=== PATIENT | female | born 1995 | race Caucasian/White ===

== ENCOUNTER → 2016-10-09 | Outpatient (CLI) | payer MEDICAID ==
[~2016-10-09] MED LIST: ACHD5005 PO; IBP600T1 PO; LVT.05T PO; PREN1TAB19 PO
--- NOTE | 2016-10-09 19:42 | Diagnostic Imaging Report ---
OB ultrasound. INDICATION: survey. FINDINGS: There is a single intrauterine . heart rate is 165 beats per minutes. The placenta is anterior. There is no placenta previa. The cervix is 4.4 cm in length and is closed. The posterior fossa, the lateral ventricles, the urinary bladder, the stomach, the mid and lower spine appear unremarkable. The cord insertion, the three-vessel view, the four-chamber view, and the upper spine are not well seen. The kidneys demonstrate no hydronephrosis or cystic mass. The growth parameters are BPD at 22 weeks and 4 days, head circumference at 22 weeks and 1 day, abdominal circumference at 21 weeks and 0 days, and femur length at 22 weeks and 4 days. These are all averaged at 22 weeks and 1 day which is concordant with provided WANDA established at an outside facility of 02/14/2017 with current gestational age of 21 weeks and 5 days. IMPRESSION: Follow-up study to reevaluate the upper spine, four-chamber view, the cord insertion, and three-vessel cord is recommended. Dictated by: Dictated on workstation # [id number]
== END ==
LOC: RAD 15:28
PROVIDERS: ATTEND Family Medicine
DX: O09.212 Supervision of pregnancy with history of pre-term labor, second trimester (principal); Z3A.22 22 weeks gestation of pregnancy
CPT/HCPCS: 76805

== ENCOUNTER 2016-11-13 18:42 | Outpatient (CLI) | payer MEDICAID ==
[~2016-11-13] VITALS: Ht 160 cm; Wt 55.3 kg
[2016-11-13 19:07] VITALS: BP 113/70
== END 2016-11-13 19:50 | disposition home or self-care (01) ==
LOC: WSo 18:42
PROVIDERS: ATTEND Family Medicine
DX: O99.52 Diseases of the respiratory system complicating childbirth (principal); R07.89 Other chest pain; Z3A.23 23 weeks gestation of pregnancy
CPT/HCPCS: 99212

== ENCOUNTER 2016-11-13 19:54 | Emergency (ER) | payer MEDICAID ==
[~2016-11-13] VITALS: Ht 160 cm; Wt 55.3 kg
[2016-11-13] MEDS ORDERED: NS IV 1000 ML 1,000 ML IV ONE (20:36)
[2016-11-13 20:44] LABS: BASOPHILS % (AUTO) 0 % (0-10); EOSINOPHILS # (AUTO) 0.1 10^3/uL (0.0-0.3); EOSINOPHILS % (AUTO) 1 % (0-10); LYMPHOCYTES # (AUTO) 3.4 X 10^3 (1.0-4.0); LYMPHOCYTES % (AUTO) 31 % (12-44); MEAN CORPUSCULAR HEMOGLOBIN 31 PG (25-34); MEAN CORPUSCULAR HGB CONC 34 G/DL (32-36); MEAN CORPUSCULAR VOLUME 90 FL (80-99); MEAN PLATELET VOLUME 10.1 FL (7.4-10.4); MONOCYTES # (AUTO) 0.9 X 10^3 (0.0-1.0); MONOCYTES % (AUTO) 8 % (0-12); NEUTROPHILS # (AUTO) 6.5 X 10^3 (1.8-7.8); NEUTROPHILS % (AUTO) 59 % (42-75); PLATELET COUNT 312 10^3/uL (130-400); RED BLOOD COUNT 3.98 10^6/uL (4.35-5.85)
[2016-11-13] MEDS ORDERED: ANTACID SUSP 30 ML UDC (MYLANTA) PO ONE (20:45)
[2016-11-13] MEDS ORDERED: FAMOTIDINE 20MG/2ML IV (PEPCID) IVP ONE (20:45)
[2016-11-13] MEDS ORDERED: LIDOCAINE 2% VISCOUS 15 ML UDC PO ONE (20:45)
[2016-11-13 20:54] LABS: BILIRUBIN,URINE NEGATIVE (NEGATIVE); KETONES,URINE NEGATIVE (NEGATIVE); LEUKOCYTE ESTERASE ,URINE 1+ (NEGATIVE); NITRITE,URINE NEGATIVE (NEGATIVE); PH,URINE 8 (5-9); PROTEIN,URINE NEGATIVE (NEGATIVE); UROBILINOGEN,URINE NORMAL (NORMAL)
[2016-11-13 20:55] LABS: WBC,URINE 0-2 /HPF
[2016-11-13 20:58] LABS: ALANINE AMINOTRANSFERASE 24 U/L (0-55); ALBUMIN 3.7 G/DL (3.2-4.5); ANION GAP 9 MMOL/L (5-14); ASPARTATE AMINO TRANSFERASE 22 U/L (5-34); BILIRUBIN,TOTAL 0.4 MG/DL (0.1-1.0); BLOOD UREA NITROGEN 10 MG/DL (7-18); BUN/CREATININE RATIO 13; CALCIUM 9.2 MG/DL (8.5-10.1); CARBON DIOXIDE 21 MMOL/L (21-32); CHLORIDE 106 MMOL/L (98-107); CREATININE SERUM 0.79 MG/DL (0.60-1.30); GFR ESTIMATED > 60; GLUCOSE 88 MG/DL (70-105); MAGNESIUM 2.1 MG/DL (1.8-2.4); POTASSIUM 3.4 MMOL/L (3.6-5.0); SODIUM 136 MMOL/L (135-145); TOTAL PROTEIN 7.2 G/DL (6.4-8.2)
--- NOTE | 2016-11-13 21:07 | Diagnostic Imaging Report ---
EXAMINATION: CHEST (PA AND LATERAL) CLINICAL INDICATION: 20-year-old female, chest pain. COMPARISON: None. FINDINGS: Heart size and mediastinal contours are unremarkable. There is no identified pneumothorax. There is no pleural effusion. There is no identified focal airspace consolidation. IMPRESSION: No identified acute cardiopulmonary abnormality. Dictated by: Dictated on workstation # [id number]
[2016-11-13] MEDS ORDERED: ONDANSETRON 4 MG/2 ML (SDV) Z0FRAN IVP ONE (21:15)
--- NOTE | 2016-11-13 21:15 | ED Chest Pain ---
General Chief Complaint: Chest Pain Stated Complaint: CHEST PAIN Nursing Triage Note: PT STATES SHE CAME HOME AROUND 1700 TODAY AND STARTED FEELING HEAVINESS IN HER CHEST. SHE REPORTS DIZZINESS AND SOA. HOUSE WAS FUMIGATED EARLIER TODAY. Nursing Sepsis Screen: No Definite Risk Source: patient Exam Limitations: no limitations History of Present Illness Time seen by provider: 20:05 Initial Comments This 20-year-old 5 para one at about 25 weeks gestational age presents to the emergency room with complaints of chest pressure and tightness with associated headache upon lying down and lightheadedness upon standing. Pain is worse with inspiration. She reports some lower extremity discomfort after walking. Symptoms started around 17:00 and have somewhat worsened since then. She denies any significant cough, fever, nausea, vomiting, diarrhea, or abdominal pain. She first presented to labor and delivery where she was placed on the monitor. No significant abnormalities were observed and her obstetrical provider, Dr. Albarado, requested she be evaluated in the emergency room. Patient denies any recent smoking history. She quit smoking in May. She is a resident of [facility] presently. She denies any drug or alcohol use. She does have a history of anxiety but discontinued her anxiety medications due to . She is mildly tachycardic on initial presentation. Allergies and Home Medications Allergies Coded Allergies: Penicillins (Verified Allergy, Intermediate, HIVES, 01/15/15) Home Medications Hydrocodone Bit/Acetaminophen 1 Tab Tab, 1 TAB PO Q4H PRN for PAIN, #30 Ref 0 Prescribed by: YEMI YOUNG on 02/16/15 0832 Ibuprofen 600 Mg Tab, 600 MG PO Q6H PRN for Pain, #60 Ref 0 Prescribed by: YEMI YOUNG on 02/16/15 0832 Levothyroxine Sodium 50 Mcg Tablet, 50 MCG PO DAILY, (Reported) Vit/Fe Fumarate/Fa 1 Each Tablet, 1 TAB PO DAILY, (Reported) Review of Systems Constitutional: no symptoms reported EENTM: No Symptoms Reported Respiratory: See HPI Cardiovascular: See HPI Gastrointestinal: No Symptoms Reported Genitourinary: No Symptoms Reported Musculoskeletal: no symptoms reported Skin: no symptoms reported Psychiatric/Neurological: See HPI Endocrine: No Symptoms Reported Hematologic/Lymphatic: No Symptoms Reported Past Lgomagj-Dqsmgc-Ldnwhu Hx Patient Social History Alcohol Use: Denies Use Recreational Drug Use: No Smoking Status: Former Smoker Type Used: Cigarettes Former Smoker/When Quit: Jun 19, 2014 Recent Foreign Travel: No Contact w/Someone Who Travel: No Recent Infectious Disease Expo: No Recent Hopitalizations: No Immunizations Up To Date Tetanus Booster (TDap): Unknown PED Vaccines UTD: Yes Date of Influenza Vaccine: Jun 20, 2014 Seasonal Allergies Seasonal Allergies: Yes Surgeries HX Surgeries: No Respiratory Hx Respiratory Disorders: Yes (childhood asthma) Cardiovascular Hx Cardiac Disorders: Yes Cardiac Disorders: Hypotension Neurological Hx Neurological Disorders: No Reproductive System : Yes Hx : 5 Hx Para: 1 Hx Total # of Abortions (Spona: 3 Hx Reproductive Disorders: No Sexually Transmitted Disease: No HIV/AIDS: No Female Reproductive Disorders: Denies Genitourinary Hx Genitourinary Disorders: No Gastrointestinal Hx Gastrointestinal Disorders: No Musculoskeletal Hx Musculoskeletal Disorders: No Endocrine Hx Endocrine Disorders: Yes Endocrine Disorders: Hypothyroidsim HEENT HX ENT Disorders: No Cancer Hx Cancer: No Psychosocial Hx Psychiatric Problems: Yes Behavioral Health Disorders: Anxiety Integumentary HX Skin/Integumentary Disorder: No Family Medical History Significant Family History: Heart Disease Family Medial History: Hypertension 19 FATHER Physical Exam Vital Signs Vital Sign - Last 12Hours 11/13/16 20:07 Temp 99.2 Pulse 81 Resp 16 B/P (MAP) 108/56 Pulse Ox 100 O2 Delivery Room Air Capillary Refill : Less Than 3 Seconds General Appearance: No Apparent Distress, WD/WN HEENT: PERRL/EOMI, Normal ENT Inspection, Pharynx Normal, Other (cerumen obscuring TM evaluation) Neck: Normal Inspection Respiratory: Chest Non Tender, Lungs Clear, Normal Breath Sounds, No Accessory Muscle Use, No Respiratory Distress Cardiovascular: Regular Rate, Rhythm, No Edema, No Murmur Gastrointestinal: Normal Bowel Sounds, Non Tender, Soft Extremity: Normal Inspection, Other (minimal tenderness in the right calf. 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 II-XII Norm as Tested Skin: Normal Color, Warm/Dry Progress/Results/Core Measures Results/Orders Lab Results Laboratory Tests Test 11/13/16 20:31 11/13/16 20:35 Range/Units White Blood Count 11.0 4.3-11.0 10^3/uL Red Blood Count 3.98 L 4.35-5.85 10^6/uL Hemoglobin 12.2 11.5-16.0 G/DL Hematocrit 36 35-52 % Mean Corpuscular Volume 90 80-99 FL Mean Corpuscular Hemoglobin 31 25-34 PG Mean Corpuscular Hemoglobin Concent 34 32-36 G/DL Red Cell Distribution Width 13.0 10.0-14.5 % Platelet Count 312 130-400 10^3/uL Mean Platelet Volume 10.1 7.4-10.4 FL Neutrophils (%) (Auto) 59 42-75 % Lymphocytes (%) (Auto) 31 12-44 % Monocytes (%) (Auto) 8 0-12 % Eosinophils (%) (Auto) 1 0-10 % Basophils (%) (Auto) 0 0-10 % Neutrophils # (Auto) 6.5 1.8-7.8 X 10^3 Lymphocytes # (Auto) 3.4 1.0-4.0 X 10^3 Monocytes # (Auto) 0.9 0.0-1.0 X 10^3 Eosinophils # (Auto) 0.1 0.0-0.3 10^3/uL Basophils # (Auto) 0.0 0.0-0.1 10^3/uL D-Dimer 0.46 0.00-0.49 UG/ML Sodium Level 136 135-145 MMOL/L Potassium Level 3.4 L 3.6-5.0 MMOL/L Chloride Level 106 98-107 MMOL/L Carbon Dioxide Level 21 21-32 MMOL/L Anion Gap 9 5-14 MMOL/L Blood Urea Nitrogen 10 7-18 MG/DL Creatinine 0.79 0.60-1.30 MG/DL Estimat Glomerular Filtration Rate > 60 BUN/Creatinine Ratio 13 Glucose Level 88 70-105 MG/DL Calcium Level 9.2 8.5-10.1 MG/DL Magnesium Level 2.1 1.8-2.4 MG/DL Total Bilirubin 0.4 0.1-1.0 MG/DL Aspartate Amino Transf (AST/SGOT) 22 5-34 U/L Alanine Aminotransferase (ALT/SGPT) 24 0-55 U/L Alkaline Phosphatase 74 40-136 U/L Troponin I < 0.30 <0.30 NG/ML Total Protein 7.2 6.4-8.2 G/DL Albumin 3.7 3.2-4.5 G/DL Thyroid Stimulating Hormone (TSH) 6.22 H 0.35-4.94 UIU/ML Free Thyroxine 0.99 0.70-1.48 NG/DL Urine Color YELLOW Urine Clarity CLEAR Urine pH 8 5-9 Urine Specific [place] 1.015 L 1.016-1.022 Urine Protein NEGATIVE NEGATIVE Urine Glucose (UA) NEGATIVE NEGATIVE Urine Ketones NEGATIVE NEGATIVE Urine Nitrite NEGATIVE NEGATIVE Urine Bilirubin NEGATIVE NEGATIVE Urine Urobilinogen NORMAL NORMAL MG/DL Urine Leukocyte Esterase 1+ H NEGATIVE Urine RBC (Auto) NEGATIVE NEGATIVE Urine RBC NONE /HPF Urine WBC 0-2 /HPF Urine Squamous Epithelial Cells 2-5 /HPF Urine Crystals PRESENT H /LPF Urine Amorphous Sediment MOD DAVID PHOSPHATE H /LPF Urine Bacteria NONE /HPF Urine Casts NONE /LPF Urine Mucus NEGATIVE /LPF Urine Culture Indicated NO Urine Opiates Screen NEGATIVE NEGATIVE Urine Oxycodone Screen NEGATIVE NEGATIVE Urine Methadone Screen NEGATIVE NEGATIVE Urine Propoxyphene Screen NEGATIVE NEGATIVE Urine Barbiturates Screen NEGATIVE NEGATIVE Ur Tricyclic Antidepressants Screen NEGATIVE NEGATIVE Urine Phencyclidine Screen NEGATIVE NEGATIVE Urine Amphetamines Screen NEGATIVE NEGATIVE Urine Methamphetamines Screen NEGATIVE NEGATIVE Urine Benzodiazepines Screen NEGATIVE NEGATIVE Urine Cocaine Screen NEGATIVE NEGATIVE Urine Cannabinoids Screen NEGATIVE NEGATIVE My Orders Orders - MATT BOLANOS MD Cbc With Automated Diff (11/13/16 20:04) Comprehensive Metabolic Panel (11/13/16 20:04) Ua Culture If Indicated (11/13/16 20:04) Saline Lock/Iv-Start (11/13/16 20:04) Chest Pa/Lat (2 View) (11/13/16 20:04) Drug Screen Stat (Urine) (11/13/16 20:36) Ns Iv 1000 Ml (Sodium Chloride 0.9%) (11/13/16 20:36) Magnesium (11/13/16 20:36) Famotidine Injection (Pepcid Injection) (11/13/16 20:45) Lidocaine 2% Viscous 15 Ml (Xylocaine Vi (11/13/16 20:45) Antacid Suspension (Mylanta Suspension (11/13/16 20:45) Ondansetron Injection (Zofran Injectio (11/13/16 21:15) Thyroid Stimulating Hormone (11/13/16 21:15) Free T4 (Free Thyroxine) (11/13/16 21:15) Fibrin Degradation Products (11/13/16 21:24) Troponin I (11/13/16 21:25) Albuterol Pre-Mix Nebs (Rt) (Proventil P (11/13/16 21:53) Svn Sm Volume Nebulizer Rt-Rfs (11/13/16 21:53) Rx-Albuterol Inhaler (Rx-Ventolin Hfa) (11/13/16 22:07) Medications Given in ED Current Medications Medications Dose Ordered Sig/John Route Start Time Stop Time Status Last Admin Dose Admin Al Hydrox/Mg Hydrox/Simethicone 30 ml ONCE ONCE PO 11/13/16 20:45 11/13/16 20:46 DC 11/13/16 20:52 30 ML Famotidine 20 mg ONCE ONCE IVP 11/13/16 20:45 11/13/16 20:46 DC 11/13/16 20:52 20 MG Lidocaine HCl 15 ml ONCE ONCE PO 11/13/16 20:45 11/13/16 20:46 DC 11/13/16 20:52 15 ML Ondansetron HCl 4 mg ONCE ONCE IVP 11/13/16 21:15 11/13/16 21:16 DC 11/13/16 21:17 4 MG Sodium Chloride 1,000 ml @ 0 mls/hr Q0M ONCE IV 11/13/16 20:36 11/13/16 20:37 DC 11/13/16 20:52 0 MLS/HR Vital Signs/I&O Vital Sign - Last 12Hours 11/13/16 11/13/16 20:07 20:07 Temp 99.2 Pulse 81 Resp 16 B/P (MAP) 108/56 Pulse Ox 100 O2 Delivery Room Air Room Air Blood Pressure Mean: 73 Progress Note #1: Time: 21:25 Progress Note Initial workup was relatively unremarkable. Labs still pending include thyroid studies and troponin. Patient was given a GI cocktail and Pepcid which did not improve her pain. GI cocktail caused nausea and vomiting. This was treated with Zofran. Patient is receiving a liter of IV fluids. I discussed risks and benefits of further evaluation for possible pulmonary embolism. We discussed various modalities for evaluation including d-dimer, CT angiogram, and ultrasounds of the lower extremities. Patient is very concerned that she has significant pathology in the chest. After discussion of risks and benefits including radiation exposure to her child, she requests further evaluation with a d-dimer and possibly CT angiogram if d-dimer is positive. Progress Note #2: Time: 22:08 Progress Note The remainder of the workup including d-dimer was unremarkable. Although patient had no wheezing or delayed expiratory phase on exam, and albuterol treatment was provided. Patient had immediate relief of chest discomfort with albuterol. A take-home inhaler was dispensed an education provided by respiratory therapy. ECG Initial ECG Impression Date: Nov 13, 2016 Initial ECG Impression Time: 20:13 Initial ECG Rate: 89 Initial ECG Rhythm: Normal Sinus Initial ECG Intervals: Normal Initial ECG Impression: Normal Comment Normal sinus rhythm with no ST elevation or depression. No abnormal intervals or axis deviation. Diagnostic Imaging Diagonstic Imaging: Xray Plain Films/CT/US/NM/MRI: chest Comments Chest x-ray viewed by me and report reviewed. See report below: NAME: BAUTISTA WOLF MED REC#: [id number] PT STATUS: REG ER : 1995 PHYSICIAN: MATT BOLANOS MD ADMIT DATE: 11/13/16/ER Draft Date of Exam:11/13/16 CHEST PA/LAT (2 VIEW) EXAMINATION: CHEST (PA AND LATERAL) CLINICAL INDICATION: 20-year-old female, chest pain. COMPARISON: None. FINDINGS: Heart size and mediastinal contours are unremarkable. There is no identified pneumothorax. There is no pleural effusion. There is no identified focal airspace consolidation. IMPRESSION: No identified acute cardiopulmonary abnormality. Dictated on workstation # [id number] Dict: 11/13/163 Trans: 11/13/162105 NAVID [id number] Interpreted by: DAVONTE GARZON MD Departure Impression Impression: Primary Impression: Atypical chest pain Additional Impression: Bronchospasm Disposition: 01 HOME, SELF-CARE Condition: Improved Departure-Patient Inst. Decision time for Depature: 22:10 Referrals: JARRELL PEOPLES DO (PCP/Family) Primary Care Physician Patient Instructions: BRONCHOSPASM-ADULT, Chest Pain That Is Not Caused by the Heart (DC) Add. Discharge Instructions: Follow-up with your doctor as soon as possible. Return to emergency room if symptoms worsen. You may use your inhaler up to 4 puffs in a 4 hour period of time for shortness of breath or chest discomfort. All discharge instructions reviewed with patient and/or family. Voiced understanding. Copy Copies To 1: ROMERO ALBARADO MD, JOSHUA T MD Nov 13, 2016 21:15
[2016-11-13 21:48] LABS: THYROID STIMULATING HORMONE 6.22 UIU/ML (0.35-4.94)
[2016-11-13] MEDS ORDERED: RT-ALBUTEROL SULF 2.5 MG/3 ML PRE-MIX VIAL INH STA (21:53)
[2016-11-13] MEDS ORDERED: RX-ALBUTEROL INHALER (VENTOLIN HFA) 18 GM IH STA (22:07)
[2016-11-13] MEDS ORDERED: RX-ALBUTEROL INHALER (PROAIR) 8 GM IH ONE (22:07)
[2016-11-13 22:28] VITALS: BP 110/68
== END 2016-11-13 22:28 | disposition home or self-care (01) ==
LOC: EDUNIT# 19:54 → ER 19:58
DX: R07.89 Other chest pain (principal); O99.52 Diseases of the respiratory system complicating childbirth; J98.01 Acute bronchospasm; Z3A.23 23 weeks gestation of pregnancy
CPT/HCPCS: 36415; 71020; 80053; 80306; 81000; 83735; 84439; 84443; 84484; 85025; 85379; 94640; 96361; 96374

== ENCOUNTER 2016-11-20 20:07 | Outpatient (CLI) | payer MEDICAID ==
[~2016-11-20] VITALS: Ht 160 cm; Wt 55.3 kg
[2016-11-20 20:40] VITALS: BP 105/59
[2016-11-20 21:08] LABS: BILIRUBIN,URINE NEGATIVE (NEGATIVE); KETONES,URINE 1+ (NEGATIVE); LEUKOCYTE ESTERASE ,URINE 1+ (NEGATIVE); NITRITE,URINE NEGATIVE (NEGATIVE); PH,URINE 6 (5-9); PROTEIN,URINE NEGATIVE (NEGATIVE); UROBILINOGEN,URINE 1 MG/DL (NORMAL)
--- NOTE | 2016-11-21 10:46 | Physician Query-Final Dx ---
DEANA TIJERINA 11/21/16 1046: Clinic Account Progress/Dx Physician Query: Please give diagnosis Date of Service November 20, 2016 at 20:07 YEMI YOUNG MD 11/21/16 2147: Clinic Account Progress/Dx DIAGNOSIS: Diagnosis Fall 27 weeks gestation Normal heart rate and no uterine contractions in 4 hours of monitoring DEANA TIJERINA November 21, 2016 10:46 YEMI YOUNG MD November 21, 2016 21:47
== END 2016-11-21 00:42 | disposition home or self-care (01) ==
LOC: WSo 20:07 → LDRP 20:18 → WSo 11-21 00:42
PROVIDERS: ATTEND Family Medicine
DX: Z04.3 Encounter for examination and observation following other accident (principal); Z3A.27 27 weeks gestation of pregnancy
CPT/HCPCS: 81000; 99213

== ENCOUNTER 2016-12-06 09:01 | Outpatient (CLI) | payer MEDICAID ==
[~2016-12-06] VITALS: Ht 160 cm; Wt 56.3 kg
[2016-12-06 09:20] VITALS: BP 112/65
[2016-12-06] MEDS ORDERED: ALBU0.63 IH ×2 (09:39)
[2016-12-06 09:50] VITALS: BP 109/55
[2016-12-06 09:56] LABS: BILIRUBIN,URINE NEGATIVE (NEGATIVE); KETONES,URINE NEGATIVE (NEGATIVE); LEUKOCYTE ESTERASE ,URINE 2+ (NEGATIVE); NITRITE,URINE NEGATIVE (NEGATIVE); PH,URINE 7 (5-9); PROTEIN,URINE NEGATIVE (NEGATIVE); UROBILINOGEN,URINE NORMAL (NORMAL)
[2016-12-06 10:20] VITALS: BP 101/54
[2016-12-06 10:50] VITALS: BP 97/53
[2016-12-06 11:20] VITALS: BP 101/58
--- NOTE | 2016-12-09 11:35 | Physician Query-Final Dx ---
HENOK MEMBRENO 12/09/16 1135: Clinic Account Progress/Dx Physician Query: Please give diagnosis Date of Service December 06, 2016 at 09:01 YEMI YOUNG MD 12/12/16 1143: Clinic Account Progress/Dx DIAGNOSIS: Diagnosis 29 week gestation Contractions, no labor HENOK MEMBRENO December 09, 2016 11:35 YEMI YOUNG MD December 12, 2016 11:43
== END 2016-12-06 12:10 | disposition home or self-care (01) ==
LOC: WSo 09:01 → LDRP 09:04 → WSo 12:10
PROVIDERS: ATTEND Family Medicine
DX: O47.03 False labor before 37 completed weeks of gestation, third trimester (principal); Z3A.29 29 weeks gestation of pregnancy
CPT/HCPCS: 81000; 87088; 99213

== ENCOUNTER → 2016-12-11 | Outpatient (CLI) | payer MEDICAID ==
[~2016-12-11] MED LIST changes: +ALBU0.63 IH
--- NOTE | 2016-12-11 11:59 | Diagnostic Imaging Report ---
INDICATION: Incomplete survey, evaluate cervical length. TECHNIQUE: Multiple real-time grayscale images were obtained over the gravid uterus. COMPARISON: 10/09/2016. FINDINGS: The heart rate is 132 BPM. The placenta is anterior with no placenta previa. The amniotic fluid index is 10.6 cm. On the previous study, the upper spine, four-chamber view, cord insertion, and three-vessel cord were not well seen. On the current study, the upper spine, three-vessel cord, and four-chamber view are seen with no abnormality. The cord insertion is not well seen. The fetus is in cephalic position. This partially obscures the cervix which appears grossly normal. It is roughly 3.1 cm in length and appears to be closed. IMPRESSION: The three-vessel cord, spine, and four-chamber view appear unremarkable. The cord insertion is still not well seen. Consider re-evaluation. Dictated by: Dictated on workstation # [id number]
== END ==
LOC: RAD 10:05
PROVIDERS: ATTEND Family Medicine
DX: Z36 Encounter for antenatal screening of mother (principal); Z3A.00 Weeks of gestation of pregnancy not specified
CPT/HCPCS: 76816

== ENCOUNTER 2016-12-20 13:47 | Outpatient (CLI) | payer MEDICAID ==
[~2016-12-20] VITALS: Ht 162.6 cm; Wt 56.9 kg
[2016-12-20 14:02] VITALS: BP 110/75
[2016-12-20 14:24] LABS: BILIRUBIN,URINE NEGATIVE (NEGATIVE); KETONES,URINE NEGATIVE (NEGATIVE); LEUKOCYTE ESTERASE ,URINE 1+ (NEGATIVE); NITRITE,URINE NEGATIVE (NEGATIVE); PH,URINE 8 (5-9); PROTEIN,URINE NEGATIVE (NEGATIVE); UROBILINOGEN,URINE NORMAL (NORMAL)
[2016-12-20 14:37] LABS: WBC,URINE 0-2 /HPF
== END 2016-12-20 16:40 | disposition home or self-care (01) ==
LOC: WSo 13:47 → LDRP 13:50 → WSo 16:40
PROVIDERS: ATTEND Family Medicine
DX: O47.03 False labor before 37 completed weeks of gestation, third trimester (principal); Z3A.32 32 weeks gestation of pregnancy
CPT/HCPCS: 81000; 99213

== ENCOUNTER 2016-12-22 04:32 | Inpatient (IN) | payer MEDICAID ==
[~2016-12-22] VITALS: Ht 162.6 cm; Wt 57.4 kg
[2016-12-22 04:50] VITALS: BP 119/61
[2016-12-22 05:00] LABS: BILIRUBIN,URINE NEGATIVE (NEGATIVE); KETONES,URINE NEGATIVE (NEGATIVE); LEUKOCYTE ESTERASE ,URINE NEGATIVE (NEGATIVE); NITRITE,URINE NEGATIVE (NEGATIVE); PH,URINE 7 (5-9); PROTEIN,URINE NEGATIVE (NEGATIVE); UROBILINOGEN,URINE NORMAL (NORMAL)
[2016-12-22] MEDS ORDERED: D5 LR IV SOLUTION 1,000 ML IV ONE (05:11)
[2016-12-22] MEDS ORDERED: BETAMETHASONE ACE/NA PHOS 6 MG/ML (CELESTONE SOLUSPAN) IM ONE (05:30)
[2016-12-22] MEDS ORDERED: TERBUTALINE INJ 1 MG/ML (BRETHINE) AMP ONE (05:34)
[2016-12-22] MEDS: D5 LR IV SOLUTION 1,000 ML IV SCH ×2 (05:45→06:30)
[2016-12-22] MEDS ORDERED: TERBUTALINE INJ 1 MG/ML (BRETHINE) AMP SC PRN (05:45)
[2016-12-22 05:46] LABS: BASOPHILS % (AUTO) 0 % (0-10); EOSINOPHILS # (AUTO) 0.2 10^3/uL (0.0-0.3); EOSINOPHILS % (AUTO) 2 % (0-10); LYMPHOCYTES # (AUTO) 2.7 X 10^3 (1.0-4.0); LYMPHOCYTES % (AUTO) 30 % (12-44); MEAN CORPUSCULAR HEMOGLOBIN 30 PG (25-34); MEAN CORPUSCULAR HGB CONC 33 G/DL (32-36); MEAN CORPUSCULAR VOLUME 90 FL (80-99); MEAN PLATELET VOLUME 10.9 FL (7.4-10.4); MONOCYTES # (AUTO) 0.6 X 10^3 (0.0-1.0); MONOCYTES % (AUTO) 7 % (0-12); NEUTROPHILS # (AUTO) 5.4 X 10^3 (1.8-7.8); NEUTROPHILS % (AUTO) 60 % (42-75); PLATELET COUNT 265 10^3/uL (130-400); RED BLOOD COUNT 3.66 10^6/uL (4.35-5.85); RED CELL DISTRIBUTION WIDTH 12.2 % (10.0-14.5); WHITE BLOOD COUNT 8.9 10^3/uL (4.3-11.0)
--- NOTE | 2016-12-22 05:56 | Short Stay Summary ---
HPI History of Present Illness: 21 yo at 31+6 presented to L&D with complaint of contractions and leaking fluid. She was seen a few days ago with contractions but no cervical change at that time. On this visit, nursing exam revealed cervix dilated to 2.5 cm (change from 1 cm on previous visit) and positive nitrazine testing with contractions on the monitor every 2-6 minutes. Date seen by provider: Dec 22, 2016 Time seen by provider: 05:50 Attending Physician Yemi Hahn MD PCP Yemi Hahn MD Consult Date of Admission Dec 22, 2016 at 5:12 am Home Medications Home Medications Reviewed patient Home Medication Reconciliation Form Allergies Coded Allergies: Penicillins (Verified Allergy, Intermediate, HIVES, 01/15/15) EFV-Vrdkvh-Onlgnk Hx Patient Social History Alcohol Use: Denies Use Recreational Drug Use: No Smoking Status: Former Smoker Former smoker/When Quit: Jun 19, 2014 Type Used: Cigarettes Recent Foreign Travel: No Contact w/other who traveled: No Recent Hopitalizations: No Recent Infectious Disease Expo: No Physical Abuse Screen: No Sexual Abuse: No Immunizations Up To Date Tetanus Booster (TDap): Unknown Date of Influenza Vaccine: Jun 20, 2014 Past Medical History PMH: Subclinical hypothyroidism PSH: none Family Medical History Significant Family History: Heart Disease, Hypertension Review of Systems ([facility]) Constitutional: No fever EENTM: no symptoms reported Respiratory: no symptoms reported Cardiovascular: no symptoms reported Gastrointestinal: no symptoms reported Genitourinary: see HPI : Yes Expected Date of Delivery: Feb 17, 2017 Musculoskeletal: no symptoms reported Skin: no symptoms reported Psychiatric/Neurological: Anxiety Physical Exam-([facility]) Physical Exam Vital Signs General Appearance: WD/WN Respiratory: no respiratory distress Gastrointestinal: other (gravid) Extremities: no pedal edema Neurologic/Psychiatric: alert, normal mood/affect, oriented x 3 Skin: normal color, warm/dry Short Stay Diagnosis Discharge Diagnosis-Short Stay Admission Diagnosis 31 week gestation Possible premature rupture of membranes Possible labor Final Discharge Diagnosis 31 week gestation Possible premature rupture of membranes Possible labor Conclusion Plan 31 week gestation- complicated by h/o delivery at 36 weeks, on progesterone injections weekly this and subclinical hypothyroidism on levothyroxine Possible premature rupture of membranes and labor- discussed with Dr. Whitmore at [facility] in [place] who accepts for transfer. Given 12 mg IM betamethasone and 0.25 mg terbutaline before transfer Clinical Quality Measures DVT/VTE Risk/Contraindication: Risk Factor Score Per Nursin RFS Level Per Nursing on Admit: 1=Low/No VTE PPX Copy Copies To 1: YEMI HAHN MD, BETHANY N MD Dec 22, 2016 5:56 am
== END 2016-12-22 06:50 | disposition short-term general hospital (02) | DRG 781 ==
LOC: WSo 04:32 → LDRP 04:32 → WSo 05:12
PROVIDERS: ADMIT Family Medicine; ATTEND Family Medicine
DX: O42.92 Full-term premature rupture of membranes, unspecified as to length of time between rupture and onset of labor (principal); O60.03 Preterm labor without delivery, third trimester; O99.283 Endocrine, nutritional and metabolic diseases complicating pregnancy, third trimester; E02 Subclinical iodine-deficiency hypothyroidism; Z3A.31 31 weeks gestation of pregnancy
CPT/HCPCS: 36415; 81000; 85025

== ENCOUNTER → 2016-12-26 | Outpatient (CLI) | payer MEDICAID ==
--- NOTE | 2016-12-26 17:09 | Diagnostic Imaging Report ---
INDICATION: Followup cord insertion and growth. TECHNIQUE: Multiple real-time grayscale images were obtained over the gravid uterus. COMPARISON: None FINDINGS: heart rate is 139 beats per minute. Amniotic fluid index is 10.7 cm. The placenta is anterior. No placenta previa. position is cephalic. The cord insertion is still not seen. Biometrical measurements are as follows: Biparietal 6.48 cm, age 34 weeks 2 days, at 80 percentile. Head circumference 29.88 cm, age 33 weeks 1 days, at 20 percentile. Abdominal circumference 26.94 cm, age 31 weeks 1 days, at 8 percentile. Femur length 6.5 cm, age 33 weeks 4 days, at 57 percentile. Sonographic estimate age: 33 weeks 1 days. This compares to 52 weeks and 6 days of gestation based on WANDA of 02/14/2017. Sonographic estimated date of delivery: 02/12/2017. Estimated Weight: 1939 gm (+/- 283 gm). LMP percentile: 24%. heart rate: 139 beats per minute. number: 1 of 1. IMPRESSION: The abdominal circumference is at the 8th percentile. The cord insertion is the still not well seen. Dictated by: Dictated on workstation # [id number]
== END ==
LOC: RAD 10:22
PROVIDERS: ATTEND Family Medicine
DX: Z36 Encounter for antenatal screening of mother (principal); Z3A.33 33 weeks gestation of pregnancy
CPT/HCPCS: 76816

== ENCOUNTER → 2017-01-09 | Outpatient (CLI) | payer MEDICAID | DX: Z36 Encounter for antenatal screening of mother (principal); Z3A.33 33 weeks gestation of pregnancy; R74.8 Abnormal levels of other serum enzymes; K83.1 Obstruction of bile duct ==

== ENCOUNTER 2017-01-10 15:22 | Observation (INO) | payer MEDICAID ==
[~2017-01-10] VITALS: Ht 162.6 cm; Wt 57.2 kg
[2017-01-10] VITALS (7 sets, daily range): BP systolic 119–136; BP diastolic 67–90
[2017-01-10] MEDS ORDERED: ACETAMINOPHEN 500 MG TAB (TYLENOL) PO NR (16:00)
[2017-01-10] MEDS ORDERED: ONDANSETRON 4 MG (ZOFRAN) ORAL DISSOLVE TAB PO PRN (16:00)
[2017-01-10 16:02] LABS: KETONES,URINE 1+ (NEGATIVE); LEUKOCYTE ESTERASE ,URINE 3+ (NEGATIVE); NITRITE,URINE NEGATIVE (NEGATIVE); PH,URINE 6 (5-9); PROTEIN,URINE 2+ (NEGATIVE); UROBILINOGEN,URINE 4 MG/DL (NORMAL)
[2017-01-10 16:15] LABS: BILIRUBIN,URINE 1+ (NEGATIVE); WBC,URINE 25-50 /HPF
[2017-01-10 16:29] LABS: BASOPHILS % (AUTO) 0 % (0-10); EOSINOPHILS # (AUTO) 0.1 10^3/uL (0.0-0.3); EOSINOPHILS % (AUTO) 1 % (0-10); LYMPHOCYTES # (AUTO) 1.8 X 10^3 (1.0-4.0); LYMPHOCYTES % (AUTO) 20 % (12-44); MEAN CORPUSCULAR HEMOGLOBIN 29 PG (25-34); MEAN CORPUSCULAR HGB CONC 33 G/DL (32-36); MEAN CORPUSCULAR VOLUME 89 FL (80-99); MEAN PLATELET VOLUME 11.6 FL (7.4-10.4); MONOCYTES # (AUTO) 0.5 X 10^3 (0.0-1.0); MONOCYTES % (AUTO) 5 % (0-12); NEUTROPHILS # (AUTO) 6.9 X 10^3 (1.8-7.8); NEUTROPHILS % (AUTO) 75 % (42-75); PLATELET COUNT 279 10^3/uL (130-400); RED CELL DISTRIBUTION WIDTH 12.7 % (10.0-14.5); WHITE BLOOD COUNT 9.3 10^3/uL (4.3-11.0)
[2017-01-10 16:40] LABS: INR 0.9 (0.8-1.4); PROTHROMBIN TIME PATIENT 11.4 SEC (12.2-14.7)
[2017-01-10 16:48] LABS: ALANINE AMINOTRANSFERASE 724 U/L (0-55); ALBUMIN 3.5 GM/DL (3.2-4.5); ANION GAP 10 MMOL/L (5-14); ASPARTATE AMINO TRANSFERASE 510 U/L (5-34); BLOOD UREA NITROGEN 15 MG/DL (7-18); BUN/CREATININE RATIO 20 (0-20); CALCIUM 9.2 MG/DL (8.5-10.1); CARBON DIOXIDE 19 MMOL/L (21-32); CHLORIDE 107 MMOL/L (98-107); CREATININE SERUM 0.75 MG/DL (0.60-1.30); GFR ESTIMATED > 60; GLUCOSE 98 MG/DL (70-105); HEMOLYSIS -1 (-100-29); ICTERUS 1.4 (-100-1.9); LACTATE DEHYDROGENASE 413 U/L (125-220); LIPEMIA 14 (-100-49); POTASSIUM 3.8 MMOL/L (3.6-5.0); SODIUM 136 MMOL/L (135-145); TOTAL PROTEIN 7.6 GM/DL (6.4-8.2); URIC ACID 5.9 MG/DL (2.6-7.2)
[2017-01-10] MEDS ORDERED: BETAMETHASONE ACE/NA PHOS 6 MG/ML (CELESTONE SOLUSPAN) ONE (17:37)
--- NOTE | 2017-01-10 17:59 | Short Stay Summary ---
HPI History of Present Illness: 21-year-old 4 term 1 L1 female currently at 34 weeks gestation who presents to via [facility] women's services with cholestasis. She has had laboratory performed which reveals her AST of 510, ALT of 724 and an LDH of 413. She does also admit to tenderness in the right upper quadrant of her abdomen. She has received betamethasone IM last week and has received one today as well. Her previous was full term and was without complications of cholestasis. Source: patient Exam Limitations: no limitations Date seen by provider: Jan 10, 2017 Time Seen by Provider: 17:40 Attending Physician Gogo Hahn MD PCP Gogo Hahn MD Consult Date of Admission Jan 10, 2017 at 15:22 Home Medications Home Medications Reviewed patient Home Medication Reconciliation Form Allergies Coded Allergies: Penicillins (Verified Allergy, Intermediate, HIVES, 01/15/15) [id number] Hx Patient Social History Number of Children: 1 Former smoker/When Quit: Jun 19, 2014 Type Used: Cigarettes Recent Foreign Travel: No Contact w/other who traveled: No Recent Hopitalizations: No Recent Infectious Disease Expo: No Physical Abuse Screen: No Sexual Abuse: No Immunizations Up To Date Tetanus Booster (TDap): Unknown Date of Influenza Vaccine: Jun 20, 2014 Past Medical History PMH: Subclinical hypothyroidism PSH: none Family Medical History Significant Family History: Heart Disease, Hypertension Family History: Hypertension 19 FATHER Review of Systems ([facility]) Date Seen by Provider: Jan 10, 2017 Time Seen by Provider: 17:40 Constitutional: see HPI Reviewed Test Results Reviewed Test Results Lab Laboratory Tests Test 01/10/17 15:45 01/10/17 16:20 Range/Units Urine Color YELLOW Urine Clarity SLIGHTLY CLOUDY Urine pH 6 5-9 Urine Specific [place] 1.020 1.016-1.022 Urine Protein 2+ H NEGATIVE Urine Glucose (UA) NEGATIVE NEGATIVE Urine Ketones 1+ H NEGATIVE Urine Nitrite NEGATIVE NEGATIVE Urine Bilirubin 1+ H NEGATIVE Urine Urobilinogen 4 H NORMAL MG/DL Urine Leukocyte Esterase 3+ H NEGATIVE Urine RBC (Auto) 1+ H NEGATIVE Urine RBC RARE /HPF Urine WBC 25-50 H /HPF Urine Squamous Epithelial Cells 10-25 H /HPF Urine Crystals NONE /LPF Urine Bacteria MODERATE H /HPF Urine Casts NONE /LPF Urine Mucus SMALL H /LPF Urine Culture Indicated YES White Blood Count 9.3 4.3-11.0 10^3/uL Red Blood Count 4.10 L 4.35-5.85 10^6/uL Hemoglobin 12.0 11.5-16.0 G/DL Hematocrit 36 35-52 % Mean Corpuscular Volume 89 80-99 FL Mean Corpuscular Hemoglobin 29 25-34 PG Mean Corpuscular Hemoglobin Concent 33 32-36 G/DL Red Cell Distribution Width 12.7 10.0-14.5 % Platelet Count 279 130-400 10^3/uL Mean Platelet Volume 11.6 H 7.4-10.4 FL Neutrophils (%) (Auto) 75 42-75 % Lymphocytes (%) (Auto) 20 12-44 % Monocytes (%) (Auto) 5 0-12 % Eosinophils (%) (Auto) 1 0-10 % Basophils (%) (Auto) 0 0-10 % Neutrophils # (Auto) 6.9 1.8-7.8 X 10^3 Lymphocytes # (Auto) 1.8 1.0-4.0 X 10^3 Monocytes # (Auto) 0.5 0.0-1.0 X 10^3 Eosinophils # (Auto) 0.1 0.0-0.3 10^3/uL Basophils # (Auto) 0.0 0.0-0.1 10^3/uL Prothrombin Time 11.4 L 12.2-14.7 SEC INR Comment 0.9 0.8-1.4 Sodium Level 136 135-145 MMOL/L Potassium Level 3.8 3.6-5.0 MMOL/L Chloride Level 107 98-107 MMOL/L Carbon Dioxide Level 19 L 21-32 MMOL/L Anion Gap 10 5-14 MMOL/L Blood Urea Nitrogen 15 7-18 MG/DL Creatinine 0.75 0.60-1.30 MG/DL Estimat Glomerular Filtration Rate > 60 BUN/Creatinine Ratio 20 0-20 Glucose Level 98 70-105 MG/DL Uric Acid 5.9 2.6-7.2 MG/DL Calcium Level 9.2 8.5-10.1 MG/DL Total Bilirubin 1.0 0.1-1.0 MG/DL Aspartate Amino Transf (AST/SGOT) 510 H 5-34 U/L Alanine Aminotransferase (ALT/SGPT) 724 H 0-55 U/L Alkaline Phosphatase 206 H 40-136 U/L Lactate Dehydrogenase 413 H 125-220 U/L Total Protein 7.6 6.4-8.2 GM/DL Albumin 3.5 3.2-4.5 GM/DL Physical Exam-([facility]) Physical Exam Vital Signs VS - Last 72 Hours, by Label 01/10/17 01/10/17 01/10/17 16:00 16:30 17:00 Pulse 80 90 70 Resp 20 20 20 B/P (MAP) 131/77 133/76 120/67 O2 Delivery Room Air Room Air Room Air Capillary Refill : General Appearance: no apparent distress Neck: supple Respiratory: lungs clear Cardiovascular: regular rate, rhythm Gastrointestinal: soft, tenderness (noted in the right upper quadrant but no rebound or guarding) Comments cervix check deferred due to no contractions Short Stay Diagnosis Discharge Diagnosis-Short Stay Admission Diagnosis 1. Intrauterine at 34 weeks gestation 2. Cholestasis of 3. Elevated liver enzymes complicating number 2 Final Discharge Diagnosis 1. Intrauterine at 34 weeks gestation 2. Cholestasis of 3. Elevated liver enzymes complicating number 2 Conclusion Plan 1. Patient has been informed of the clinical findings. Dr. Cui has spoke with Dr. Wu Wall regarding transferred to [place] for further obstetrical care due to the now elevated liver enzymes and possible need for early delivery. Patient was informed of the risks of staying here; i.e., worsening liver enzymes as well as harm to the unborn infant. Arrangements are in progress for transfer to [place] at [facility] obstetrical department. LARRY THOMAS MD Jan 10, 2017 17:59
[2017-01-10] MEDS ORDERED: BETAMETHASONE ACE/NA PHOS 6 MG/ML (CELESTONE SOLUSPAN) IM SCH (18:00)
--- OUTSIDE RECORDS SUMMARY | 2017-01-13 15:15 | XMS REPORT | Continuity of Care Document ---
Author Author [facility] Address Unknown Phone Unavailable Allergies Active Description Code Type Severity Reaction Onset Reported/Identified Relationship to Patient Clinical Status Yes Penicillins [id number] Drug Allergy Moderate HIVES 01/15/2015 Medications Problems Date Dx Coded Attending Type Code Diagnosis Diagnosed By 10/17/2009 SHIRA MENDOZA APRN V03.89 NEED FOR OTHER SPECIFIED PROPHYLACTIC VACCINATIONS AND INOCULATIONS AGAINST SINGLE BACTERIAL DISEASES 10/17/2009 SHIRA MENDOZA APRN V05.3 HEPATITIS VIRAL/ALL 10/17/2009 SHIRA MENDOZA APRN N V05.4 VARICELLA, CHICKENPOX 10/17/2009 SHIRA MENDOZA APRN N V20.2 WELL CHILD, ROUTINE 10/17/2009 PEOPLES DO, JARRELL K V03.89 NEED FOR OTHER SPECIFIED PROPHYLACTIC VACCINATIONS AND INOCULATIONS AGAINST SINGLE BACTERIAL DISEASES 10/17/2009 PEOPLES DO, JARRELL K V05.3 HEPATITIS VIRAL/ALL 10/17/2009 PEOPLES DO, JARRELL K V05.4 VARICELLA, CHICKENPOX 10/17/2009 PEOPLES DO, JARRELL K V20.2 WELL CHILD, ROUTINE 10/17/2009 PEOPLES DO, JARRELL K V03.89 NEED FOR OTHER SPECIFIED PROPHYLACTIC VACCINATIONS AND INOCULATIONS AGAINST SINGLE BACTERIAL DISEASES 10/17/2009 PEOPLES DO, JARRELL K V05.3 HEPATITIS VIRAL/ALL 10/17/2009 PEOPLES DO, JARRELL K V05.4 VARICELLA, CHICKENPOX 10/17/2009 PEOPLES DO, JARRELL K V20.2 WELL CHILD, ROUTINE 10/17/2009 PEOPLES DO, JARRELL K V03.89 NEED FOR OTHER SPECIFIED PROPHYLACTIC VACCINATIONS AND INOCULATIONS AGAINST SINGLE BACTERIAL DISEASES 10/17/2009 PEOPLES DO, JARRELL K V05.3 HEPATITIS VIRAL/ALL 10/17/2009 PEOPLES DO, JARRELL K V05.4 VARICELLA, CHICKENPOX 10/17/2009 PEOPLES DO, JARRELL K V20.2 WELL CHILD, ROUTINE 10/17/2009 PEOPLES DO, JARRELL K V03.89 NEED FOR OTHER SPECIFIED PROPHYLACTIC VACCINATIONS AND INOCULATIONS AGAINST SINGLE BACTERIAL DISEASES 10/17/2009 PEOPLES DO, JARRELL K V05.3 HEPATITIS VIRAL/ALL 10/17/2009 PEOPLES DO, JARRELL K V05.4 VARICELLA, CHICKENPOX 10/17/2009 PEOPLES DO, JARRELL K V20.2 WELL CHILD, ROUTINE 02/07/2014 SHIRA MENDOZA APRN V72.41 TEST NEGATIVE RESULT 02/07/2014 PEOPLES DO, JARRELL K V72.41 TEST NEGATIVE RESULT 02/07/2014 PEOPLES DO, JARRELL K V72.41 TEST NEGATIVE RESULT 02/07/2014 PEOPLES DO, JARRELL K V72.41 TEST NEGATIVE RESULT 02/07/2014 PEOPLES DO, JARRELL K V72.41 TEST NEGATIVE RESULT 04/12/2014 PEOPLES DO, JARRELL K V70.5 HEALTH EXAMINATION OF DEFINED SUBPOPULATIONS 04/12/2014 PEOPLES DO, JARRELL K V70.5 HEALTH EXAMINATION OF DEFINED SUBPOPULATIONS 04/12/2014 PEOPLES DO, JARRELL K V70.5 HEALTH EXAMINATION OF DEFINED SUBPOPULATIONS 04/12/2014 PEOPLES DO, JARRELL K V70.5 HEALTH EXAMINATION OF DEFINED SUBPOPULATIONS 04/13/2014 PEOPLES DO, JARRELL K V72.42 TEST POSITIVE RESULT 04/13/2014 PEOPLES DO, JARRELL K V72.42 TEST POSITIVE RESULT 04/13/2014 PEOPLES DO, JARRELL K V72.42 TEST POSITIVE RESULT 07/20/2014 PEOPLES DO, JARRELL K 487.1 INFLUENZA WITH OTHER RESPIRATORY MANIFESTATIONS 07/20/2014 PEOPLES DO, JARRELL K 780.60 FEVER UNSPECIFIED 07/20/2014 PEOPLES DO, JARRELL K 786.2 COUGH 07/20/2014 PEOPLES DO, JARRELL K 487.1 INFLUENZA WITH OTHER RESPIRATORY MANIFESTATIONS 07/20/2014 PEOPLES DO, JARRELL K 780.60 FEVER UNSPECIFIED 07/20/2014 PEOPLES DO, JARRELL K 786.2 COUGH 10/12/2014 PEOPLES DO, JARRELL K V22.0 , NORMAL FIRST 11/01/2014 PEOPLES DO, JARRELL K Ot V22.0 12/27/2014 PEOPLES DO, JARRELL K Ot V22.0 12/27/2014 PEOPLES DO, JARRELL K Ot V22.0 01/14/2015 SEUN ROGERS APRN Ot V23.7 01/14/2015 SUE, SEUN A ELECTRICAL INSTALLATION SUPERVISOR Ot V28.81 01/15/2015 HANNAH TELLES, YEMI Arriaga Ot 644.03 THRT AL LABOR-ANTEPART 02/10/2015 JARRELL PEOPLES DO Ot 644.03 THRT AL LABOR-ANTEPART 02/12/2015 JARRELL PEOPLES DO Ot 644.03 THRT AL LABOR-ANTEPART 02/15/2015 JARRELL PEOPLES DO Ot V22.0 02/15/2015 SUE SEUN A ELECTRICAL INSTALLATION SUPERVISOR Ot V23.7 02/15/2015 SUE SEUN A ELECTRICAL INSTALLATION SUPERVISOR Ot V28.81 02/16/2015 JARRELL PEOPLES DO Ot 244.9 HYPOTHYROIDISM NOS 02/16/2015 JARRELL PEOPLES DO Ot 644.21 EARLY ONSET DELIVERY-DEL 02/16/2015 JARRELL PEOPLES DO Ot 648.11 THYROID DYSFUNC-DELIVER 02/16/2015 JARRELL PEOPLES DO Ot 664.11 DEL W 2 DEG LACERAT-DEL 02/16/2015 JARRELL PEOPLES DO Ot V27.0 DELIVER-SINGLE LIVEBORN 10/09/2016 JARRELL PEOPLES DO Ot V22.0 SUPERVIS NORMAL 1ST PREG 10/09/2016 SEUN ROGERS A ELECTRICAL INSTALLATION SUPERVISOR Ot V23.7 INSUFFICIENT CARE 10/09/2016 SUE SEUN A ELECTRICAL INSTALLATION SUPERVISOR Ot V28.81 ENCOUNTER FOR ANATOMIC SURVEY 10/09/2016 JARRELL PEOPLES DO Ot V22.0 SUPERVIS NORMAL 1ST PREG 10/09/2016 SEUN ROGERS ELECTRICAL INSTALLATION SUPERVISOR Ot V23.7 INSUFFICIENT CARE 10/09/2016 SUE SEUN A ELECTRICAL INSTALLATION SUPERVISOR Ot V28.81 ENCOUNTER FOR ANATOMIC SURVEY 10/10/2016 JARRELL PEOPLES DO Ot O09.212 SUPRVSN OF PREG W HISTORY OF PRE-TERM LA 10/10/2016 JARRELL PEOPLES DO Ot Z3A.22 22 WEEKS GESTATION OF 10/23/2016 JARRELL PEOPLES DO Ot O09.212 SUPRVSN OF PREG W HISTORY OF PRE-TERM LA 10/23/2016 JARRELL PEOPLES DO Ot Z3A.22 22 WEEKS GESTATION OF 11/13/2016 ROMERO ALBARADO MD Ot O99.52 DISEASES OF THE RESPIRATORY SYSTEM COMPL 11/13/2016 ROMERO ALBARADO MD Ot R07.89 OTHER CHEST PAIN 11/13/2016 ROMERO ALBARADO MD Ot Z3A.23 23 WEEKS GESTATION OF 11/13/2016 JARRELL PEOPLES DO Ot V22.0 SUPERVIS NORMAL 1ST PREG 11/13/2016 SEUN ROGERS ELECTRICAL INSTALLATION SUPERVISOR Ot V23.7 INSUFFICIENT CARE 11/13/2016 SEUN ROGERS ELECTRICAL INSTALLATION SUPERVISOR Ot V28.81 ENCOUNTER FOR ANATOMIC SURVEY 11/13/2016 JARRELL PEOPLES DO K Ot O09.212 SUPRVSN OF PREG W HISTORY OF PRE-TERM LA 11/13/2016 JARRELL PEOPLES DO Ot Z3A.22 22 WEEKS GESTATION OF 11/13/2016 MATT BOLANOS MD Ot J98.01 ACUTE BRONCHOSPASM 11/13/2016 MATT BOLANOS MD Ot O99.52 DISEASES OF THE RESPIRATORY SYSTEM COMPL 11/13/2016 MATT BOLANOS MD Ot R07.89 OTHER CHEST PAIN 11/13/2016 MATT BOLANOS MD Ot R07.9 CHEST PAIN, UNSPECIFIED 11/13/2016 MATT BOLANOS MD Ot Z3A.23 23 WEEKS GESTATION OF 11/14/2016 MATT BOLANOS MD Ot J98.01 ACUTE BRONCHOSPASM 11/14/2016 MATT BOLANOS MD Ot O99.52 DISEASES OF THE RESPIRATORY SYSTEM COMPL 11/14/2016 MATT BOLANOS MD Ot R07.89 OTHER CHEST PAIN 11/14/2016 MATT BOLANOS MD Ot R07.9 CHEST PAIN, UNSPECIFIED 11/14/2016 MATT BOLANOS MD Ot Z3A.23 23 WEEKS GESTATION OF 11/21/2016 YEMI YOUNG MD Ot Z04.3 ENCOUNTER FOR EXAM AND OBSERVATION FOLLO 11/21/2016 YEMI YOUNG MD, Ot Z3A.27 27 WEEKS GESTATION OF 12/06/2016 JARRELL PEOPLES DO Ot V22.0 SUPERVIS NORMAL 1ST PREG 12/06/2016 SEUN ROGERS ELECTRICAL INSTALLATION SUPERVISOR Ot V23.7 INSUFFICIENT CARE 12/06/2016 SEUN ROGERS ELECTRICAL INSTALLATION SUPERVISOR Ot V28.81 ENCOUNTER FOR ANATOMIC SURVEY 12/06/2016 SHELTON CORTES JARRELL Alejo Ot O09.212 SUPRVSN OF PREG W HISTORY OF PRE-TERM LA 12/06/2016 JARRELL PEOPLES DO Alejo Ot Z3A.22 22 WEEKS GESTATION OF 12/13/2016 YEMI YOUNG MD, Ot Z36 ENCOUNTER FOR SCREENING OF MOT 12/13/2016 YEMI YOUNG MD, Ot Z3A.00 WEEKS OF GESTATION OF NOT SPEC 12/20/2016 YEMI YOUNG MD, Ot Z36 ENCOUNTER FOR SCREENING OF MOT 12/20/2016 YEMI YOUNG MD, Ot Z3A.00 WEEKS OF GESTATION OF NOT SPEC 12/22/2016 YEMI YOUNG MD, Ot E02 SUBCLINICAL IODINE-DEFICIENCY HYPOTHYROI 12/22/2016 YEMI YOUNG MD Ot O42.92 FULL-TERM AL ROM, UNSP TIME BETW RUPTU 12/22/2016 YEMI YOUNG MD Ot O60.03 LABOR WITHOUT DELIVERY, THIRD TR 12/22/2016 YEMI YOUNG MD, Ot O99.283 ENDO, NUTRITIONAL AND METAB DISEASES COM 12/22/2016 YEMI YOUNG MD, Ot Z3A.31 31 WEEKS GESTATION OF 12/26/2016 YEMI YOUNG MD Ot Z36 ENCOUNTER FOR SCREENING OF MOT 12/26/2016 YEMI YOUNG MD, Ot Z3A.00 WEEKS OF GESTATION OF NOT SPEC 01/08/2017 YEMI YOUNG MD Ot Z36 ENCOUNTER FOR SCREENING OF MOT 01/08/2017 YEMI YOUNG MD, Ot Z3A.33 33 WEEKS GESTATION OF 01/10/2017 YEMI YOUNG MD, Ot K83.1 OBSTRUCTION OF BILE DUCT 01/10/2017 YEMI YOUNG MD, Ot R74.8 ABNORMAL LEVELS OF OTHER SERUM ENZYMES 01/10/2017 YEMI YOUNG MD Ot Z36 ENCOUNTER FOR SCREENING OF MOT 01/10/2017 YEMI YOUNG MD, Ot Z3A.33 33 WEEKS GESTATION OF 01/10/2017 YEMI YOUNG MD, Ot K83.1 OBSTRUCTION OF BILE DUCT 01/10/2017 YEMI YOUNG MD, Ot R74.8 ABNORMAL LEVELS OF OTHER SERUM ENZYMES 01/10/2017 YEMI YOUNG MD, Ot Z36 ENCOUNTER FOR SCREENING OF MOT 01/10/2017 YEMI YOUNG MD, Ot Z3A.33 33 WEEKS GESTATION OF Procedures Code Description [place] [address] TEST, URINE (IN-HOUSE) 02/07/2014 15844 TEST, URINE (IN-HOUSE) 04/12/2014 46499 TEST, URINE (IN-HOUSE) 04/13/2014 60296 INFLUENZA A & B (IN-HOUSE) 07/20/2014 78979 ROUTINE VENIPUNCTURE 10/12/2014 55208 US OB - COMPLETE >14 WEEKS 10/12/2014 98144 T4 FREE 2014 38840 T3 TOTAL 2014 60048 SYPHILLIS-STATE [facility] 10/12/2014 02245 HIV (STATE LAB) 10/12/2014 48057 ANTIBODY SCREEN (order) 10/12/2014 33725 HEP B SURFACE ANTIGEN (STATE) 10/12/2014 88286 GC/CHLAM URINE (STATE) 10/12/2014 91423 UA OB DIP 2014 17643 TEST, URINE (IN-HOUSE) 10/12/2014 70223 CBC 10/12/2014 16182 TSH 10/12/2014 [id number] ANTIBODY SCREEN (RESULT ONLY) 10/13/2014 25965 BLOOD TYPE/Rh FACTOR 10/13/2014 03136 CULTURE URINE 61465 RUBELLA ANTIBODY, IGG 10/14/2014 75.69 REPAIR OB LACERATION NEC 02/14/2015 Results Test Result Range Complete blood count (CBC) with automated white blood cell (WBC) differential - 11/13/16 20:31 Blood leukocytes automated count (number/volume) 11.0 10*3/ uL 4.3-11.0 Blood erythrocytes automated count (number/volume) 3.98 10*6 /uL 4.35-5.85 Venous blood hemoglobin measurement (mass/volume) 12.2 g/dL 11.5-16.0 Blood hematocrit (volume fraction) 36 % 35-52 Automated erythrocyte mean corpuscular volume 90 [foz_us] 80-99 Automated erythrocyte mean corpuscular hemoglobin (mass per erythrocyte) 31 pg 25-34 Automated erythrocyte mean corpuscular hemoglobin concentration measurement ( mass/volume) 34 g/dL 32-36 Automated erythrocyte distribution width ratio 13.0 % 10.0-14.5 Automated blood platelet count (count/volume) 312 10*3/uL 130-400 Automated blood platelet mean volume measurement 10.1 [foz_ us] 7.4-10.4 Automated blood neutrophils/100 leukocytes 59 % 42-75 Automated blood lymphocytes/100 leukocytes 31 % 12-44 Blood monocytes/100 leukocytes 8 % 0-12 Automated blood eosinophils/100 leukocytes 1 % 0-10 Automated blood basophils/100 leukocytes 0 % 0-10 Blood neutrophils automated count (number/volume) 6.5 10*3 1.8-7.8 Blood lymphocytes automated count (number/volume) 3.4 10*3 1.0-4.0 Blood monocytes automated count (number/volume) 0.9 10*3 0.0-1.0 Automated eosinophil count 0.1 10*3/uL 0.0-0.3 Automated blood basophil count (count/volume) 0.0 10*3/uL 0.0-0.1 Comprehensive metabolic panel - 11/13/16 20:31 Serum or plasma sodium measurement (moles/volume) 136 mmol/ L 135-145 Serum or plasma potassium measurement (moles/volume) 3.4 mmol/L 3.6-5.0 Serum or plasma chloride measurement (moles/volume) 106 mmol /L 98-107 Carbon dioxide 21 mmol/L 21-32 Serum or plasma anion gap determination (moles/volume) 9 mmol/L 5-14 Serum or plasma urea nitrogen measurement (mass/volume) 10 mg/dL 7-18 Serum or plasma creatinine measurement (mass/volume) 0.79 mg /dL 0.60-1.30 Serum or plasma urea nitrogen/creatinine mass ratio 13 NRG Serum or plasma creatinine measurement with calculation of estimated glomerular filtration rate > NRG Serum or plasma glucose measurement (mass/volume) 88 mg/dL 70-105 Serum or plasma calcium measurement (mass/volume) 9.2 mg/dL 8.5-10.1 Serum or plasma total bilirubin measurement (mass/volume) 0.4 mg/dL 0.1-1.0 Serum or plasma alkaline phosphatase measurement (enzymatic activity/volume) 74 U/L 40-136 Serum or plasma aspartate aminotransferase measurement (enzymatic activity/ volume) 22 U/L 5-34 Serum or plasma alanine aminotransferase measurement (enzymatic activity/volume ) 24 U/L 0-55 Serum or plasma protein measurement (mass/volume) 7.2 g/dL 6.4-8.2 Serum or plasma albumin measurement (mass/volume) 3.7 g/dL 3.2-4.5 Magnesium - 11/13/16 20:31 Magnesium 2.1 mg/dL 1.8-2.4 Fibrin D-dimer FEU measurement in platelet poor plasma (mass/volume) - 20:31 Fibrin D-dimer FEU measurement in platelet poor plasma (mass/volume) 0.46 ug/mL 0.00-0.49 THYROID STIMULATING HORMONE - 11/13/16 20:31 THYROID STIMULATING HORMONE 6.22 u[iU]/mL 0.35-4.94 Serum or plasma thyroxine (T4) free measurement (mass/volume) - 11/13/16 20:31 Serum or plasma thyroxine (T4) free measurement (mass/volume) 0.99 ng/dL 0.70-1.48 Serum or plasma troponin i.cardiac measurement (mass/volume) - 11/13/16 20:31 Serum or plasma troponin i.cardiac measurement (mass/volume) < ng/mL <0.30 Complete urinalysis with reflex to culture - 11/13/16 20:35 Urine color determination YELLOW NRG Urine clarity determination CLEAR NRG Urine pH measurement by test strip 8 5- 9 Specific gravity of urine by test strip 1.015 1.016-1.022 Urine protein assay by test strip, semi-quantitative NEGATIVE NEGATIVE Urine glucose detection by automated test strip NEGATIVE NEGATIVE Erythrocytes detection in urine sediment by light microscopy NEGATIVE NEGATIVE Urine ketones detection by automated test strip NEGATIVE NEGATIVE Urine nitrite detection by test strip NEGATIVE NEGATIVE Urine total bilirubin detection by test strip NEGATIVE NEGATIVE Urine urobilinogen measurement by automated test strip (mass/volume) NORMAL NORMAL Urine leukocyte esterase detection by dipstick 1+ NEGATIVE Automated urine sediment erythrocyte count by microscopy (number/high power field) NONE NRG Automated urine sediment leukocyte count by microscopy (number/high power field ) [HPF] NRG Bacteria detection in urine sediment by light microscopy NONE NRG Squamous epithelial cells detection in urine sediment by light microscopy 2-5 NRG Crystals detection in urine sediment by light microscopy PRESENT NRG Casts detection in urine sediment by light microscopy NONE NRG Mucus detection in urine sediment by light microscopy NEGATIVE NRG Complete urinalysis with reflex to culture NO NRG Amorphous sediment detection in urine sediment by light microscopy MOD DAVID PHOSPHATE NRG Urine drug screening test - 11/13/16 20:35 Urine phencyclidine detection by screening method NEGATIVE NEGATIVE Urine benzodiazepines detection by screening method NEGATIVE NEGATIVE Urine cocaine detection NEGATIVE NEGATIVE Urine amphetamines detection by screening method NEGATIVE NEGATIVE Urine methamphetamine detection by screening method NEGATIVE NEGATIVE Urine cannabinoids detection by screening method NEGATIVE NEGATIVE Urine opiates detection by screening method NEGATIVE NEGATIVE Urine barbiturates detection NEGATIVE NEGATIVE Screening urine tricyclic antidepressants detection NEGATIVE NEGATIVE Urine methadone detection by screening method NEGATIVE NEGATIVE Urine oxycodone detection NEGATIVE NEGATIVE Urine propoxyphene detection NEGATIVE NEGATIVE Complete urinalysis with reflex to culture - 11/20/16 20:20 Urine color determination YELLOW NRG Urine clarity determination SLIGHTLY CLOUDY NRG Urine pH measurement by test strip 6 5- 9 Specific gravity of urine by test strip 1.020 1.016-1.022 Urine protein assay by test strip, semi-quantitative NEGATIVE NEGATIVE Urine glucose detection by automated test strip NEGATIVE NEGATIVE Erythrocytes detection in urine sediment by light microscopy 1+ NEGATIVE Urine ketones detection by automated test strip 1+ NEGATIVE Urine nitrite detection by test strip NEGATIVE NEGATIVE Urine total bilirubin detection by test strip NEGATIVE NEGATIVE Urine urobilinogen measurement by automated test strip (mass/volume) 1 mg/dL NORMAL Urine leukocyte esterase detection by dipstick 1+ NEGATIVE Automated urine sediment erythrocyte count by microscopy (number/high power field) [HPF] NRG Automated urine sediment leukocyte count by microscopy (number/high power field ) [HPF] NRG Bacteria detection in urine sediment by light microscopy FEW NRG Crystals detection in urine sediment by light microscopy NONE NRG Casts detection in urine sediment by light microscopy NONE NRG Mucus detection in urine sediment by light microscopy MODERATE NRG Complete urinalysis with reflex to culture NO NRG Complete urinalysis with reflex to culture - 12/06/16 09:25 Urine color determination YELLOW NRG Urine clarity determination SLIGHTLY CLOUDY NRG Urine pH measurement by test strip 7 5- 9 Specific gravity of urine by test strip 1.015 1.016-1.022 Urine protein assay by test strip, semi-quantitative NEGATIVE NEGATIVE Urine glucose detection by automated test strip NEGATIVE NEGATIVE Erythrocytes detection in urine sediment by light microscopy NEGATIVE NEGATIVE Urine ketones detection by automated test strip NEGATIVE NEGATIVE Urine nitrite detection by test strip NEGATIVE NEGATIVE Urine total bilirubin detection by test strip NEGATIVE NEGATIVE Urine urobilinogen measurement by automated test strip (mass/volume) NORMAL NORMAL Urine leukocyte esterase detection by dipstick 2+ NEGATIVE Automated urine sediment erythrocyte count by microscopy (number/high power field) RARE NRG Automated urine sediment leukocyte count by microscopy (number/high power field ) [HPF] NRG Bacteria detection in urine sediment by light microscopy FEW NRG Squamous epithelial cells detection in urine sediment by light microscopy 10-25 NRG Crystals detection in urine sediment by light microscopy NONE NRG Casts detection in urine sediment by light microscopy NONE NRG Mucus detection in urine sediment by light microscopy NEGATIVE NRG Complete urinalysis with reflex to culture YES NRG Bacterial urine culture - 12/06/16 09:25 URINE CULTURE RESULTS 10,000/ML - 100,000/ML NRG Complete urinalysis with reflex to culture - 12/20/16 14:05 Urine color determination YELLOW NRG Urine clarity determination CLEAR NRG Urine pH measurement by test strip 8 5- 9 Specific gravity of urine by test strip 1.015 1.016-1.022 Urine protein assay by test strip, semi-quantitative NEGATIVE NEGATIVE Urine glucose detection by automated test strip NEGATIVE NEGATIVE Erythrocytes detection in urine sediment by light microscopy NEGATIVE NEGATIVE Urine ketones detection by automated test strip NEGATIVE NEGATIVE Urine nitrite detection by test strip NEGATIVE NEGATIVE Urine total bilirubin detection by test strip NEGATIVE NEGATIVE Urine urobilinogen measurement by automated test strip (mass/volume) NORMAL NORMAL Urine leukocyte esterase detection by dipstick 1+ NEGATIVE Automated urine sediment erythrocyte count by microscopy (number/high power field) RARE NRG Automated urine sediment leukocyte count by microscopy (number/high power field ) [HPF] NRG Bacteria detection in urine sediment by light microscopy FEW NRG Squamous epithelial cells detection in urine sediment by light microscopy 5-10 NRG Crystals detection in urine sediment by light microscopy NONE NRG Casts detection in urine sediment by light microscopy NONE NRG Mucus detection in urine sediment by light microscopy NEGATIVE NRG Complete urinalysis with reflex to culture NO NRG Amorphous sediment detection in urine sediment by light microscopy FEW DAVID PHOSPHATE NRG Complete urinalysis with reflex to culture - 12/22/16 04:40 Urine color determination YELLOW NRG Urine clarity determination CLEAR NRG Urine pH measurement by test strip 7 5- 9 Specific gravity of urine by test strip 1.010 1.016-1.022 Urine protein assay by test strip, semi-quantitative NEGATIVE NEGATIVE Urine glucose detection by automated test strip NEGATIVE NEGATIVE Erythrocytes detection in urine sediment by light microscopy NEGATIVE NEGATIVE Urine ketones detection by automated test strip NEGATIVE NEGATIVE Urine nitrite detection by test strip NEGATIVE NEGATIVE Urine total bilirubin detection by test strip NEGATIVE NEGATIVE Urine urobilinogen measurement by automated test strip (mass/volume) NORMAL NORMAL Urine leukocyte esterase detection by dipstick NEGATIVE NEGATIVE Automated urine sediment erythrocyte count by microscopy (number/high power field) NONE NRG Automated urine sediment leukocyte count by microscopy (number/high power field ) NONE NRG Bacteria detection in urine sediment by light microscopy TRACE NRG Squamous epithelial cells detection in urine sediment by light microscopy 10-25 NRG Crystals detection in urine sediment by light microscopy NONE NRG Casts detection in urine sediment by light microscopy NONE NRG Mucus detection in urine sediment by light microscopy NEGATIVE NRG Complete urinalysis with reflex to culture NO NRG Complete blood count (CBC) with automated white blood cell (WBC) differential - 12/22/16 05:25 Blood leukocytes automated count (number/volume) 8.9 10*3/ uL 4.3-11.0 Blood erythrocytes automated count (number/volume) 3.66 10*6 /uL 4.35-5.85 Venous blood hemoglobin measurement (mass/volume) 11.0 g/dL 11.5-16.0 Blood hematocrit (volume fraction) 33 % 35-52 Automated erythrocyte mean corpuscular volume 90 [foz_us] 80-99 Automated erythrocyte mean corpuscular hemoglobin (mass per erythrocyte) 30 pg 25-34 Automated erythrocyte mean corpuscular hemoglobin concentration measurement ( mass/volume) 33 g/dL 32-36 Automated erythrocyte distribution width ratio 12.2 % 10.0-14.5 Automated blood platelet count (count/volume) 265 10*3/uL 130-400 Automated blood platelet mean volume measurement 10.9 [foz_ us] 7.4-10.4 Automated blood neutrophils/100 leukocytes 60 % 42-75 Automated blood lymphocytes/100 leukocytes 30 % 12-44 Blood monocytes/100 leukocytes 7 % 0-12 Automated blood eosinophils/100 leukocytes 2 % 0-10 Automated blood basophils/100 leukocytes 0 % 0-10 Blood neutrophils automated count (number/volume) 5.4 10*3 1.8-7.8 Blood lymphocytes automated count (number/volume) 2.7 10*3 1.0-4.0 Blood monocytes automated count (number/volume) 0.6 10*3 0.0-1.0 Automated eosinophil count 0.2 10*3/uL 0.0-0.3 Automated blood basophil count (count/volume) 0.0 10*3/uL 0.0-0.1 [id number] - 12/22/16 05:25 [id number] SPECIMEN AVAILABLE NRG Complete urinalysis with reflex to culture - 01/10/17 15:45 Urine color determination YELLOW NRG Urine clarity determination SLIGHTLY CLOUDY NRG Urine pH measurement by test strip 6 5- 9 Specific gravity of urine by test strip 1.020 1.016-1.022 Urine protein assay by test strip, semi-quantitative 2+ NEGATIVE Urine glucose detection by automated test strip NEGATIVE NEGATIVE Erythrocytes detection in urine sediment by light microscopy 1+ NEGATIVE Urine ketones detection by automated test strip 1+ NEGATIVE Urine nitrite detection by test strip NEGATIVE NEGATIVE Urine total bilirubin detection by test strip 1+ NEGATIVE Urine urobilinogen measurement by automated test strip (mass/volume) 4 mg/dL NORMAL Urine leukocyte esterase detection by dipstick 3+ NEGATIVE Automated urine sediment erythrocyte count by microscopy (number/high power field) RARE NRG Automated urine sediment leukocyte count by microscopy (number/high power field ) [HPF] NRG Bacteria detection in urine sediment by light microscopy MODERATE NRG Squamous epithelial cells detection in urine sediment by light microscopy 10-25 NRG Crystals detection in urine sediment by light microscopy NONE NRG Casts detection in urine sediment by light microscopy NONE NRG Mucus detection in urine sediment by light microscopy SMALL NRG Complete urinalysis with reflex to culture YES NRG Bacterial urine culture - 01/10/17 15:45 URINE CULTURE RESULTS <10,000/ML NRG Complete blood count (CBC) with automated white blood cell (WBC) differential - 01/10/17 16:20 Blood leukocytes automated count (number/volume) 9.3 10*3/ uL 4.3-11.0 Blood erythrocytes automated count (number/volume) 4.10 10*6 /uL 4.35-5.85 Venous blood hemoglobin measurement (mass/volume) 12.0 g/dL 11.5-16.0 Blood hematocrit (volume fraction) 36 % 35-52 Automated erythrocyte mean corpuscular volume 89 [foz_us] 80-99 Automated erythrocyte mean corpuscular hemoglobin (mass per erythrocyte) 29 pg 25-34 Automated erythrocyte mean corpuscular hemoglobin concentration measurement ( mass/volume) 33 g/dL 32-36 Automated erythrocyte distribution width ratio 12.7 % 10.0-14.5 Automated blood platelet count (count/volume) 279 10*3/uL 130-400 Automated blood platelet mean volume measurement 11.6 [[facility]_ [place]] 7.4-10.4 Automated blood neutrophils/100 leukocytes 75 % 42-75 Automated blood lymphocytes/100 leukocytes 20 % 12-44 Blood monocytes/100 leukocytes 5 % 0-12 Automated blood eosinophils/100 leukocytes 1 % 0-10 Automated blood basophils/100 leukocytes 0 % 0-10 Blood neutrophils automated count (number/volume) 6.9 10*3 1.8-7.8 Blood lymphocytes automated count (number/volume) 1.8 10*3 1.0-4.0 Blood monocytes automated count (number/volume) 0.5 10*3 0.0-1.0 Automated eosinophil count 0.1 10*3/uL 0.0-0.3 Automated blood basophil count (count/volume) 0.0 10*3/uL 0.0-0.1 PT panel in platelet poor plasma by coagulation assay - 01/10/17 16:20 Prothrombin time (PT) in platelet poor plasma by coagulation assay 11.4 s 12.2-14.7 INR in platelet poor plasma or blood by coagulation assay 0.9 0.8-1.4 Comprehensive metabolic panel - 01/10/17 16:20 Serum or plasma sodium measurement (moles/volume) 136 mmol/ L 135-145 Serum or plasma potassium measurement (moles/volume) 3.8 mmol/L 3.6-5.0 Serum or plasma chloride measurement (moles/volume) 107 mmol /L 98-107 Carbon dioxide 19 mmol/L 21-32 Serum or plasma anion gap determination (moles/volume) 10 mmol/L 5-14 Serum or plasma urea nitrogen measurement (mass/volume) 15 mg/dL 7-18 Serum or plasma creatinine measurement (mass/volume) 0.75 mg /dL 0.60-1.30 Serum or plasma urea nitrogen/creatinine mass ratio 20 0-20 Serum or plasma creatinine measurement with calculation of estimated glomerular filtration rate > NRG Serum or plasma glucose measurement (mass/volume) 98 mg/dL 70-105 Serum or plasma calcium measurement (mass/volume) 9.2 mg/dL 8.5-10.1 Serum or plasma total bilirubin measurement (mass/volume) 1.0 mg/dL 0.1-1.0 Serum or plasma alkaline phosphatase measurement (enzymatic activity/volume) 206 U/L 40-136 Serum or plasma aspartate aminotransferase measurement (enzymatic activity/ volume) 510 U/L 5-34 Serum or plasma alanine aminotransferase measurement (enzymatic activity/volume ) 724 U/L 0-55 Serum or plasma protein measurement (mass/volume) 7.6 g/dL 6.4-8.2 Serum or plasma albumin measurement (mass/volume) 3.5 g/dL 3.2-4.5 Serum or plasma uric acid measurement (mass/volume) - 01/10/17 16:20 Serum or plasma uric acid measurement (mass/volume) 5.9 mg/ dL 2.6-7.2 Lactate dehydrogenase 1 [enzymatic activity/volume] in serum or plasma - 16:20 Lactate dehydrogenase 1 [enzymatic activity/volume] in serum or plasma 413 U/L 125-220 Encounters ACCT No. Visit Date/Time Discharge Status Pt. Type Provider Facility Loc./Unit Complaint [id number] 10/12/2014 13:34:00 10/12/2014 23: 59:59 [facility] Outpatient JARRELL PEOPLES DO [id number] 07/20/2014 14:55:00 07/20/2014 23: 59:59 [facility] Outpatient JARRELL PEOPLES DO [id number] 04/13/2014 13:24:00 04/13/2014 23: 59:59 [facility] Outpatient JARRELL PEOPLES DO [id number] 04/12/2014 09:23:00 04/12/2014 23: 59:59 [facility] Outpatient JARRELL PEOPLES DO [id number] 02/07/2014 15:23:00 02/07/2014 23: 59:59 [facility] Outpatient SHIRA MENDOZA APRN
== END 2017-01-10 20:17 | disposition home or self-care (01) ==
LOC: LDRP 15:22
PROVIDERS: ADMIT Family Medicine; ATTEND Family Medicine
DX: O99.613 Diseases of the digestive system complicating pregnancy, third trimester (principal); K83.1 Obstruction of bile duct; R74.8 Abnormal levels of other serum enzymes; R10.11 Right upper quadrant pain; Z3A.34 34 weeks gestation of pregnancy
CPT/HCPCS: 36415; 80053; 81000; 82977; 83615; 84550; 85025; 85610; 87088; 96372; 99212

== ENCOUNTER → 2017-07-25 | Outpatient (CLI) | payer MEDICAID ==
--- NOTE | 2017-07-25 15:22 | Diagnostic Imaging Report ---
INDICATION: Right upper quadrant abdominal pain TECHNIQUE: Multiple grayscale sonographic images were obtained of the right upper quadrant of the abdomen. CORRELATION STUDY: None FINDINGS: LIVER: There is uniform echotexture within the visualized portions of the liver. Liver length is 16.5 cm. GALLBLADDER: The gallbladder demonstrates no definitive shadowing gallstones. No abnormal gallbladder wall thickening or pericholecystic fluid. COMMON BILE DUCT: Nondilated at millimeters. PANCREAS: Visualized portions appearing unremarkable. RIGHT KIDNEY: Measures 10.1 cm. No hydronephrosis. OTHER: None. IMPRESSION: 1. Negative appearing right upper quadrant abdominal ultrasound. Dictated by: Dictated on workstation # [id number]
== END ==
LOC: RAD 14:54
PROVIDERS: ATTEND Physician Assistant
DX: R10.821 Right upper quadrant rebound abdominal tenderness (principal)
CPT/HCPCS: 76705

== ENCOUNTER 2018-10-24 12:16 | Emergency (ER) | payer MEDICAID ==
[~2018-10-24] VITALS: Ht 162.6 cm; Wt 57.2 kg
--- NOTE | 2018-10-24 12:28 | ED GI ---
General Stated Complaint: UPPER RIGHT ABD PAIN Source of Information: Patient Exam Limitations: No Limitations History of Present Illness Date Seen by Provider: Oct 24, 2018 Time Seen by Provider: 12:26 Initial Comments To ER complaint by significant other with reports of right upper quadrant abdominal pain since last night. She's had this intermittently for the past 2-3 days. She's had some associated nausea. She is 31 weeks gestation, Ab2. She states that she had cholestasis with her last but the gallbladder was never removed. Primary care Dr. Cui from [facility]. She's had nothing to eat this morning Timing/Duration: 1-2 Days Severity/Quality: Moderate Location: RUQ Radiation: No Radiation Activities at Onset: None Associated Symptoms: Nausea/Vomiting Allergies and Home Medications Allergies Coded Allergies: Penicillins (Verified Allergy, Intermediate, HIVES, 01/15/15) Home Medications Hydrocodone/Acetaminophen 1 Each Tablet, 1 EACH PO Q6H PRN for PAIN-MODERATE Prescribed by: SUYAPA MISTRY on 10/24/18 1302 Levothyroxine Sodium 50 Mcg Tablet, 50 MCG PO DAILY, (Reported) Ondansetron 8 Mg Tab.rapdis, 8 MG PO Q6H PRN for NAUSEA/VOMITING Prescribed by: SUYAPA MISTRY on 10/24/18 1302 Vit/Fe Fumarate/Fa 1 Each Tablet, 1 TAB PO DAILY, (Reported) Ursodiol 300 Mg Capsule, 300 MG PO BID Prescribed by: SUYAPA MISTRY on 10/24/18 1323 Patient Home Medication List Home Medication List Reviewed: Yes Review of Systems Review of Systems Constitutional: see HPI EENTM: No Symptoms Reported Respiratory: No Symptoms Reported Cardiovascular: No Symptoms Reported Gastrointestinal: See HPI, Abdominal Pain; Denies Diarrhea; Nausea; Denies Vomiting Genitourinary: No Symptoms Reported Musculoskeletal: no symptoms reported Skin: no symptoms reported Psychiatric/Neurological: No Symptoms Reported Endocrine: No Symptoms Reported Hematologic/Lymphatic: No Symptoms Reported Past Klkgghy-Nbufrd-Qmtaum Hx Patient Social History Type Used: Cigarettes Former Smoker, Quit: Aug 20, 2016 Recent Foreign Travel: No Contact w/Someone Who Travel: No Recent Hopitalizations: No Immunizations Up To Date Tetanus Booster (TDap): Unknown PED Vaccines UTD: Yes Date of Influenza Vaccine: Jun 20, 2014 Seasonal Allergies Seasonal Allergies: Yes Past Medical History Surgeries: No Respiratory: Yes (childhood asthma) Asthma Cardiac: Yes Hypotension Neurological: No Reproductive Disorders: No Female Reproductive Disorders: Denies Sexually Transmitted Disease: No HIV/AIDS: No Gastrointestinal: No Musculoskeletal: No Endocrine: Yes Hypothyroidsim Cancer: No Psychosocial: Yes Anxiety Integumentary: No Family Medical History Hypertension 19 FATHER Heart Disease, Hypertension Physical Exam Vital Signs Vital Signs - First Documented 10/24/18 12:21 Temp 98.0 Pulse 113 Resp 18 B/P (MAP) 119/63 (81) Pulse Ox 100 O2 Delivery Room Air Capillary Refill : Height/Weight/BMI Height: 5'4.00" Weight: 126lbs. 0.6oz. 57.165508yu; 21.6 BMI Method:Stated General Appearance: WD/WN, no apparent distress HEENT: PERRL/EOMI, normal ENT inspection Neck: non-tender, full range of motion Respiratory: no respiratory distress, no accessory muscle use Gastrointestinal: normal bowel sounds, soft, tenderness (right upper) Extremities: normal range of motion, non-tender Neurologic/Psychiatric: alert, normal mood/affect, oriented x 3 Skin: normal color, warm/dry Progress/Results/Core Measures Results/Orders Lab Results Laboratory Tests Test 10/24/18 12:30 10/24/18 13:00 Range/Units White Blood Count 6.3 4.3-11.0 10^3/uL Red Blood Count 3.48 L 4.35-5.85 10^6/uL Hemoglobin 9.9 L 11.5-16.0 G/DL Hematocrit 31 L 35-52 % Mean Corpuscular Volume 88 80-99 FL Mean Corpuscular Hemoglobin 28 25-34 PG Mean Corpuscular Hemoglobin Concent 32 32-36 G/DL Red Cell Distribution Width 14.1 10.0-14.5 % Platelet Count 361 130-400 10^3/uL Mean Platelet Volume 9.8 7.4-10.4 FL Neutrophils (%) (Auto) 77 H 42-75 % Lymphocytes (%) (Auto) 17 12-44 % Monocytes (%) (Auto) 6 0-12 % Eosinophils (%) (Auto) 1 0-10 % Basophils (%) (Auto) 0 0-10 % Neutrophils # (Auto) 4.9 1.8-7.8 X 10^3 Lymphocytes # (Auto) 1.0 1.0-4.0 X 10^3 Monocytes # (Auto) 0.4 0.0-1.0 X 10^3 Eosinophils # (Auto) 0.0 0.0-0.3 10^3/uL Basophils # (Auto) 0.0 0.0-0.1 10^3/uL Sodium Level 137 135-145 MMOL/L Potassium Level 3.4 L 3.6-5.0 MMOL/L Chloride Level 107 98-107 MMOL/L Carbon Dioxide Level 20 L 21-32 MMOL/L Anion Gap 10 5-14 MMOL/L Blood Urea Nitrogen 8 7-18 MG/DL Creatinine 0.77 0.60-1.30 MG/DL Estimat Glomerular Filtration Rate > 60 BUN/Creatinine Ratio 10 Glucose Level 91 70-105 MG/DL Calcium Level 9.1 8.5-10.1 MG/DL Corrected Calcium 9.4 8.5-10.1 MG/DL Total Bilirubin 0.3 0.1-1.0 MG/DL Aspartate Amino Transf (AST/SGOT) 46 H 5-34 U/L Alanine Aminotransferase (ALT/SGPT) 90 H 0-55 U/L Alkaline Phosphatase 164 H 40-136 U/L Total Protein 7.6 6.4-8.2 GM/DL Albumin 3.6 3.2-4.5 GM/DL Lipase 10 8-78 U/L Urine Color YELLOW Urine Clarity SLIGHTLY CLOUDY Urine pH 6.5 5-9 Urine Specific [place] 1.010 L 1.016-1.022 Urine Protein NEGATIVE NEGATIVE Urine Glucose (UA) NEGATIVE NEGATIVE Urine Ketones NEGATIVE NEGATIVE Urine Nitrite NEGATIVE NEGATIVE Urine Bilirubin NEGATIVE NEGATIVE Urine Urobilinogen NORMAL NORMAL MG/DL Urine Leukocyte Esterase 2+ H NEGATIVE Urine RBC (Auto) NEGATIVE NEGATIVE Urine RBC NONE /HPF Urine WBC 2-5 /HPF Urine Squamous Epithelial Cells 5-10 /HPF Urine Crystals NONE /LPF Urine Bacteria FEW H /HPF Urine Casts NONE /LPF Urine Mucus NEGATIVE /LPF Urine Culture Indicated NO My Orders Orders - SUYAPA MISTRY APRN Cbc With Automated Diff (10/24/18 12:20) Comprehensive Metabolic Panel (10/24/18 12:20) Lipase (10/24/18 12:20) Ua Culture If Indicated (10/24/18 12:20) Iv Heplock-Insert (Order) (10/24/18 12:20) Heart Tones (10/24/18 12:20) Us Gallbladder [id number] (10/24/18 12:20) Fentanyl Injection (Sublimaze Injection (10/24/18 12:30) Ondansetron Injection (Zofran Injectio (10/24/18 12:30) Ns Iv 1000 Ml (Sodium Chloride 0.9%) (10/24/18 12:30) Medications Given in ED Current Medications Medications Dose Ordered Sig/John Route Start Time Stop Time Status Last Admin Dose Admin Fentanyl Citrate 25 mcg ONCE PRN IVP 10/24/18 12:30 10/24/18 12:43 25 MCG Ondansetron HCl 4 mg ONCE ONCE IVP 10/24/18 12:30 10/24/18 12:31 DC 10/24/18 12:41 4 MG Vital Signs/I&O 10/24/18 12:21 Temp 98.0 Pulse 113 Resp 18 B/P (MAP) 119/63 (81) Pulse Ox 100 O2 Delivery Room Air Departure Communication (Admissions) She was transferred to [place] during her last for severe cholestasis. I discussed the case with Dr. Cui. She will see the patient in the [facility] on Friday at 2 PM. Impression Primary Impression: Cholestasis during Qualified Codes: O26.619 - Liver and biliary tract disorders in , unspecified trimester; K83.1 - Obstruction of bile duct Additional Impression: RUQ abdominal pain Disposition: HOME, SELF-CARE Condition: Stable Departure-Patient Inst. Decision time for Depature: 13:01 Referrals: [facility] (PCP/Family) Primary Care Physician Patient Instructions: Acute Abdomen (Belly Pain), Adult (DC) Add. Discharge Instructions: 1 low-fat bland diet until you follow up with her regular doctor. Return to ER for any concerns. Scripts Ursodiol (Ursodiol) 300 Mg Capsule 300 MG PO BID, #30 CAP Prov: SUYAPA MISTRY APRN 10/24/18 Ondansetron (Ondansetron Odt) 8 Mg Tab.rapdis 8 MG PO Q6H PRN for NAUSEA/VOMITING, #10 TAB Prov: SUYAPA MISTRY APRN 10/24/18 Hydrocodone/Acetaminophen ([place] 5-325 Tablet) 1 Each Tablet 1 EACH PO Q6H PRN for PAIN-MODERATE MDD 10, #5 TAB Prov: SUYAPA MISTRY APRN 10/24/18 Work/School Note: Work Release Form Date Seen in the Emergency Department: Oct 24, 2018 Return to Work: Oct 25, 2018 Copy Copies To 1: ROMERO CUI MD, PETER J APRN Oct 24, 2018 12:27
[2018-10-24] MEDS ORDERED: ONDANSETRON 4 MG/2 ML (SDV) Z0FRAN IVP ONE (12:30)
[2018-10-24] MEDS ORDERED: fentaNYL INJECTION 100 MCG/2 ML AMP IVP PRN (12:30)
[2018-10-24] MEDS ORDERED: NS IV 1000 ML 1,000 ML IV SCH (12:30)
[2018-10-24 12:57] LABS: BASOPHILS % (AUTO) 0 % (0-10); EOSINOPHILS % (AUTO) 1 % (0-10); HEMATOCRIT 31 % (35-52); HEMOGLOBIN 9.9 G/DL (11.5-16.0); LYMPHOCYTES % (AUTO) 17 % (12-44); MEAN CORPUSCULAR HEMOGLOBIN 28 PG (25-34); MEAN CORPUSCULAR HGB CONC 32 G/DL (32-36); MEAN CORPUSCULAR VOLUME 88 FL (80-99); MEAN PLATELET VOLUME 9.8 FL (7.4-10.4); MONOCYTES # (AUTO) 0.4 X 10^3 (0.0-1.0); MONOCYTES % (AUTO) 6 % (0-12); NEUTROPHILS # (AUTO) 4.9 X 10^3 (1.8-7.8); NEUTROPHILS % (AUTO) 77 % (42-75); PLATELET COUNT 361 10^3/uL (130-400); RED CELL DISTRIBUTION WIDTH 14.1 % (10.0-14.5); WHITE BLOOD COUNT 6.3 10^3/uL (4.3-11.0)
[2018-10-24] MEDS ORDERED: HYDR-4226 PO (13:02)
[2018-10-24] MEDS ORDERED: ONDA8TAB13 PO ×2 (13:02→13:35)
--- NOTE | 2018-10-24 13:03 | NUR ---
BACK FROM [facility]
[2018-10-24 13:05] LABS: ALANINE AMINOTRANSFERASE 90 U/L (0-55); ALBUMIN 3.6 GM/DL (3.2-4.5); ALKALINE PHOSPHATASE 164 U/L (40-136); BILIRUBIN,TOTAL 0.3 MG/DL (0.1-1.0); BUN/CREATININE RATIO 10; CALCIUM 9.1 MG/DL (8.5-10.1); CARBON DIOXIDE 20 MMOL/L (21-32); CHLORIDE 107 MMOL/L (98-107); CREATININE SERUM 0.77 MG/DL (0.60-1.30); GFR ESTIMATED > 60; GLUCOSE 91 MG/DL (70-105); LIPASE 10 U/L (8-78); POTASSIUM 3.4 MMOL/L (3.6-5.0); SODIUM 137 MMOL/L (135-145); TOTAL PROTEIN 7.6 GM/DL (6.4-8.2)
[2018-10-24 13:07] LABS: BILIRUBIN,URINE NEGATIVE (NEGATIVE); CLARITY,URINE SLIGHTLY CLOUDY; COLOR,URINE YELLOW; GLUCOSE, URINE (UA) NEGATIVE (NEGATIVE); KETONES,URINE NEGATIVE (NEGATIVE); LEUKOCYTE ESTERASE ,URINE 2+ (NEGATIVE); NITRITE,URINE NEGATIVE (NEGATIVE); PH,URINE 6.5 (5-9); PROTEIN,URINE NEGATIVE (NEGATIVE); UROBILINOGEN,URINE NORMAL (NORMAL)
[2018-10-24 13:14] LABS: BACTERIA,URINE FEW /HPF
--- NOTE | 2018-10-24 13:14 | Diagnostic Imaging Report ---
PROCEDURE: US Gallbladder. TECHNIQUE: Multiple real-time grayscale images were obtained over the right upper quadrant in various projections. INDICATION: Right upper quadrant pain. FINDINGS: The liver is normal in size without focal lesions. There is no intrahepatic biliary ductal dilatation. Common bile duct is however obscured by bowel gas. There is no cholelithiasis, gallbladder wall thickening, or pericholecystic fluid. Pancreas is not well seen due to bowel gas. Right kidney is normal. There is no ascites. IMPRESSION: Unremarkable right upper quadrant ultrasound apart from obscuration of the common bile duct and pancreas due to bowel gas. Specifically, the gallbladder is normal in appearance. Dictated by: Dictated on workstation # [id number]
[2018-10-24] MEDS ORDERED: URSO300C3 PO ×2 (13:23→13:36)
[2018-10-24 13:32] VITALS: BP 96/54
== END 2018-10-24 13:32 | disposition home or self-care (01) ==
LOC: EDUNIT# 12:16 → ER 12:19
DX: O26.613 Liver and biliary tract disorders in pregnancy, third trimester (principal); K83.1 Obstruction of bile duct; O99.513 Diseases of the respiratory system complicating pregnancy, third trimester; J45.909 Unspecified asthma, uncomplicated; O99.283 Endocrine, nutritional and metabolic diseases complicating pregnancy, third trimester; E03.9 Hypothyroidism, unspecified; O99.343 Other mental disorders complicating pregnancy, third trimester; F41.9 Anxiety disorder, unspecified; Z82.49 Family history of ischemic heart disease and other diseases of the circulatory system; Z3A.31 31 weeks gestation of pregnancy; Z88.0 Allergy status to penicillin; Z87.891 Personal history of nicotine dependence
CPT/HCPCS: 36415; 76705; 80053; 81000; 83690; 85025; 96374; 96375

== ENCOUNTER 2018-10-29 16:52 | Outpatient (CLI) | payer MEDICAID ==
[~2018-10-29] VITALS: Ht 162.6 cm; Wt 60.6 kg
--- NOTE | 2018-10-29 16:40 | NUR ---
BAUTISTA BUTLER presented to unit via wheelchair from ED, accompanied by so, with c/o NUMBNESS down right side. BAUTISTA BUTLER weighed and to bed. EFHM and TOCO applied, VS taken. BAUTISTA BUTLER oriented to bed controls, call light, TV, heat, and A/C controls.
[2018-10-29 16:50] VITALS: BP 105/54
--- NOTE | 2018-10-29 16:50 | NUR ---
PT STATES SHE IS DUE 12/27/18, MAKING HER 31.4WK TODAY. INITIATED CARE WITH DR ALBARADO, WHO REFERRED HER TO DR LARES. TODAY: PT CO NUMBNESS ON RIGHT SIDE. CO NUMBNESS PRIMARILY IN R ARM, CHIN, AND TONGUE. PT STATES SHE FEELS "OFF", SOMEWHAT DIZZY ALMOST LIKE SHE COULD PASSOUT. NO FACIAL DROOP, NO RIGHT SIDED OR FACIAL WEAKNESS NOTED BY THIS RN. SMILE SYMMETRICAL. NO SLURRING OF SPEECH NOTED. PT STATES ABD TENDER TO TOUCH. NUMBNESS STARTED ABOUT 1 HR AGO PT STATES, 3:[address] TO ER, PT FELT TIGHTENING IN ABDOMEN. ER STAFF SENT HER TO OB TO BE EVALUATED. PT STATES SHE HAS A HX OF 1 VAGINAL DELIVERY AND 1 . LAST DELIVERY WAS VIA . EMERGENT CS ACCORDING TO PT AND SO DUE TO CHOLESTASIS AND PREECLAMPSIA. PT STATES SHE HAS BEEN HAVING ISSUES WITH HER GALLBLADDER- WAS AT [facility] ABOUT 1 MO AGO AND [facility] ON FRIDAY WITH ELEVATED LIVER ENZYMES. THIS RN IS WAITING FOR DR LARES TO FINISH ROUNDING ON PP FLOOR TO GIVE REPORT AND RECEIVE ORDERS FOR PT AT THIS TIME ([id number]). PT STATES SHE IS CURRENTLY TAKING LEVOTHYROXINE FOR HYPOTHYROID, "SOMETHING FOR CHOLESTASIS", AND "SOMETHING FOR NAUSEA"
[~2018-10-29 16:52] MED LIST changes: +HYDR-4226 PO; +ONDA8TAB13 PO; +URSO300C3 PO
--- NOTE | 2018-10-29 17:18 | NUR ---
THIS RN GIVES COMPLETE PT REPORT TO DR LARES AT THIS TIME. ORDERS RECEIVED FOR CBC, CMP, BETAMETHASONE ADMIN.
--- NOTE | 2018-10-29 17:35 | NUR ---
DOCTOR NATUROPATHIC AT BEDSIDE FOR LAB DRAW. PT UPDATED ON PLAN OF CARE. REVIEWED FHT STRIP WITH PT AND SO WITH EXPLANATION. QUESTIONS ANSWERED. CALL LIGHT WITHIN REACH.
[2018-10-29] MEDS ORDERED: BETAMETHASONE ACE/NA PHOS 6 MG/ML (CELESTONE SOLUSPAN) ONE (17:39)
[2018-10-29 17:40] VITALS: BP 96/52
[2018-10-29 17:44] LABS: BASOPHILS % (AUTO) 0 % (0-10); EOSINOPHILS # (AUTO) 0.1 10^3/uL (0.0-0.3); EOSINOPHILS % (AUTO) 1 % (0-10); HEMATOCRIT 28 % (35-52); LYMPHOCYTES # (AUTO) 1.1 X 10^3 (1.0-4.0); LYMPHOCYTES % (AUTO) 16 % (12-44); MEAN CORPUSCULAR HGB CONC 32 G/DL (32-36); MEAN CORPUSCULAR VOLUME 88 FL (80-99); MEAN PLATELET VOLUME 9.8 FL (7.4-10.4); MONOCYTES # (AUTO) 0.5 X 10^3 (0.0-1.0); MONOCYTES % (AUTO) 7 % (0-12); NEUTROPHILS # (AUTO) 5.6 X 10^3 (1.8-7.8); NEUTROPHILS % (AUTO) 77 % (42-75); PLATELET COUNT 347 10^3/uL (130-400); RED CELL DISTRIBUTION WIDTH 14.1 % (10.0-14.5); WHITE BLOOD COUNT 7.3 10^3/uL (4.3-11.0)
[2018-10-29 17:50] LABS: MEAN CORPUSCULAR HEMOGLOBIN 28 PG (25-34)
[2018-10-29 17:55] VITALS: BP 103/57
[2018-10-29 18:05] LABS: ALANINE AMINOTRANSFERASE 29 U/L (0-55); ALBUMIN 3.2 GM/DL (3.2-4.5); ALKALINE PHOSPHATASE 139 U/L (40-136); BILIRUBIN,TOTAL 0.3 MG/DL (0.1-1.0); BUN/CREATININE RATIO 9; CALCIUM 8.8 MG/DL (8.5-10.1); CARBON DIOXIDE 24 MMOL/L (21-32); CHLORIDE 107 MMOL/L (98-107); CREATININE SERUM 0.82 MG/DL (0.60-1.30); GFR ESTIMATED > 60; GLUCOSE 100 MG/DL (70-105); POTASSIUM 3.7 MMOL/L (3.6-5.0); SODIUM 136 MMOL/L (135-145); TOTAL PROTEIN 6.8 GM/DL (6.4-8.2)
[2018-10-29 18:10] VITALS: BP 101/58
[2018-10-29 18:25] VITALS: BP 99/56
--- NOTE | 2018-10-29 18:40 | NUR ---
DR LARES CALLED BY THIS RN WITH UPDATED PT REPORT. LABS SENT TO FOR REVIEW. DR LARES STATES THAT PER LABS IT LOOKS LIKE PT IS ANEMIC. DR WANTS PT TO START TAKING FERROUS SULFATE 325MG BID OTC, WANTS PT TO HYDRATE WELL, PUSH PO FLUIDS. PT HAS US SCHEDULED FOR TOMORROW AM. PT WILL ALSO RETURN TO LD FOR 2ND DOSE OF BETAMETHASONE ADMIN AROUND 5:30PM ON 10/30/18. DR LARES WILL GET RX TO LD TOMORROW AM WHEN HERE FOR HIS SURGERY. ORDERS TO DC TO HOME AT THIS TIME.
--- NOTE | 2018-10-30 13:18 | Physician Query-Final Dx ---
DEANA TIJERINA 10/30/18 1318: Clinic Account Progress/Dx Physician Query: Please give diagnosis Date of Service Oct 29, 2018 at 16:52 HIRAM LARES DO 10/31/18 1216: Clinic Account Progress/Dx DIAGNOSIS: Diagnosis Cholestasis of 30 week iup Lethargy DEANA TIJERINA Oct 30, 2018 13:18 HIRAM LARES DO Oct 31, 2018 12:16
[2018-10-30] MEDS ORDERED: BETAMETHASONE ACE/NA PHOS 6 MG/ML (CELESTONE SOLUSPAN) IM SCH (17:30)
== END 2018-10-29 18:58 | disposition home or self-care (01) ==
LOC: WSo 16:52 → LDRP 16:52 → WSo 18:58
PROVIDERS: ATTEND Obstetrics & Gynecology
DX: O99.613 Diseases of the digestive system complicating pregnancy, third trimester (principal); K83.1 Obstruction of bile duct; R53.83 Other fatigue; Z3A.30 30 weeks gestation of pregnancy
CPT/HCPCS: 36415; 80053; 85025; 96372; 99213

== ENCOUNTER 2018-10-30 17:08 | Outpatient (CLI) | payer MEDICAID ==
[2018-10-30] MEDS ORDERED: BETAMETHASONE ACE/NA PHOS 6 MG/ML (CELESTONE SOLUSPAN) ONE (17:10)
[2018-10-30] MEDS ORDERED: BETAMETHASONE ACE/NA PHOS 6 MG/ML (CELESTONE SOLUSPAN) IM NR (17:15)
--- NOTE | 2018-11-03 13:21 | Physician Query-Final Dx ---
DEANA TIJERINA 11/03/18 1321: Clinic Account Progress/Dx Physician Query: Please give diagnosis Date of Service Oct 30, 2018 at 17:08 HIRAM LARES DO 11/03/18 2144: Clinic Account Progress/Dx DIAGNOSIS: Diagnosis 30 week IUP Lethargy Cholestasis of DEANA TIJERINA Nov 03, 2018 13:21 HIRAM LARES DO Nov 03, 2018 21:44
== END 2018-10-30 17:19 | disposition home or self-care (01) ==
LOC: WSo 17:08 → LDRP 17:08 → WSo 17:19
PROVIDERS: ATTEND Obstetrics & Gynecology
DX: O99.613 Diseases of the digestive system complicating pregnancy, third trimester (principal); K83.1 Obstruction of bile duct; R53.83 Other fatigue; Z3A.30 30 weeks gestation of pregnancy
CPT/HCPCS: 96372

== ENCOUNTER 2018-11-13 20:39 | Outpatient (CLI) | payer MEDICAID ==
[~2018-11-13] VITALS: Ht 162.6 cm; Wt 57.6 kg
--- NOTE | 2018-11-13 20:50 | NUR ---
BAUTISTA BUTLER presented to unit via wheelchair from ED, accompanied by s/o, with c/o CONTRACTIONS. BAUTISTA BUTLER weighed, gowned, voided, and to bed. EFHM and TOCO applied, VS taken. BAUTISTA BUTLER oriented to bed controls, call light, TV, heat, and A/C controls.
[2018-11-13 21:05] VITALS: BP 99/57
--- NOTE | 2018-11-13 21:22 | NUR ---
Dr. Barron called and given update that pt of Dr Warner, , 33/5 is here with complaints of contractions. informed that pt is juani every 5-8 minutes and rating her pain at an 8. Informed that SVE showed a closed cervix, but pt does have a history of labor at 36 and 34 weeks and is a repeat c section. Informed that vitals are WNL's and being treated for Cholistasis in this . orders a straight cath UA, CBC, and for D5LR to be started at 500ml/hr and for pt to be rechecked in an hour.
[2018-11-13] MEDS ORDERED: D5 LR IV SOLUTION 1,000 ML IV ONE (21:28)
[2018-11-13] MEDS ORDERED: D5 LR IV SOLUTION 1,000 ML IV SCH (21:30)
[2018-11-13 21:58] LABS: BASOPHILS % (AUTO) 0 % (0-10); EOSINOPHILS # (AUTO) 0.1 10^3/uL (0.0-0.3); EOSINOPHILS % (AUTO) 1 % (0-10); HEMATOCRIT 36 % (35-52); HEMOGLOBIN 11.5 G/DL (11.5-16.0); LYMPHOCYTES # (AUTO) 1.4 X 10^3 (1.0-4.0); LYMPHOCYTES % (AUTO) 16 % (12-44); MEAN CORPUSCULAR HEMOGLOBIN 29 PG (25-34); MEAN CORPUSCULAR HGB CONC 32 G/DL (32-36); MEAN CORPUSCULAR VOLUME 90 FL (80-99); MEAN PLATELET VOLUME 10.4 FL (7.4-10.4); MONOCYTES # (AUTO) 0.5 X 10^3 (0.0-1.0); MONOCYTES % (AUTO) 5 % (0-12); NEUTROPHILS # (AUTO) 6.6 X 10^3 (1.8-7.8); NEUTROPHILS % (AUTO) 78 % (42-75); PLATELET COUNT 324 10^3/uL (130-400); WHITE BLOOD COUNT 8.5 10^3/uL (4.3-11.0)
[2018-11-13 22:37] LABS: BILIRUBIN,URINE NEGATIVE (NEGATIVE); CLARITY,URINE CLEAR; COLOR,URINE YELLOW; GLUCOSE, URINE (UA) NEGATIVE (NEGATIVE); KETONES,URINE 3+ (NEGATIVE); LEUKOCYTE ESTERASE ,URINE NEGATIVE (NEGATIVE); NITRITE,URINE NEGATIVE (NEGATIVE); PH,URINE 6.5 (5-9); PROTEIN,URINE NEGATIVE (NEGATIVE); UROBILINOGEN,URINE NORMAL (NORMAL)
[2018-11-13 22:41] VITALS: BP 101/56
[2018-11-13 22:52] LABS: BACTERIA,URINE TRACE /HPF; RBC,URINE 0-2 /HPF
--- NOTE | 2018-11-13 23:08 | NUR ---
Dr. Barron called and given an update on labs and contraction pattern. Informed that pt has not made any cervical change at this time and vitals remain WNL's. states that pt can be discharged and follow up with Dr. Warner next week.
--- NOTE | 2018-11-13 23:23 | NUR ---
Discharge instructions discussed with pt and s.o. No questions or concerns verbalized. Signature sheet signed by patient, placed on chart. Pt ambulating off unit to private vehicle with s.o. at side. No signs of distress noted.
== END 2018-11-13 23:23 | disposition home or self-care (01) ==
LOC: WSo 20:39 → LDRP 20:40 → WSo 23:23
PROVIDERS: ATTEND Obstetrics & Gynecology
DX: O62.9 Abnormality of forces of labor, unspecified (principal); Z3A.33 33 weeks gestation of pregnancy
CPT/HCPCS: 36415; 81000; 85025; 99213

== ENCOUNTER 2018-11-18 16:45 | Observation (INO) | payer MEDICAID ==
[2018-11-18] VITALS (7 sets, daily range): BP systolic 101–113; BP diastolic 60–74
[~2018-11-18] VITALS: Ht 162.6 cm; Wt 57.6 kg
--- NOTE | 2018-11-18 16:45 | NUR ---
BAUTISTA BUTLER presented to unit via AMBULATION from ED, accompanied by S/O, with c/o CHOLESTASIS. BAUTISTA BUTLER weighed, gowned, voided, and to bed. EFHM and TOCO applied, VS taken. BAUTISTA BUTLER oriented to bed controls, call light, TV, heat, and A/C controls.
--- NOTE | 2018-11-18 17:15 | NUR ---
INITIAL ASSESSMENT COMPLETED, VSS, NO DISTRESS NOTED, UA SENT TO LAB, PT REPORTS UPPER RT ABDOMINAL PAIN WITH IS CONSTANT STARTING AT APPROX 1430 TODAY. PT REPORTS HAVING CHOLESTASIS OF AND GALLBLADDER PROBLEMS SINCE PRIOR TO FIRST . PT DENIES LEAKING FLUID, CONTRACTIONS, OR OTHER C/O. WILL MONITOR CLOSELY.
--- NOTE | 2018-11-18 17:20 | NUR ---
DR LEE CALLED, NEW ORDERS RECEIVED, LAB CALLED ABOUT LAB DRAWS. PLAN OF CARE UPDATED WITH PT.
--- OUTSIDE RECORDS SUMMARY | 2018-11-18 17:45 | XMS REPORT | Clinical Summary ---
Author Author [facility] Organization [facility] Address Unknown Phone Unavailable Care Team Providers Care Operations Accountant Name Role Phone PCP Unavailable Allergies Not on File Current Medications Not on file Active Problems Not on file Social History Tobacco Use Types Packs/Day Years Used Date Never Assessed Sex Assigned at Date Recorded Not on file Last Filed Vital Signs Not on file Plan of Treatment Not on file Results Not on filefrom Last 3 Months
--- OUTSIDE RECORDS SUMMARY | 2018-11-18 17:45 | XMS REPORT | Continuity of Care Document ---
Author Organization Unknown Address Unknown Allergies There is no data. Medications There is no data. Problems Date Dx Coded Attending Type Code Diagnosis Diagnosed By 10/17/2009 SHIRA MENDOZA APRN V03.89 NEED FOR OTHER SPECIFIED PROPHYLACTIC VACCINATIONS AND INOCULATIONS AGAINST SINGLE BACTERIAL DISEASES 10/17/2009 SHIRA MENDOZA APRN N V05.3 HEPATITIS VIRAL/ALL 10/17/2009 SHIRA MENDOZA APRN N V05.4 VARICELLA, CHICKENPOX 10/17/2009 MARCOS MENDOZA APRNCY N V20.2 WELL CHILD, ROUTINE 10/17/2009 PEOPLES [...] DO, JARRELL K V22.0 , NORMAL FIRST Procedures Code [place] [address] TEST, URINE (IN- HOUSE) 02/07/2014 08581 TEST, URINE (IN- HOUSE) 04/12/2014 52311 TEST, URINE (IN- HOUSE) 04/13/2014 10854 INFLUENZA A & B (IN-HOUSE) 07/20/2014 39030 ROUTINE VENIPUNCTURE 10/12/2014 96691 US OB - COMPLETE >14 WEEKS 10/12/2014 72515 T4 FREE 10/12/2014 14343 T3 TOTAL 10/12/2014 86088 SYPHILLIS-[facility] 10/12/2014 43145 HIV ([facility]) 10/12/2014 57640 ANTIBODY SCREEN (order) 10/12/2014 74034 HEP B SURFACE ANTIGEN (STATE ) 10/12/2014 17541 GC/CHLAM URINE (STATE) 10/12/2014 30972 UA OB DIP 10/12/2014 24594 TEST, URINE (IN- HOUSE) 10/12/2014 99808 CBC 10/12/2014 75357 TSH 10/12/2014 3472201 ANTIBODY SCREEN (RESULT ONLY) 10/13/2014 54201 BLOOD TYPE/Rh FACTOR 10/13/2014 39514 CULTURE URINE 10/13/2014 37288 RUBELLA ANTIBODY, IGG 10/14/2014 Results Test Result Range CBC With Differential/Platelet - 11/27/16 15:04 WBC 10.6 x10E3/uL 3.4-10.8 RBC 3.71 x10E6/uL 3.77-5.28 Hemoglobin 11.4 g/dL 11.1-15.9 Hematocrit 34.3 % 34.0-46.6 MCV 93 fL 79-97 MCH 30.7 pg 26.6-33.0 MCHC 33.2 g/dL 31.5-35.7 RDW 13.1 % 12.3-15.4 Platelets 301 x10E3/uL 150-379 Neutrophils 75 % Lymphs 17 % Monocytes 6 % Eos 2 % Basos 0 % Neutrophils (Absolute) 8.0 x10E3/uL 1.4-7.0 Lymphs (Absolute) 1.8 x10E3/uL 0.7-3.1 Monocytes(Absolute) 0.6 x10E3/uL 0.1-0.9 Eos (Absolute) 0.2 x10E3/uL 0.0-0.4 Baso (Absolute) 0.0 x10E3/uL 0.0-0.2 Immature Granulocytes 0 % Immature Grans (Abs) 0.0 x10E3/uL 0.0-0.1 TSH - 11/27/16 15:04 TSH 5.580 uIU/mL 0.450-4.500 Gest. Diabetes 1-Hr Screen - 11/27/16 15:04 Gestational Diabetes Screen 88 mg/dL 65-139 Comp. Metabolic Panel (14) - 01/07/17 10:31 Glucose, Serum 69 mg/dL 65-99 BUN 13 mg/dL 6-20 Creatinine, Serum 0.76 mg/dL 0.57-1.00 eGFR If NonAfricn Am 111 mL/min/1.73 >59 eGFR If Africn Am 128 mL/min/1.73 >59 BUN/Creatinine Ratio 17 9-23 Sodium, Serum 138 mmol/L 134-144 Potassium, Serum 4.2 mmol/L 3.5-5.2 Chloride, Serum 102 mmol/L 96-106 Carbon Dioxide, Total 21 mmol/L 18-29 Calcium, Serum 9.1 mg/dL 8.7-10.2 Protein, Total, Serum 7.0 g/dL 6.0-8.5 Albumin, Serum 3.7 g/dL 3.5-5.5 Globulin, Total 3.3 g/dL 1.5-4.5 A/G Ratio 1.1 1.2-2.2 Bilirubin, Total 0.6 mg/dL 0.0-1.2 Alkaline Phosphatase, S 199 IU/L 39-117 AST (SGOT) 231 IU/L 0-40 ALT (SGPT) 374 IU/L 0-32 TSH - 01/07/17 10:31 TSH 5.950 uIU/mL 0.450-4.500 Bile Acids, Fractionated LCMS - 01/07/17 10:31 Ursodeoxycholic Acids 0.10 umol/L Cholic Acids 40 umol/L Chenodeoxycholic Acids 12 umol/L Deoxycholic Acids 2.1 umol/L Total Bile Acids 54 umol/L CBC With Differential/Platelet - 01/10/17 09:29 WBC 8.1 x10E3/uL 3.4-10.8 RBC 3.98 x10E6/uL 3.77-5.28 Hemoglobin 11.6 g/dL 11.1-15.9 Hematocrit 34.9 % 34.0-46.6 MCV 88 fL 79-97 MCH 29.1 pg 26.6-33.0 MCHC 33.2 g/dL 31.5-35.7 RDW 13.0 % 12.3-15.4 Platelets 274 x10E3/uL 150-379 Neutrophils 70 % Lymphs 22 % Monocytes 6 % Eos 1 % Basos 0 % Neutrophils (Absolute) 5.7 x10E3/uL 1.4-7.0 Lymphs (Absolute) 1.8 x10E3/uL 0.7-3.1 Monocytes(Absolute) 0.5 x10E3/uL 0.1-0.9 Eos (Absolute) 0.1 x10E3/uL 0.0-0.4 Baso (Absolute) 0.0 x10E3/uL 0.0-0.2 Immature Granulocytes 1 % Immature Grans (Abs) 0.0 x10E3/uL 0.0-0.1 Hepatitis Panel (4) - 01/10/17 09:29 HBsAg Screen Negative Negative Hep A Ab, IgM Negative Negative Hep B Core Ab, IgM Negative Negative Hep C Virus Ab <0.1 s/co ratio 0.0-0.9 Prothrombin Time (PT) - 01/10/17 09:29 INR 0.9 0.8-1.2 Prothrombin Time 9.5 sec 9.1-12.0 PTT, Activated - 01/10/17 09:29 aPTT 25 sec 24-33 GGT - 01/10/17 09:29 GGT 46 IU/L 0-60 CBC With Differential/Platelet - 04/22/17 15:48 WBC 4.2 x10E3/uL 3.4-10.8 RBC 4.59 x10E6/uL 3.77-5.28 Hemoglobin 11.1 g/dL 11.1-15.9 Hematocrit 35.3 % 34.0-46.6 MCV 77 fL 79-97 MCH 24.2 pg 26.6-33.0 MCHC 31.4 g/dL 31.5-35.7 RDW 15.4 % 12.3-15.4 Platelets 323 x10E3/uL 150-379 Neutrophils 44 % Not Estab. Lymphs 48 % Not Estab. Monocytes 7 % Not Estab. Eos 1 % Not Estab. Basos 0 % Not Estab. Neutrophils (Absolute) 1.8 x10E3/uL 1.4-7.0 Lymphs (Absolute) 2.0 x10E3/uL 0.7-3.1 Monocytes(Absolute) 0.3 x10E3/uL 0.1-0.9 Eos (Absolute) 0.0 x10E3/uL 0.0-0.4 Baso (Absolute) 0.0 x10E3/uL 0.0-0.2 Immature Granulocytes 0 % Not Estab. Immature Grans (Abs) 0.0 x10E3/uL 0.0-0.1 Comp. Metabolic Panel (14) - 04/22/17 15:48 Glucose, Serum 80 mg/dL 65-99 BUN 15 mg/dL 6-20 Creatinine, Serum 0.81 mg/dL 0.57-1.00 eGFR If NonAfricn Am 103 mL/min/1.73 >59 eGFR If Africn Am 118 mL/min/1.73 >59 BUN/Creatinine Ratio 19 9-23 Sodium, Serum 142 mmol/L 134-144 Potassium, Serum 4.2 mmol/L 3.5-5.2 Chloride, Serum 104 mmol/L 96-106 Carbon Dioxide, Total 22 mmol/L 18-29 Calcium, Serum 9.4 mg/dL 8.7-10.2 Protein, Total, Serum 7.5 g/dL 6.0-8.5 Albumin, Serum 4.6 g/dL 3.5-5.5 Globulin, Total 2.9 g/dL 1.5-4.5 A/G Ratio 1.6 1.2-2.2 Bilirubin, Total 0.3 mg/dL 0.0-1.2 Alkaline Phosphatase, S 48 IU/L 39-117 AST (SGOT) 17 IU/L 0-40 ALT (SGPT) 12 IU/L 0-32 TSH - 04/22/17 15:48 TSH 10.240 uIU/mL 0.450-4.500 Encounters ACCT No. Visit Date/Time Discharge Status Pt. Type Provider Facility Loc./Unit Complaint [id number] 10/12/2014 13:34:00 10/12/2014 23:59:59 [facility] Outpatient JARRELL PEOPLES DO [id number] 07/20/2014 14:55:00 07/20/2014 23:59:59 [facility] Outpatient JARRELL PEOPLES DO [id number] 04/13/2014 13:24:00 04/13/2014 23:59:59 [facility] Outpatient JARRELL PEOPLES DO [id number] 04/12/2014 09:23:00 04/12/2014 23:59:59 [facility] Outpatient JARRELL PEOPLES DO [id number] 02/07/2014 15:23:00 02/07/2014 23:59:59 [facility] ASHLEY SHIRA PIPER APRN Corina [id number] 01/11/2017 10:07:00 Document Registration [id number] 04/23/2017 08:41:00 Document Registration [id number] 01/08/2017 08:40:00 Document Registration [id number] 01/11/2017 22:06:00 Document Registration [email or web address] 02/13/2015 12:07:07 [facility] Document Registration [id number] 11/28/2016 10:11:00 Document Registration
[2018-11-18 18:15] LABS: BILIRUBIN,URINE NEGATIVE (NEGATIVE); CLARITY,URINE SLIGHTLY CLOUDY; COLOR,URINE YELLOW; GLUCOSE, URINE (UA) NEGATIVE (NEGATIVE); KETONES,URINE NEGATIVE (NEGATIVE); LEUKOCYTE ESTERASE ,URINE 1+ (NEGATIVE); NITRITE,URINE NEGATIVE (NEGATIVE); PH,URINE 8 (5-9); PROTEIN,URINE NEGATIVE (NEGATIVE); UROBILINOGEN,URINE NORMAL (NORMAL)
[2018-11-18 18:27] LABS: BACTERIA,URINE TRACE /HPF; WBC,URINE RARE /HPF
--- NOTE | 2018-11-18 18:29 | NUR ---
LAB HERE FOR LAB DRAW.
[2018-11-18 18:38] LABS: BASOPHILS % (AUTO) 0 % (0-10); EOSINOPHILS % (AUTO) 0 % (0-10); HEMATOCRIT 33 % (35-52); HEMOGLOBIN 10.8 G/DL (11.5-16.0); LYMPHOCYTES # (AUTO) 1.2 X 10^3 (1.0-4.0); LYMPHOCYTES % (AUTO) 17 % (12-44); MEAN CORPUSCULAR HEMOGLOBIN 29 PG (25-34); MEAN CORPUSCULAR HGB CONC 32 G/DL (32-36); MEAN CORPUSCULAR VOLUME 88 FL (80-99); MEAN PLATELET VOLUME 9.9 FL (7.4-10.4); MONOCYTES # (AUTO) 0.4 X 10^3 (0.0-1.0); MONOCYTES % (AUTO) 6 % (0-12); NEUTROPHILS # (AUTO) 5.1 X 10^3 (1.8-7.8); NEUTROPHILS % (AUTO) 76 % (42-75); PLATELET COUNT 268 10^3/uL (130-400); RED CELL DISTRIBUTION WIDTH 16.7 % (10.0-14.5); WHITE BLOOD COUNT 6.7 10^3/uL (4.3-11.0)
[2018-11-18 18:56] LABS: ALANINE AMINOTRANSFERASE 25 U/L (0-55); ALBUMIN 3.4 GM/DL (3.2-4.5); ALKALINE PHOSPHATASE 170 U/L (40-136); BILIRUBIN,TOTAL 0.4 MG/DL (0.1-1.0); BUN/CREATININE RATIO 14; CALCIUM 9.6 MG/DL (8.5-10.1); CARBON DIOXIDE 21 MMOL/L (21-32); CHLORIDE 106 MMOL/L (98-107); CREATININE SERUM 0.69 MG/DL (0.60-1.30); GFR ESTIMATED > 60; GLUCOSE 72 MG/DL (70-105); POTASSIUM 4.1 MMOL/L (3.6-5.0); SODIUM 135 MMOL/L (135-145); TOTAL PROTEIN 6.8 GM/DL (6.4-8.2)
--- NOTE | 2018-11-18 19:00 | NUR ---
DR LEE CALLED WITH LAB RESULTS, NEW ORDERS RECEIVED, PLAN OF CARE EXPLAINED WITH PT/SO, NO QUESTIONS NOTED.
[2018-11-18] MEDS ORDERED: PATIENT MAY USE OWN MEDS, ALL MC SCH (19:15)
[2018-11-18] MEDS: DICYCLOMINE 10 MG (BENTYL) CAP PO SCH (20:09)
[2018-11-18] MEDS: D5 LR IV SOLUTION 1,000 ML IV SCH (21:00)
[2018-11-18] MEDS ORDERED: NON-FORMULARY MEDICATION 1 EA EA (Ursodiol 300 MG) PO SCH (21:00)
--- NOTE | 2018-11-18 21:30 | NUR ---
This RN called Dr Barron at this time at his request. Updated Dr on contraction pattern, patient denying any pain and FHR variability. New orders for cervical exam received.
[2018-11-19 00:30] VITALS: BP 108/57
[2018-11-19] MEDS: D5 LR IV SOLUTION 1,000 ML IV SCH (03:15)
[2018-11-19 03:30] VITALS: BP 99/63
[2018-11-19] MEDS ORDERED: LEVOTHYROXINE 50 MCG (LEVOTHROID) TAB PO SCH (06:30)
--- NOTE | 2018-11-19 07:25 | NUR ---
here. dismissal orders received.
--- NOTE | 2018-11-19 07:55 | History & Physical ---
History and Physical Date Seen by Provider: November 19, 2018 Time Seen by Provider: 07:50 This patient is a 22-year-old [address] white female patient of Dr. Warner for whom I am covering. She was admitted last evening due to labor and abdominal pain. She has a history of biliary colic due to gallbladder issues. She also has been diagnosed with cholestasis of . Cervical exam on admission suggested a change from her previous exam of about 1 cm. She was juani off and on and with some regularity. She was observed through the night hydrated and treated with Bentyl for her biliary colic. Her contractions and her pain have now essentially resolved. She indicates that she does feel ready for discharge home. She denies discharge or bleeding. She has had nausea or vomiting. She does feel baby moving and currently denies contractions. Allergies are to penicillin Medications are ursodiol vitamins Medical social and surgical histories are per the antepartum record per Dr. Warner HEENT exam is normal Neck is supple no lymphadenopathy no thyromegaly Abdomen is gravid soft nontender nondistended Extremities show no clubbing or cyanosis. There is no Homans sign. Pelvic exam per the labor and delivery nurse patient was about 1 cm dilated and thick on admission she has demonstrated no cervical change on periodic repeat exam through the night monitor shows a reactive heart rate pattern initially with somewhat regular contractions but does contractions have spaced out to less than 2 an hour and the patient is not feeling those Laboratory Tests Test 11/18/18 17:10 11/18/18 18:30 Range/Units Urine Color YELLOW Urine Clarity SLIGHTLY CLOUDY Urine pH 8 5-9 Urine Specific [place] 1.010 L 1.016-1.022 Urine Protein NEGATIVE NEGATIVE Urine Glucose (UA) NEGATIVE NEGATIVE Urine Ketones NEGATIVE NEGATIVE Urine Nitrite NEGATIVE NEGATIVE Urine Bilirubin NEGATIVE NEGATIVE Urine Urobilinogen NORMAL NORMAL MG/DL Urine Leukocyte Esterase 1+ H NEGATIVE Urine RBC (Auto) NEGATIVE NEGATIVE Urine RBC NONE /HPF Urine WBC RARE /HPF Urine Squamous Epithelial Cells 10-25 H /HPF Urine Crystals NONE /LPF Urine Bacteria TRACE /HPF Urine Casts NONE /LPF Urine Mucus NEGATIVE /LPF Urine Culture Indicated CULTURE PENDING White Blood Count 6.7 4.3-11.0 10^3/uL Red Blood Count 3.79 L 4.35-5.85 10^6/uL Hemoglobin 10.8 L 11.5-16.0 G/DL Hematocrit 33 L 35-52 % Mean Corpuscular Volume 88 80-99 FL Mean Corpuscular Hemoglobin 29 25-34 PG Mean Corpuscular Hemoglobin Concent 32 32-36 G/DL Red Cell Distribution Width 16.7 H 10.0-14.5 % Platelet Count 268 130-400 10^3/uL Mean Platelet Volume 9.9 7.4-10.4 FL Neutrophils (%) (Auto) 76 H 42-75 % Lymphocytes (%) (Auto) 17 12-44 % Monocytes (%) (Auto) 6 0-12 % Eosinophils (%) (Auto) 0 0-10 % Basophils (%) (Auto) 0 0-10 % Neutrophils # (Auto) 5.1 1.8-7.8 X 10^3 Lymphocytes # (Auto) 1.2 1.0-4.0 X 10^3 Monocytes # (Auto) 0.4 0.0-1.0 X 10^3 Eosinophils # (Auto) 0.0 0.0-0.3 10^3/uL Basophils # (Auto) 0.0 0.0-0.1 10^3/uL Sodium Level 135 135-145 MMOL/L Potassium Level 4.1 3.6-5.0 MMOL/L Chloride Level 106 98-107 MMOL/L Carbon Dioxide Level 21 21-32 MMOL/L Anion Gap 8 5-14 MMOL/L Blood Urea Nitrogen 10 7-18 MG/DL Creatinine 0.69 0.60-1.30 MG/DL Estimat Glomerular Filtration Rate > 60 BUN/Creatinine Ratio 14 Glucose Level 72 70-105 MG/DL Calcium Level 9.6 8.5-10.1 MG/DL Corrected Calcium 10.1 8.5-10.1 MG/DL Total Bilirubin 0.4 0.1-1.0 MG/DL Aspartate Amino Transf (AST/SGOT) 23 5-34 U/L Alanine Aminotransferase (ALT/SGPT) 25 0-55 U/L Alkaline Phosphatase 170 H 40-136 U/L Total Protein 6.8 6.4-8.2 GM/DL Albumin 3.4 3.2-4.5 GM/DL Patient's lab work is reassuring Assessment and plan 34+ week gestation in a patient with cholestasis of currently on ursodiol for control of her itching. Patient also apparently has a gallbladder issue and the Bentyl has had good effect for her pain. Contractions have resolved and her cervix is shown progressive change plan will be for discharge home with follow-up in clinic with her primary care provider. Dr. Warner is aware. labor Allergies and Home Medications Allergies Coded Allergies: Penicillins (Verified Allergy, Intermediate, HIVES, 01/15/15) Home Medications Levothyroxine Sodium 50 Mcg Tablet, 50 MCG PO DAILY, (Reported) Ondansetron 8 Mg Tab.rapdis, 8 MG PO Q6H PRN for NAUSEA/VOMITING . Prescribed by: SUYAPA MISTRY on 10/24/181334 Vit/Fe Fumarate/Fa 1 Each Tablet, 1 TAB PO DAILY, (Reported) Ursodiol 300 Mg Capsule, 300 MG PO TID Prescribed by: SUYAPA MISTRY on 10/24/181335 Patient Home Medication List Home Medication List Reviewed: Yes JOHN LEE MD November 19, 2018 07:55
[2018-11-19] MEDS ORDERED: DICY10CA12 PO (07:57)
--- NOTE | 2018-11-19 07:59 | Discharge Instructions ---
Discharge Instructions Discharge Medications New, Converted or Re-Newed RX: RX on Chart Patient Instructions Patient Instructions: As directed Return to The Hospital For: As directed Activity & Diet Discharge Diet: No Restrictions Activity as Tolerated: Yes Orders-Post D/C & Referrals Follow-up with Dr. Warner as scheduled for return OB Return to clinic for any signs symptoms and indications of labor/ ruptured membranes/bleeding/severe pain JOHN LEE MD November 19, 2018 07:59
[2018-11-19 08:14] VITALS: BP 107/61
--- NOTE | 2018-11-19 08:14 | NUR ---
initial shift assessment completed, see interventions for further. pt denies c/o pain @ time. POC reviewed, states understanding.
[2018-11-19] MEDS: DICYCLOMINE 10 MG (BENTYL) CAP PO SCH (08:26)
--- NOTE | 2018-11-19 09:00 | NUR ---
up to shower.
--- NOTE | 2018-11-19 10:05 | NUR ---
dismissal instructions given, verbalizes understanding. reviewed medication administration and schedule. signature page signed, placed on chart.
--- NOTE | 2018-11-19 10:13 | NUR ---
Rx called into [facility] in [place] per pt's request.
--- NOTE | 2018-11-19 10:45 | NUR ---
Pt ambulated to private vehicle with s/o @ side. pt stable with no sx's of distress noted.
== END 2018-11-19 08:01 | disposition home or self-care (01) ==
LOC: LDRP 16:45
PROVIDERS: ADMIT Obstetrics & Gynecology; ATTEND Obstetrics & Gynecology
DX: O26.613 Liver and biliary tract disorders in pregnancy, third trimester (principal); K83.1 Obstruction of bile duct; O99.613 Diseases of the digestive system complicating pregnancy, third trimester; K82.8 Other specified diseases of gallbladder; O60.03 Preterm labor without delivery, third trimester; Z88.0 Allergy status to penicillin; Z79.899 Other long term (current) drug therapy; Z3A.34 34 weeks gestation of pregnancy
CPT/HCPCS: 36415; 80053; 81000; 83789; 85025; 87088; 99211; G0378

== ENCOUNTER 2018-11-23 00:36 | Outpatient (CLI) | payer MEDICAID ==
[~2018-11-23] VITALS: Ht 162.6 cm; Wt 59.9 kg
[~2018-11-23 00:36] MED LIST changes: +DICY10CA12 PO
--- NOTE | 2018-11-23 00:45 | NUR ---
BAUTISTA BUTLER presented to unit via from ED, accompanied by s/o, with c/o CONTRACTIONS since 1999. BAUTISTA BUTLER weighed, gowned, voided, and to bed. EFHM and TOCO applied, VS taken. BAUTISTA BUTLER oriented to bed controls, call light, TV, heat, and A/C controls.
[2018-11-23 01:00] VITALS: BP 112/69
[2018-11-23 01:03] LABS: BILIRUBIN,URINE NEGATIVE (NEGATIVE); CLARITY,URINE CLEAR; COLOR,URINE YELLOW; GLUCOSE, URINE (UA) NEGATIVE (NEGATIVE); KETONES,URINE NEGATIVE (NEGATIVE); LEUKOCYTE ESTERASE ,URINE 1+ (NEGATIVE); NITRITE,URINE NEGATIVE (NEGATIVE); PH,URINE 7 (5-9); PROTEIN,URINE NEGATIVE (NEGATIVE); UROBILINOGEN,URINE NORMAL (NORMAL)
[2018-11-23 01:11] LABS: BACTERIA,URINE TRACE /HPF; WBC,URINE 0-2 /HPF
[2018-11-23] MEDS ORDERED: D5 LR IV SOLUTION 1,000 ML IV SCH (01:30)
[2018-11-23 01:49] LABS: BASOPHILS % (AUTO) 0 % (0-10); EOSINOPHILS # (AUTO) 0.1 10^3/uL (0.0-0.3); EOSINOPHILS % (AUTO) 1 % (0-10); HEMATOCRIT 32 % (35-52); HEMOGLOBIN 10.4 G/DL (11.5-16.0); LYMPHOCYTES # (AUTO) 1.5 X 10^3 (1.0-4.0); LYMPHOCYTES % (AUTO) 27 % (12-44); MEAN CORPUSCULAR HEMOGLOBIN 28 PG (25-34); MEAN CORPUSCULAR HGB CONC 33 G/DL (32-36); MEAN CORPUSCULAR VOLUME 87 FL (80-99); MEAN PLATELET VOLUME 10.4 FL (7.4-10.4); MONOCYTES # (AUTO) 0.4 X 10^3 (0.0-1.0); MONOCYTES % (AUTO) 7 % (0-12); NEUTROPHILS # (AUTO) 3.6 X 10^3 (1.8-7.8); NEUTROPHILS % (AUTO) 65 % (42-75); PLATELET COUNT 272 10^3/uL (130-400); WHITE BLOOD COUNT 5.5 10^3/uL (4.3-11.0)
[2018-11-23 02:06] LABS: ALANINE AMINOTRANSFERASE 80 U/L (0-55); ALBUMIN 3.2 GM/DL (3.2-4.5); ALKALINE PHOSPHATASE 175 U/L (40-136); BILIRUBIN,TOTAL 0.3 MG/DL (0.1-1.0); BUN/CREATININE RATIO 16; CALCIUM 9.1 MG/DL (8.5-10.1); CARBON DIOXIDE 18 MMOL/L (21-32); CHLORIDE 107 MMOL/L (98-107); CREATININE SERUM 0.74 MG/DL (0.60-1.30); GFR ESTIMATED > 60; GLUCOSE 81 MG/DL (70-105); POTASSIUM 3.5 MMOL/L (3.6-5.0); SODIUM 136 MMOL/L (135-145); TOTAL PROTEIN 6.6 GM/DL (6.4-8.2)
[2018-11-23 03:50] VITALS: BP 111/56
--- NOTE | 2018-11-23 05:30 | NUR ---
called to unit. update given. no new orders at this time.
[2018-11-23 05:50] VITALS: BP 104/51
[2018-11-23 07:50] VITALS: BP 100/57
--- NOTE | 2018-11-23 08:15 | NUR ---
Dr Warner here to see pt. Order to update with BPP results, if OK, may D/C home with follow up in one week.
--- NOTE | 2018-11-23 08:45 | NUR ---
Dr. Warner updated on BPP results. Orders for D/C rec'd.
--- NOTE | 2018-11-23 09:14 | NUR ---
Follow up appt made for pt for November 30 at 10:30 am.
[2018-11-23 09:25] VITALS: BP 93/52
--- NOTE | 2018-11-23 09:28 | Diagnostic Imaging Report ---
INDICATION: Evaluate growth. TECHNIQUE: Multiple real-time grayscale images were obtained over the gravid uterus. COMPARISON: None FINDINGS: There is a single live fetus in a cephalic presentation. heart rate was recorded at 153 beats per minute. Placenta is fundal and to the right. Amniotic fluid volume is normal. Biophysical profile was also performed. Amniotic fluid index is 12.7 cm. Overall biophysical profile score is 6/8. A 2 point deduction was given for lack of breathing movements visualized. Biometrical measurements are as follows: Biparietal 8.46 cm, age 34 weeks 1 days. Head circumference 31.68 cm, age 35 weeks 5 days. Abdominal circumference 30.89 cm, age 34 weeks 6 days. Femur length 6.89 cm, age 35 weeks 3 days. Sonographic estimate age: 35 weeks 1 days. Sonographic estimated date of delivery: 12/27/18. Estimated Weight: 2564 gm (+/- 374 gm). LMP percentile: 42%. heart rate: 153 beats per minute. number: 1 of 1. IMPRESSION: 1. Single live IUP of approximately 35 weeks gestational age with estimated date of confinement sonographically of 12/27/2018. 2. Biophysical profile score 6/8. Dictated by: Dictated on workstation # [id number]
--- NOTE | 2018-11-23 10:00 | NUR ---
Discharge instructions explained to pt with copy provided to pt. Pt verbalizes understanding of teaching, denies questions or concerns at this time and signs to verify. Pt ambulates self off unit accompanied by S.O. to private vehicle. No s/s of distress noted.
--- NOTE | 2018-11-23 10:10 | History & Physical-OB ---
OB - Chief Complaint & HPI Date/Time Date of Admission: Date of Admission: Date seen by a Provider: November 23, 2018 Time Seen by a Provider: 10:00 Chief Complaint/History Hx : 3 Hx Para: 1 Expected Date of Delivery: Dec 27, 2018 Gestational Age in Weeks: 35 Gestational Age in Days: 1 Other reason for admission: Contractions irregularly Allergies and Home Medications Allergies Coded Allergies: Penicillins (Verified Allergy, Intermediate, HIVES, 01/15/15) Home Medications Dicyclomine HCl 10 Mg Capsule, 10 MG PO AC Prescribed by: JOHN GEE on 11/19/18 0757 Levothyroxine Sodium 50 Mcg Tablet, 50 MCG PO DAILY, (Reported) Ondansetron 8 Mg Tab.rapdis, 8 MG PO Q6H PRN for NAUSEA/VOMITING . Prescribed by: SUYAPA MISTRY on 10/24/18 1335 Vit/Fe Fumarate/Fa 1 Each Tablet, 1 TAB PO DAILY, (Reported) Ursodiol 300 Mg Capsule, 300 MG PO TID Prescribed by: SUYAPA MISTRY on 10/24/18 1336 Patient Home Medication List Home Medication List Reviewed: Yes OB - History Hx of Present Care: Yes Ultrasounds: Normal mid trimester US Obstetrical Complications: Other (Cholestasis of ) Medical Complications: None Obstetrical History Hx Termination: No Hx Multiple Gestation: No Hx Stillbirth: No Hx Complication: No Hx Induced Hypertens: No Hx Maternal Gestational Diabet: No Delivery History Hx Dystocia: No Hx Large For Gestational Age I: No Hx Small for Gestational Age I: No Hx Section: No Hx Vaginal Delivery Post C-Sec: No Patient Past Medical History PMH: Subclinical hypothyroidism PSH: none Social History/Family History HIV/AIDS: No Recent Infectious Disease Expo: No Sexually Transmitted Disease: No Immunizations Hepatitis A: Yes Hepatitis B: Yes Tetanus Booster (TDap): Unknown Date of Influenza Vaccine: Jun 20, 2014 OB - Admission Exam Physical Exam Vitals: Vital Signs 11/23/18 11/23/18 01:00 05:50 Temp 98.1 Pulse 64 Resp 18 B/P (MAP) 104/51 (68) O2 Delivery Room Air HEENT: NCAT Heart: Rhythm Normal Lungs: Clear Abdomen: Gravid Extremities: Normal Reflexes: Normal Cervical Dilatation: 1cm Effacement: 75% Station: -3 Membranes: Intact Heart Rate: 130's Accelerations: Accelerations Present Decelerations: No Decelerations Short Term 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: 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: Average (6-25) Contractions on Admission: >10 Minutes Apart Labs Laboratory Tests Test 11/23/18 00:55 11/23/18 01:30 Range/Units Urine Color YELLOW Urine Clarity CLEAR Urine pH 7 5-9 Urine Specific [place] 1.005 L 1.016-1.022 Urine Protein NEGATIVE NEGATIVE Urine Glucose (UA) NEGATIVE NEGATIVE Urine Ketones NEGATIVE NEGATIVE Urine Nitrite NEGATIVE NEGATIVE Urine Bilirubin NEGATIVE NEGATIVE Urine Urobilinogen NORMAL NORMAL MG/DL Urine Leukocyte Esterase 1+ H NEGATIVE Urine RBC (Auto) NEGATIVE NEGATIVE Urine RBC NONE /HPF Urine WBC 0-2 /HPF Urine Squamous Epithelial Cells 10-25 H /HPF Urine Crystals NONE /LPF Urine Bacteria TRACE /HPF Urine Casts NONE /LPF Urine Mucus NEGATIVE /LPF Urine Culture Indicated NO White Blood Count 5.5 4.3-11.0 10^3/uL Red Blood Count 3.66 L 4.35-5.85 10^6/uL Hemoglobin 10.4 L 11.5-16.0 G/DL Hematocrit 32 L 35-52 % Mean Corpuscular Volume 87 80-99 FL Mean Corpuscular Hemoglobin 28 25-34 PG Mean Corpuscular Hemoglobin Concent 33 32-36 G/DL Red Cell Distribution Width 17.0 H 10.0-14.5 % Platelet Count 272 130-400 10^3/uL Mean Platelet Volume 10.4 7.4-10.4 FL Neutrophils (%) (Auto) 65 42-75 % Lymphocytes (%) (Auto) 27 12-44 % Monocytes (%) (Auto) 7 0-12 % Eosinophils (%) (Auto) 1 0-10 % Basophils (%) (Auto) 0 0-10 % Neutrophils # (Auto) 3.6 1.8-7.8 X 10^3 Lymphocytes # (Auto) 1.5 1.0-4.0 X 10^3 Monocytes # (Auto) 0.4 0.0-1.0 X 10^3 Eosinophils # (Auto) 0.1 0.0-0.3 10^3/uL Basophils # (Auto) 0.0 0.0-0.1 10^3/uL Sodium Level 136 135-145 MMOL/L Potassium Level 3.5 L 3.6-5.0 MMOL/L Chloride Level 107 98-107 MMOL/L Carbon Dioxide Level 18 L 21-32 MMOL/L Anion Gap 11 5-14 MMOL/L Blood Urea Nitrogen 12 7-18 MG/DL Creatinine 0.74 0.60-1.30 MG/DL Estimat Glomerular Filtration Rate > 60 BUN/Creatinine Ratio 16 Glucose Level 81 70-105 MG/DL Calcium Level 9.1 8.5-10.1 MG/DL Corrected Calcium 9.7 8.5-10.1 MG/DL Total Bilirubin 0.3 0.1-1.0 MG/DL Aspartate Amino Transf (AST/SGOT) 48 H 5-34 U/L Alanine Aminotransferase (ALT/SGPT) 80 H 0-55 U/L Alkaline Phosphatase 175 H 40-136 U/L Total Protein 6.6 6.4-8.2 GM/DL Albumin 3.2 3.2-4.5 GM/DL OB - Assessment/Plan/Diagnosis Assessment Assessment: observation Admission Dx 22 yo @ 35 weeks Irregular contractions Cholestasis of Mildly elevated liver enzymes Hx of PTL Hx of C/S Admission Status: Observation Plan Other Plan Contractions spaced and patient feeling much better this AM, will DC home, BPP 6 8 -2 for breathing. EFW WNL. Next friday patient to come in for visit and surveillance. HIRAM LARES DO November 23, 2018 10:10
--- NOTE | 2018-11-24 13:41 | NUR ---
IV fluids stop time at 0925 on 11/23/18 per Raina Sandy RN.
== END 2018-11-23 10:00 | disposition home or self-care (01) ==
LOC: WSo 00:36 → LDRP 00:36 → WSo 10:00
PROVIDERS: ATTEND Obstetrics & Gynecology
DX: O47.03 False labor before 37 completed weeks of gestation, third trimester (principal); O26.613 Liver and biliary tract disorders in pregnancy, third trimester; K83.1 Obstruction of bile duct; O09.893 Supervision of other high risk pregnancies, third trimester; O34.219 Maternal care for unspecified type scar from previous cesarean delivery; O99.283 Endocrine, nutritional and metabolic diseases complicating pregnancy, third trimester; E02 Subclinical iodine-deficiency hypothyroidism; Z3A.35 35 weeks gestation of pregnancy; Z79.899 Other long term (current) drug therapy
CPT/HCPCS: 36415; 76805; 76819; 80053; 81000; 85025; 96360; 96361; 99214

== ENCOUNTER 2018-11-26 19:54 | Outpatient (CLI) | payer MEDICAID ==
[~2018-11-26] VITALS: Ht 160 cm; Wt 61.3 kg
[2018-11-26 20:22] LABS: BILIRUBIN,URINE NEGATIVE (NEGATIVE); CLARITY,URINE CLEAR; COLOR,URINE YELLOW; GLUCOSE, URINE (UA) NEGATIVE (NEGATIVE); KETONES,URINE NEGATIVE (NEGATIVE); LEUKOCYTE ESTERASE ,URINE 1+ (NEGATIVE); NITRITE,URINE NEGATIVE (NEGATIVE); PH,URINE 7 (5-9); PROTEIN,URINE NEGATIVE (NEGATIVE); UROBILINOGEN,URINE NORMAL (NORMAL)
[2018-11-26 20:37] LABS: BACTERIA,URINE FEW /HPF
[2018-11-26] MEDS ORDERED: NS IV 1000 ML 1,000 ML ONE (20:50)
[2018-11-26 21:00] VITALS: BP 109/70
[2018-11-26] MEDS ORDERED: NS IV 1000 ML 1,000 ML IV SCH (21:00)
[2018-11-26 21:20] LABS: BASOPHILS % (AUTO) 0 % (0-10); EOSINOPHILS % (AUTO) 1 % (0-10); HEMATOCRIT 33 % (35-52); HEMOGLOBIN 10.8 G/DL (11.5-16.0); LYMPHOCYTES # (AUTO) 1.4 X 10^3 (1.0-4.0); LYMPHOCYTES % (AUTO) 23 % (12-44); MEAN CORPUSCULAR HEMOGLOBIN 29 PG (25-34); MEAN CORPUSCULAR HGB CONC 33 G/DL (32-36); MEAN CORPUSCULAR VOLUME 88 FL (80-99); MEAN PLATELET VOLUME 10.3 FL (7.4-10.4); MONOCYTES # (AUTO) 0.3 X 10^3 (0.0-1.0); MONOCYTES % (AUTO) 6 % (0-12); NEUTROPHILS # (AUTO) 4.1 X 10^3 (1.8-7.8); NEUTROPHILS % (AUTO) 70 % (42-75); PLATELET COUNT 272 10^3/uL (130-400); RED CELL DISTRIBUTION WIDTH 17.2 % (10.0-14.5); WHITE BLOOD COUNT 5.8 10^3/uL (4.3-11.0)
[2018-11-26 21:37] LABS: ALANINE AMINOTRANSFERASE 98 U/L (0-55); ALBUMIN 3.2 GM/DL (3.2-4.5); ALKALINE PHOSPHATASE 186 U/L (40-136); BILIRUBIN,TOTAL 0.3 MG/DL (0.1-1.0); BUN/CREATININE RATIO 11; CALCIUM 8.9 MG/DL (8.5-10.1); CARBON DIOXIDE 21 MMOL/L (21-32); CHLORIDE 108 MMOL/L (98-107); CREATININE SERUM 0.66 MG/DL (0.60-1.30); GFR ESTIMATED > 60; GLUCOSE 83 MG/DL (70-105); POTASSIUM 3.4 MMOL/L (3.6-5.0); SODIUM 137 MMOL/L (135-145); TOTAL PROTEIN 6.9 GM/DL (6.4-8.2)
[2018-11-26] MEDS: D5 LR IV SOLUTION 1,000 ML IV SCH (22:15)
[2018-11-26] MEDS ORDERED: morphine INJ 4 MG/ML 1 ML (VIAL/SYRINGE) ONE (22:16)
[2018-11-26] MEDS ORDERED: morphine INJ 10 MG/ML 1ML (SYR OR VIAL) IVP STA (22:16)
[2018-11-27] MEDS: D5 LR IV SOLUTION 1,000 ML IV SCH (06:19)
--- NOTE | 2018-11-27 07:14 | History & Physical-OB ---
OB - Chief Complaint & HPI Date/Time Date of Admission: Date of Admission: Date seen by a Provider: November 27, 2018 Time Seen by a Provider: 06:55 Chief Complaint/History OB-Reason for Admission/Chief: Obstetrical Complication Hx : 5 Hx Para: 2 Expected Date of Delivery: Dec 27, 2018 Gestational Age in Weeks: 35 Gestational Age in Days: 5 Other reason for admission: Patient is a repeat with known diagnosis of cholestasis of . Reports contractions that have been since yesterday, and concerns with movement. Admission Nurse Assessment Rev: Yes Allergies and Home Medications Allergies Coded Allergies: Penicillins (Verified Allergy, Intermediate, HIVES, 01/15/15) Home Medications Dicyclomine HCl 10 Mg Capsule, 10 MG PO AC Prescribed by: JOHN GEE on 11/19/18 5057 Levothyroxine Sodium 50 Mcg Tablet, 50 MCG PO DAILY, (Reported) Ondansetron 8 Mg Tab.rapdis, 8 MG PO Q6H PRN for NAUSEA/VOMITING . Prescribed by: SUYAPA MISTRY on 10/24/18 1335 Vit/Fe Fumarate/Fa 1 Each Tablet, 1 TAB PO DAILY, (Reported) Ursodiol 300 Mg Capsule, 300 MG PO TID Prescribed by: SUYAPA MISTRY on 10/24/18 1336 Patient Home Medication List Home Medication List Reviewed: Yes OB - History Hx of Present Care: Yes Ultrasounds: Normal mid trimester US Obstetrical Complications: Other (Cholestasis of ) Medical Complications: Other Obstetrical History Hx : 2 Hx Termination: No Hx Total # of Abortions (Spona: 2 Hx Multiple Gestation: No Hx Stillbirth: No Hx Complication: No Hx Induced Hypertens: No Hx Maternal Gestational Diabet: No Delivery History Hx Dystocia: No Hx Large For Gestational Age I: No Hx Small for Gestational Age I: No Hx Section: No Hx Vaginal Delivery Post C-Sec: No Patient Past Medical History PMH: Subclinical hypothyroidism PSH: none Social History/Family History HIV/AIDS: No Sexually Transmitted Disease: No Immunizations Hepatitis A: Yes Hepatitis B: Yes Tetanus Booster (TDap): Unknown Date of Influenza Vaccine: Jun 20, 2014 OB - Admission Exam Physical Exam Vitals: Vital Signs 11/26/18 21:00 Temp 98.1 Pulse 52 Resp 18 B/P (MAP) 109/70 (83) O2 Delivery Room Air HEENT: NCAT Heart: Rhythm Normal Lungs: Clear Abdomen: Gravid Extremities: Normal Reflexes: Normal Cervical Dilatation: 1cm Effacement: 50% Station: -1 Membranes: Intact Heart Rate: 120's Accelerations: Accelerations Present Decelerations: No Decelerations Short Term Variability: Present Bilingual Student Tutor Variability: Average (6-25) Contractions on Admission: >10 Minutes Apart Intensity: Mild Labs Laboratory Tests Test 11/26/18 20:10 11/26/18 21:00 Range/Units Urine Color YELLOW Urine Clarity CLEAR Urine pH 7 5-9 Urine Specific Ambia 1.005 L 1.016-1.022 Urine Protein NEGATIVE NEGATIVE Urine Glucose (UA) NEGATIVE NEGATIVE Urine Ketones NEGATIVE NEGATIVE Urine Nitrite NEGATIVE NEGATIVE Urine Bilirubin NEGATIVE NEGATIVE Urine Urobilinogen NORMAL NORMAL MG/DL Urine Leukocyte Esterase 1+ H NEGATIVE Urine RBC (Auto) NEGATIVE NEGATIVE Urine RBC NONE /HPF Urine WBC 2-5 /HPF Urine Squamous Epithelial Cells 2-5 /HPF Urine Crystals NONE /LPF Urine Bacteria FEW H /HPF Urine Casts NONE /LPF Urine Mucus NEGATIVE /LPF Urine Culture Indicated NO White Blood Count 5.8 4.3-11.0 10^3/uL Red Blood Count 3.75 L 4.35-5.85 10^6/uL Hemoglobin 10.8 L 11.5-16.0 G/DL Hematocrit 33 L 35-52 % Mean Corpuscular Volume 88 80-99 FL Mean Corpuscular Hemoglobin 29 25-34 PG Mean Corpuscular Hemoglobin Concent 33 32-36 G/DL Red Cell Distribution Width 17.2 H 10.0-14.5 % Platelet Count 272 130-400 10^3/uL Mean Platelet Volume 10.3 7.4-10.4 FL Neutrophils (%) (Auto) 70 42-75 % Lymphocytes (%) (Auto) 23 12-44 % Monocytes (%) (Auto) 6 0-12 % Eosinophils (%) (Auto) 1 0-10 % Basophils (%) (Auto) 0 0-10 % Neutrophils # (Auto) 4.1 1.8-7.8 X 10^3 Lymphocytes # (Auto) 1.4 1.0-4.0 X 10^3 Monocytes # (Auto) 0.3 0.0-1.0 X 10^3 Eosinophils # (Auto) 0.0 0.0-0.3 10^3/uL Basophils # (Auto) 0.0 0.0-0.1 10^3/uL Sodium Level 137 135-145 MMOL/L Potassium Level 3.4 L 3.6-5.0 MMOL/L Chloride Level 108 H 98-107 MMOL/L Carbon Dioxide Level 21 21-32 MMOL/L Anion Gap 8 5-14 MMOL/L Blood Urea Nitrogen 7 7-18 MG/DL Creatinine 0.66 0.60-1.30 MG/DL Estimat Glomerular Filtration Rate > 60 BUN/Creatinine Ratio 11 Glucose Level 83 70-105 MG/DL Calcium Level 8.9 8.5-10.1 MG/DL Corrected Calcium 9.5 8.5-10.1 MG/DL Total Bilirubin 0.3 0.1-1.0 MG/DL Aspartate Amino Transf (AST/SGOT) 52 H 5-34 U/L Alanine Aminotransferase (ALT/SGPT) 98 H 0-55 U/L Alkaline Phosphatase 186 H 40-136 U/L Total Protein 6.9 6.4-8.2 GM/DL Albumin 3.2 3.2-4.5 GM/DL OB - Assessment/Plan/Diagnosis Assessment Assessment: observation Admission Dx 22 yo @ 35.6 Irregular uterine contractions Cholestasis of Hx of PTL and Delivery at 34 weeks Previous Admission Status: Observation Plan Other Plan Patient admitted overnight and IVFs ran throughout the night with continuous monitoring. Contractions noted to be irregular q 8min-15 min. No SVE change from prior admission. Labs stable. Reassurance given, and dc discussed with follow up in the office with surveillance next week in the office. Plan for delivery at 37 weeks HIRAM LARES DO November 27, 2018 07:14
--- NOTE | 2018-11-27 07:30 | NUR ---
DR. LARES HERE TO SEE PT. PLAN FOR DISCHARGE.
[2018-11-27 07:40] VITALS: BP 119/65
--- NOTE | 2018-11-27 07:45 | NUR ---
ASSESSMENT COMPLETED. DENIES PAIN.
--- NOTE | 2018-11-27 08:30 | NUR ---
EATING A REGULAR DIET.
--- NOTE | 2018-11-27 10:00 | NUR ---
DISCHARGE INSTRUCTIONS REVIEWED WITH COPY TO PT. STATES UNDERSTANDING OF ALL INSTRUCTIONS AND NEED TO F/U SCHEDULED AND NEEDED.
[2018-11-27 10:40] VITALS: BP 119/65
--- NOTE | 2018-11-27 10:40 | NUR ---
DISMISSED AMB FROM [facility] IN STABLE CONDITION.
== END 2018-11-27 10:40 | disposition home or self-care (01) ==
LOC: LDRP 19:54 → WSo 19:54
PROVIDERS: ATTEND Obstetrics & Gynecology
DX: O47.03 False labor before 37 completed weeks of gestation, third trimester (principal); Z3A.35 35 weeks gestation of pregnancy
CPT/HCPCS: 36415; 80053; 81000; 85025

== ENCOUNTER 2018-12-01 05:41 | Outpatient (CLI) | payer MEDICAID ==
[~2018-12-01] VITALS: Ht 160 cm; Wt 61.3 kg
[2018-12-01] MEDS ORDERED: LEVO150T6 PO (14:36)
[2018-12-01] MEDS ORDERED: PREN-53 PO (14:36)
== END 2018-12-01 14:58 | disposition home or self-care (01) ==
LOC: PREOP 05:41
PROVIDERS: ATTEND Obstetrics & Gynecology
DX: Z01.818 Encounter for other preprocedural examination (principal)

== ENCOUNTER 2018-12-07 10:00 | Inpatient (IN) | payer MEDICAID ==
[~2018-12-07] VITALS: Ht 160 cm; Wt 61.3 kg
[2018-12-07] VITALS (10 sets, daily range): BP systolic 96–121; BP diastolic 49–76
--- NOTE | 2018-12-07 09:55 | NUR ---
BAUTISTA BUTLER presented to unit via from HOME, accompanied by S/O, with c/o PREVIOUS. BAUTISTA BUTLER weighed, gowned, voided, and to bed. EFHM and TOCO applied, VS taken. BAUTISTA BUTLER oriented to bed controls, call light, TV, heat, and A/C controls.
[~2018-12-07 10:00] MED LIST changes: +LEVO150T6 PO; +PREN-53 PO
[2018-12-07] MEDS ORDERED: LACTATED RINGERS 1,000 ML IV SCH (10:01)
[2018-12-07] MEDS ORDERED: ceFAZolin 2 GM/50 ML NS 50 ML IV ONE (10:15)
[2018-12-07] MEDS ORDERED: METOCLOPRAMIDE INJ 10 MG/2 ML (REGLAN) IV ONE (10:15)
[2018-12-07] MEDS ORDERED: CITRIC ACID/SOB CIT (BICITRA) 30 ML UDC PO ONE (10:15)
[2018-12-07] MEDS ORDERED: FAMOTIDINE 20MG/2ML IV (PEPCID) IV ONE (10:15)
[2018-12-07] MEDS ORDERED: ceFAZolin INJECTION 1,000 MG ONE (10:59)
[2018-12-07] MEDS ORDERED: ceFAZolin INJECTION 1,000 MG in WATER (STERILE) FOR INJECTION 10 ML IV ONE (11:00)
[2018-12-07] MEDS ORDERED: WATER (STERILE) FOR INJECTION 10 ML ONE (11:00)
[2018-12-07 11:16] LABS: BASOPHILS % (AUTO) 0 % (0-10); EOSINOPHILS % (AUTO) 0 % (0-10); HEMATOCRIT 33 % (35-52); HEMOGLOBIN 10.8 G/DL (11.5-16.0); LYMPHOCYTES # (AUTO) 1.1 X 10^3 (1.0-4.0); LYMPHOCYTES % (AUTO) 14 % (12-44); MEAN CORPUSCULAR HEMOGLOBIN 28 PG (25-34); MEAN CORPUSCULAR HGB CONC 32 G/DL (32-36); MEAN CORPUSCULAR VOLUME 88 FL (80-99); MEAN PLATELET VOLUME 10.9 FL (7.4-10.4); MONOCYTES # (AUTO) 0.5 X 10^3 (0.0-1.0); MONOCYTES % (AUTO) 6 % (0-12); NEUTROPHILS # (AUTO) 6.7 X 10^3 (1.8-7.8); NEUTROPHILS % (AUTO) 81 % (42-75); PLATELET COUNT 245 10^3/uL (130-400); RED CELL DISTRIBUTION WIDTH 16.9 % (10.0-14.5); WHITE BLOOD COUNT 8.3 10^3/uL (4.3-11.0)
[2018-12-07] MEDS ORDERED: fentaNYL INJECTION 100 MCG/2 ML AMP ONE (11:36)
[2018-12-07] MEDS ORDERED: OXYTOCIN/NORMAL SALINE 500 ML IV ONE ×2 (11:36→11:46)
[2018-12-07] MEDS ORDERED: ROPIVACAINE 5MG/ML 30ML VIAL ONE (11:46)
--- OUTSIDE RECORDS SUMMARY | 2018-12-07 11:51 | XMS REPORT | Clinical Summary ---
Author Author [facility] Organization [facility] Address Unknown Phone Unavailable Care Team Providers [place] Worker Name Role Phone PCP Unavailable Allergies Not [...]
--- OUTSIDE RECORDS SUMMARY | 2018-12-07 11:52 | XMS REPORT | Continuity of Care Document ---
[...] PEOPLES DO, JARRELL K 786.2 COUGH 10/12/2014 PEOLPES DO, JARRELL K V22.0 , NORMAL FIRST Procedures Code Description [place] [address] TEST, URINE (IN-HOUSE) 02/07/2014 86884 TEST, URINE (IN-HOUSE) 04/12/2014 27731 TEST, URINE (IN-HOUSE) 04/13/2014 76162 INFLUENZA A & B (IN-HOUSE) 07/20/2014 67738 ROUTINE VENIPUNCTURE 10/12/2014 34064 US OB - COMPLETE >14 WEEKS 10/12/2014 34507 T4 FREE 10/12/2014 51966 T3 TOTAL 10/12/2014 93721 SYPHILLIS-[facility] 10/12/2014 76728 HIV ([facility]) 10/12/2014 79555 ANTIBODY SCREEN (order) 10/12/2014 30553 HEP B SURFACE ANTIGEN (STATE) 10/12/2014 72224 GC/CHLAM URINE (STATE) 10/12/2014 51676 UA OB DIP 10/12/2014 84214 TEST, URINE (IN-HOUSE) 10/12/2014 77145 CBC 10/12/2014 63217 TSH 10/12/2014 5141687 ANTIBODY SCREEN (RESULT ONLY) 10/13/2014 05575 BLOOD TYPE/Rh FACTOR 10/13/2014 53072 CULTURE URINE 10/13/2014 26222 RUBELLA ANTIBODY, IGG 10/14/2014 Results Test Result [...] Status Pt. Type Provider Facility Loc./Unit Complaint [id number] 10/12/2014 13:34:00 10/12/2014 23:59:59 [facility] Outpatient JARRELL PEOPLES DO [id number] 07/20/2014 14:55:00 07/20/2014 23:59:59 [facility] Outpatient JARRELL PEOPLES DO [id number] 04/13/2014 13:24:00 04/13/2014 23:59:59 [facility] Outpatient JARRELL PEOPLES DO [id number] 04/12/2014 09:23:00 04/12/2014 23:59:59 [facility] Outpatient JARRELL PEOPLES DO [id number] 02/07/2014 15:23:00 02/07/2014 23:59:59 [facility] ASHLEY SHIRA PIPER APRN Corina [id number] 01/11/2017 10:07:00 Document Registration [id number] 04/23/2017 08:41:00 Document Registration [id number] 01/08/2017 08:40:00 Document Registration [id number] 01/11/2017 22:06:00 Document Registration [email or web address] 02/13/2015 12:07:07 [facility] Document Registration [id number] 11/28/2016 10:11:00 Document Registration
[2018-12-07] MEDS: LACTATED RINGERS 1,000 ML IV SCH ×2 (11:55→17:25)
--- NOTE | 2018-12-07 12:16 | History & Physical-OB ---
OB - Chief Complaint & HPI Date/Time Date of Admission: Date of Admission: December 07, 2018 at 10:00 Date seen by a Provider: December 07, 2018 Time Seen by a Provider: 12:05 Chief Complaint/History OB-Reason for Admission/Chief: Section Hx : 5 Hx Para: 2 Expected Date of Delivery: Dec 27, 2018 Gestational Age in Weeks: 37 Gestational Age in Days: 1 Admission Nurse Assessment Rev: Yes History of Labs O pos antibody neg RI RPR NR HBsAg NR HIV NR GC neg GBS unknown Allergies and Home Medications Allergies Coded Allergies: Penicillins (Verified Allergy, Intermediate, HIVES, 12/01/18) Home Medications Levothyroxine Sodium 150 Mcg Tablet, 150 MCG PO DAILY, (Reported) [id number]/Iron Fumarate/FA/Dss 1 Each Tablet, 1 EACH PO DAILY, (Reported) Ursodiol 300 Mg Capsule, 300 MG PO TID Prescribed by: SUYAPA MISTRY on 10/24/18 5716 Patient Home Medication List Home Medication List Reviewed: Yes OB - History Hx of Present Care: No (late care) Ultrasounds: Normal mid trimester US Obstetrical Complications: Other (Cholestasis of ) Medical Complications: None Obstetrical History Hx Termination: No Hx Multiple Gestation: No Hx Stillbirth: No Hx Complication: No Hx Induced Hypertens: No Hx Maternal Gestational Diabet: No Delivery History Hx Dystocia: No Hx Large For Gestational Age I: No Hx Small for Gestational Age I: No Hx Section: No Hx Vaginal Delivery Post C-Sec: No Adverse Rxn to Tranfusion: No (HAS HAD BLOOD WITH NO REACTION) Patient Past Medical History PMH: Subclinical hypothyroidism PSH: none Social History/Family History HIV/AIDS: No Sexually Transmitted Disease: No Immunizations Hepatitis A: Yes Hepatitis B: Yes Tetanus Booster (TDap): Unknown Date of Influenza Vaccine: Jun 20, 2014 OB - Admission Exam Physical Exam HEENT: NCAT Heart: Rhythm Normal Lungs: Clear Abdomen: Gravid Extremities: Normal Reflexes: Normal Heart Rate: 130's Accelerations: Accelerations Present Decelerations: No Decelerations Short Term Variability: Present Senior Care Variability: Average (6-25) Contractions on Admission: 6-10 Minutes Apart Labs Laboratory Tests Test 12/07/18 10:59 Range/Units White Blood Count 8.3 4.3-11.0 10^3/uL Red Blood Count 3.81 L 4.35-5.85 10^6/uL Hemoglobin 10.8 L 11.5-16.0 G/DL Hematocrit 33 L 35-52 % Mean Corpuscular Volume 88 80-99 FL Mean Corpuscular Hemoglobin 28 25-34 PG Mean Corpuscular Hemoglobin Concent 32 32-36 G/DL Red Cell Distribution Width 16.9 H 10.0-14.5 % Platelet Count 245 130-400 10^3/uL Mean Platelet Volume 10.9 H 7.4-10.4 FL Neutrophils (%) (Auto) 81 H 42-75 % Lymphocytes (%) (Auto) 14 12-44 % Monocytes (%) (Auto) 6 0-12 % Eosinophils (%) (Auto) 0 0-10 % Basophils (%) (Auto) 0 0-10 % Neutrophils # (Auto) 6.7 1.8-7.8 X 10^3 Lymphocytes # (Auto) 1.1 1.0-4.0 X 10^3 Monocytes # (Auto) 0.5 0.0-1.0 X 10^3 Eosinophils # (Auto) 0.0 0.0-0.3 10^3/uL Basophils # (Auto) 0.0 0.0-0.1 10^3/uL OB - Assessment/Plan/Diagnosis Assessment Assessment: section Admission Dx 22 yo @ 37.1 weeks Cholestasis of Previous Subclinical hypothyroidism GBS unknown Limited care Admission Status: Inpatient Order (span 2 midnights) Reason for Inpatient Admission: repeat Plan Plan: Section HIRAM LARES DO December 07, 2018 12:16
[2018-12-07] MEDS ORDERED: OXYTOCIN/NORMAL SALINE 500 ML IV SCH (12:17)
[2018-12-07] MEDS ORDERED: TETANUS,DIPTH,PERTUSS P/F (BOOSTRIX) 0.5 ML VIAL IM SCH (12:30)
[2018-12-07] MEDS ORDERED: MEASLES,MUMPS,RUBELLA 1 EA INJ SC SCH (12:30)
[2018-12-07] MEDS ORDERED: ONDANSETRON 4 MG/2 ML (SDV) Z0FRAN IVP PRN ×2 (12:30→13:30)
[2018-12-07] MEDS ORDERED: PHENYLEPHRINE 100 MCG/ML 10 ML (ANESTHESIA) SYR ONE (12:33)
--- NOTE | 2018-12-07 12:58 | Discharge Inst-Women's Service ---
Discharge Inst-Women's Serv Depart Medication/Instructions New, Converted or Re-Newed RX: RX on Chart Final Diagnosis POD 2 RLTCS Consults/Follow Up Additional Follow Up: Yes Orders/Referrals Dr. Warner in 7-10 days and in 6 weeks Activity Activity: Activity as Tolerated Driving Instructions: No Driving for 1 Week NO SMOKING: NO SMOKING Nothing Inside Vagina: No Douching, No [place], No Tampons Diet Discharge Diet: No Restrictions Symptoms to Report to : Bleeding Excessive, Pain Increased, Fever Over 101 Degrees F, Vaginal Bleeding Increase, Questions/Concerns For Any Problems or Questions: Contact Your Physician Skin/Wound Care Infection Signs and Symptoms: Increased Redness, Foul Odor of Wound, Increased Drainage, Skin Itchy or Has a Rash, Increased Swelling, Temperature Above 101 F Operative Area Clean and Dry: Keep Incision Clean/Dry Stitches/[place]/Dermabond: Dermabond, Care of Stitches Bathing Instructions: HIRAM Alexis DO December 07, 2018 12:58
[2018-12-07] MEDS ORDERED: ACHD5005 PO (12:59)
[2018-12-07] MEDS ORDERED: DOCU-143 PO (12:59)
[2018-12-07] MEDS ORDERED: IBUP-844 PO (12:59)
[2018-12-07] MEDS ORDERED: ONDANSETRON 4 MG/2 ML (SDV) Z0FRAN ONE (13:03)
[2018-12-07] MEDS ORDERED: HYDROmorphone 2 MG/ML VIAL (DILAUDID) IV ONE (13:30)
[2018-12-07] MEDS ORDERED: CATHETER FLUSH 10 ML SYR IV SCH (14:00)
[2018-12-07] MEDS: KETOROLAC 30 MG/ML VIAL IV SCH ×2 (14:02→20:25)
--- NOTE | 2018-12-07 14:10 | NUR ---
FFU/1. lt michael noted. vinh-care offered. v-pad in place. pt denies c/o pain @ time. unable to move LE's upon command.
--- NOTE | 2018-12-07 14:13 | NUR ---
pt transferred to room 317 via bed with this RNAlyson RN and @ side. infant transported in open air crib. pt familiarized with room surroundings. ice water served. call light within reach.
--- NOTE | 2018-12-07 14:49 | NUR ---
report given to Cindi BENAVIDEZ.
--- NOTE | 2018-12-07 15:20 | NUR ---
RT CALLED ABOUT IS.
--- NOTE | 2018-12-07 16:15 | NUR ---
PT TO [facility] FOR DIANE WARNING, RN AT SIDE.
--- NOTE | 2018-12-07 17:10 | NUR ---
PT BACK TO ROOM FROM HALLWAYS, WARNING COMPLETE.
--- NOTE | 2018-12-07 17:25 | NUR ---
LR BOLUS UP, JONES REMOVED, STORK MEAL SERVED.
[2018-12-07] MEDS: DOCUSATE SODIUM 100 MG (COLACE) CAP PO SCH (20:25)
--- NOTE | 2018-12-07 21:11 | OPERATIVE REPORT ---
DATE OF SERVICE: 12/07/2018 PREOPERATIVE DIAGNOSES: 1. A 22-year-old G5, P2 at 37 weeks' gestation. 2. Previous section x2. 3. History of labor. 4. Cholestasis of . 5. Limited care. 6. Subclinical hypothyroidism. POSTOPERATIVE DIAGNOSIS: 1. A 22-year-old G5, P2 at 37 weeks' gestation. 2. Previous section x2. 3. History of labor. 4. Cholestasis of . 5. Limited care. 6. Subclinical hypothyroidism. PROCEDURE PERFORMED: Repeat low transverse section. SURGEON: Scar Lares DO. ANESTHESIA: Spinal. ESTIMATED BLOOD LOSS: 300 mL. URINE OUTPUT: 50 mL clear at the end of the procedure. FLUIDS: 1500 mL of lactated Ringer solution. FINDINGS: A live female weighing 6 pounds 9 ounces, Apgars of 8 and 8. Grossly normal-appearing uterus, bilateral fallopian tubes and ovaries. INDICATIONS: This 22-year-old female is a patient who was a transfer of late care. She had seen Dr. Missy Cui at about 26 weeks and was diagnosed with cholestasis of at 28 weeks. I took over her care at that point and saw the patient weekly with ultrasounds and growth scans and clinical surveillance due to ursodiol use, which did help her with the clinical symptoms of cholestasis; however, at 37 weeks, we recommended proceeding with delivery due to the increased risk of stillborn. Risk of repeat reviewed with the patient in detail, which she was familiar due to prior history. After all of her questions were answered in the preoperative area, consent was obtained in the preoperative area and the patient was taken to the operating room. OPERATIVE REPORT IN DETAIL: Once in the operating room, spinal anesthesia was found to be adequate. She was placed in supine position with leftward tilt, prepped and draped in normal sterile fashion. A Pfannenstiel skin incision was made through the previously existing scar using a knife and carried to underlying fascia using Bovie cautery. Fascial incision was extended laterally using Bovie cautery. Superior aspect of the fascial incision was then grasped with Mauricio clamps, tented up and dissected off the underlying rectus muscles. The inferior aspect of the fascial incision was then grasped with Mauricio clamps, tented up and dissected off the underlying rectus muscles. The rectus muscle was then dissected down in the midline using sharp dissection. We exposed the peritoneum, which I entered bluntly and extended using blunt traction where the rectus muscles were identified and down the midline as well. An Jared ring retractor was placed in the peritoneal incision, which offered excellent lateral side wall retraction. I then identified the lower uterine segment, which was found to be thinned out and make a low transverse incision through the vesicouterine peritoneum and bluntly dissected down to the membranes at which point I extended the uterine incision laterally and superiorly using bandage scissors. Amniotomy was performed using Allis clamp, clear fluid was noted. The was found in the vertex presentation. With gentle fundal pressure, the infant's head was elevated out of the incision where it is delivered through the incision. Anterior and posterior shoulders were delivered and the infant was then delivered and brought to the operative field. The cord was doubly clamped and cut. Nares and oropharynx were bulb suctioned and infant was handed off to waiting nurses in attendance. Cord blood was collected, 3-vessel cord with an intact placenta delivered spontaneously thereafter. IV Pitocin was initiated to facilitate uterine contraction. Uterine fundus became firmer with bimanual massage. Uterus was exteriorized and cleared of all endometrial clots and debris. I then proceeded with closing the uterine incision using #0 Vicryl suture in running locked fashion. A second layer of imbricating #0 Monocryl was placed. Excellent hemostasis was noted after doing this. I then placed the uterus back in the pelvis and copiously irrigated the pelvis with normal saline. Once again, there was no active bleeding noted from any of my dissection planes. I placed Interceed antiadhesive over my low transverse incision and proceeded with closing the uterus and proceeded to close the peritoneum using 3-0 Vicryl suture in running fashion. The rectus muscles reapproximated using 3-0 Vicryl suture in interrupted fashion. The fascia was reapproximated using #0 Vicryl suture in running fashion. Subcutaneous tissue was reapproximated using 3-0 plain interrupted subcutaneous stitch and the skin was reapproximated with 4-0 Monocryl in a running subcuticular. Dermabond was applied to incision, and sterile dressing with adhesive white tape. The patient tolerated the procedure well and was taken to recovery area in stable condition. Lap and sponge count was correct at the end of the procedure. Instrument count correct as well. One gram of Ancef was given preoperatively for infection prophylaxis. Job ID: [id number] DocumentID: [id number] Dictated Date: 12/07/2018 13:17:52 Facing Slitter Date: 12/07/2018 21:11:12 Dictated By: SCAR LARES DO
[2018-12-08] MEDS: HYDROcodone/APAP 5 MG/325 MG (LORTAB) TAB PO PRN ×3 (00:43→15:41)
[2018-12-08] MEDS: KETOROLAC 30 MG/ML VIAL IV SCH ×2 (01:55→08:53)
[2018-12-08 04:20] VITALS: BP 112/67
[2018-12-08 06:43] LABS: BASOPHILS % (AUTO) 0 % (0-10); EOSINOPHILS % (AUTO) 0 % (0-10); HEMATOCRIT 31 % (35-52); HEMOGLOBIN 10.1 G/DL (11.5-16.0); LYMPHOCYTES # (AUTO) 1.4 X 10^3 (1.0-4.0); LYMPHOCYTES % (AUTO) 14 % (12-44); MEAN CORPUSCULAR HEMOGLOBIN 29 PG (25-34); MEAN CORPUSCULAR HGB CONC 33 G/DL (32-36); MEAN CORPUSCULAR VOLUME 87 FL (80-99); MONOCYTES # (AUTO) 0.5 X 10^3 (0.0-1.0); MONOCYTES % (AUTO) 5 % (0-12); NEUTROPHILS # (AUTO) 8.4 X 10^3 (1.8-7.8); NEUTROPHILS % (AUTO) 81 % (42-75); PLATELET COUNT 222 10^3/uL (130-400); RED CELL DISTRIBUTION WIDTH 17.1 % (10.0-14.5); WHITE BLOOD COUNT 10.4 10^3/uL (4.3-11.0)
[2018-12-08 08:00] VITALS: BP 113/66
--- NOTE | 2018-12-08 08:14 | Postpartum Progress Note ---
Note Note Day # 1 Subjective: Patient is without complaints. Ambulating, voiding. Tolerating a regular diet without nausea or vomiting. Normal lochia. Pain is well controlled with oral pain medications. Objective: Physical Exam: General - Alert and oriented, no apparent distress Abdomen - Soft, appropriately tender to palpation, non-distended, fundus firm at umbilicus Extremities - no edema, negative Juani's bilaterally Incision- c/d/i Assessment: POD 1 RLTCS Cholestasis of Acute blood loss anemia Plan: Routine care. Encourage breast feeding. Encourage ambulation. Ferrous sulfate supplementation. Plan for discharge tomorrow Vitals - Labs Vital Signs - I&O Vital Signs Date Time Temp Pulse Resp B/P (MAP) Pulse Ox O2 Delivery O2 Flow Rate FiO2 12/08/18 04:20 97.7 54 18 112/67 (82) 98 12/07/18 23:40 98.8 67 18 111/71 (84) 99 12/07/18 20:25 98.9 67 18 121/76 (91) 100 12/07/18 16:00 98.1 83 20 111/63 (79) Room Air 12/07/18 13:57 96.8 18 98 Room Air 12/07/18 13:47 97.0 16 98 Room Air 12/07/18 13:27 96.9 16 98 Room Air 12/07/18 13:06 97.2 16 99 Room Air 12/07/18 12:00 108 20 111/64 (80) 100 Room Air 12/07/18 11:30 98.1 90 20 118/70 (86) 100 Room Air 12/07/18 11:00 98.1 90 20 118/70 (86) 100 Room Air I & O 12/08/18 07:00 Intake Total 2985 ml Output Total 1150 ml Balance 1835 ml Labs Laboratory Tests 12/07/18 10:59: White Blood Count 8.3, Red Blood Count 3.81L, Hemoglobin 10.8L, Hematocrit 33L, Mean Corpuscular Volume 88, Mean Corpuscular Hemoglobin 28, Mean Corpuscular Hemoglobin Concent 32, Red Cell Distribution Width 16.9H, Platelet Count 245, Mean Platelet Volume 10.9H, Neutrophils (%) (Auto) 81H, Lymphocytes (%) (Auto) 14, Monocytes (%) (Auto) 6, Eosinophils (%) (Auto) 0, Basophils (%) (Auto) 0, Neutrophils # (Auto) 6.7, Lymphocytes # (Auto) 1.1, Monocytes # (Auto) 0.5, Eosinophils # (Auto) 0.0, Basophils # (Auto) 0.0 12/08/18 06:26: White Blood Count 10.4, Red Blood Count 3.54L, Hemoglobin 10.1L, Hematocrit 31L, Mean Corpuscular Volume 87, Mean Corpuscular Hemoglobin 29, Mean Corpuscular Hemoglobin Concent 33, Red Cell Distribution Width 17.1H, Platelet Count 222, Mean Platelet Volume 11.0H, Neutrophils (%) (Auto) 81H, Lymphocytes (%) (Auto) 14, Monocytes (%) (Auto) 5, Eosinophils (%) (Auto) 0, Basophils (%) (Auto) 0, Neutrophils # (Auto) 8.4H, Lymphocytes # (Auto) 1.4, Monocytes # (Auto) 0.5, Eosinophils # (Auto) 0.0, Basophils # (Auto) 0.0 HIRAM LARES DO December 08, 2018 08:14
[2018-12-08] MEDS: DOCUSATE SODIUM 100 MG (COLACE) CAP PO SCH ×2 (08:53→21:59)
[2018-12-08] MEDS: LEVOTHYROXINE 125 MCG (LEVOTHROID) TABLET PO SCH (08:53)
--- NOTE | 2018-12-08 11:18 | Anesthesia-Regional Post-Op ---
Regional Patient Condition Mental Status: Alert, Oriented x3 Circulation: Same as Pre-Op Headache: Absent Sensation: Full Recovery Motor Block: Absent Post Op Complications Complications None Follow Up Care/Instructions Patient Instructions None needed. Anesthesia/Patient Condition Patient is doing well, no complaints, stable vital signs, no apparent adverse anesthesia problems. No complications reported per nursing. RAMO EMERY CRNA December 08, 2018 11:18
[2018-12-08 12:00] VITALS: BP 113/66
--- NOTE | 2018-12-08 13:30 | NUR ---
Telephone report from microbiology department - nasal swab positive for MRSA. Report given verbally to Dr. Warner. Orders received. Contact precautions initiated. Nursery notified. Patient instructed.
[2018-12-08] MEDS: IBUPROFEN 600 MG (MOTRIN) TAB PO SCH ×2 (15:42→21:59)
[2018-12-08 16:00] VITALS: BP 113/66
[2018-12-08] MEDS: BACITRACIN OINTMENT 28 GM TUBE TOP SCH ×2 (16:00→23:22)
[2018-12-08 20:00] VITALS: BP 120/70
[2018-12-09] VITALS: BP 117/68
[2018-12-09] MEDS: IBUPROFEN 600 MG (MOTRIN) TAB PO SCH ×2 (03:58→11:40)
[2018-12-09] MEDS: LACTATED RINGERS 1,000 ML IV SCH (04:13)
[2018-12-09] MEDS: LEVOTHYROXINE 125 MCG (LEVOTHROID) TABLET PO SCH (06:28)
--- NOTE | 2018-12-09 07:31 | Postpartum Progress Note ---
Note Note Day # 2 Subjective: Patient is without complaints. Ambulating, voiding. Tolerating a regular diet without nausea or vomiting. Normal lochia. Pain is well controlled with oral pain medications. Objective: Physical Exam: General - Alert and oriented, no apparent distress Abdomen - Soft, appropriately tender to palpation, non-distended, fundus firm at umbilicus Extremities - no edema, negative Juani's bilaterally Incision- c/d/i Assessment: POD 2 RLTCS Acute blood loss anemia Plan: Routine care. Encourage breast feeding. Encourage ambulation. Ferrous sulfate supplementation. Plan for discharge today Vitals - Labs Vital Signs - I&O Vital Signs Date Time Temp Pulse Resp B/P (MAP) Pulse Ox O2 Delivery O2 Flow Rate FiO2 12/09/18 00:00 98.4 67 16 117/68 (84) 98 Room Air 12/08/18 20:00 98.0 63 16 120/70 (87) 95 Room Air 12/08/18 16:00 98.3 66 18 113/66 (82) 98 Room Air 12/08/18 12:00 98.3 66 18 113/66 (82) 98 Room Air 12/08/18 08:00 98.3 66 18 113/66 (82) 98 Room Air I & O 12/09/18 07:00 Intake Total 1550 ml Output Total 1900 ml Balance -350 ml Labs Microbiology 12/07/18 MRSA Screen - Final, Complete HIRAM LARES DO December 09, 2018 07:31
--- NOTE | 2018-12-09 07:55 | NUR ---
DR LARES HERE NEW ORDERS.
[2018-12-09 08:30] VITALS: BP 115/78
[2018-12-09 11:00] VITALS: BP 115/78
[2018-12-09] MEDS: BACITRACIN OINTMENT 28 GM TUBE TOP SCH (11:40)
[2018-12-09] MEDS: DOCUSATE SODIUM 100 MG (COLACE) CAP PO SCH (11:40)
--- NOTE | 2018-12-09 15:05 | NUR ---
D/C INSTRUCTIONS EXPLAINED, SIGNED BY PT, NO QUESTIONS NOTED, VSS, PT VERBALIZES UNDERSTANDING OF FOLLOW UP INSTRUCTIONS AND CARE.
--- NOTE | 2018-12-09 15:20 | NUR ---
PT D/C TO HOME, TAKEN BY WC TO PRIVATE CAR WITH S/O AT SIDE, NO DISTRESS NOTED, SECURED IN REAR FACING CARSEAT.
== END 2018-12-09 15:20 | disposition home or self-care (01) | DRG 786 ==
LOC: LDRP 10:00
PROVIDERS: ADMIT Obstetrics & Gynecology; ATTEND Obstetrics & Gynecology
PROC: 10D00Z1 Extraction of Products of Conception, Low, Open Approach (ICD-10-PCS; principal; 2018-12-07 12:03)
DX: O34.211 Maternal care for low transverse scar from previous cesarean delivery (principal); O26.62 Liver and biliary tract disorders in childbirth; K83.1 Obstruction of bile duct; O90.81 Anemia of the puerperium; D62 Acute posthemorrhagic anemia; O99.284 Endocrine, nutritional and metabolic diseases complicating childbirth; E02 Subclinical iodine-deficiency hypothyroidism; O99.334 Smoking (tobacco) complicating childbirth; F17.210 Nicotine dependence, cigarettes, uncomplicated; Z87.51 Personal history of pre-term labor; Z3A.37 37 weeks gestation of pregnancy; Z37.0 Single live birth; Z88.0 Allergy status to penicillin
CPT/HCPCS: 36415; 85025; 86850; 86900; 86901; 87081; 94664

== ENCOUNTER 2020-08-14 21:33 | Emergency (ER) | payer MEDICAID ==
[~2020-08-14 21:33] MED LIST changes: +DOCU-143 PO; +IBUP-844 PO
[2020-08-14] MEDS ORDERED: ASPIRIN 81 MG CHEW (CHILDREN'S ASA) PO ONE (22:15)
[2020-08-14 22:44] LABS: BASOPHILS % (AUTO) 0 % (0-10); EOSINOPHILS # (AUTO) 0.1 10^3/uL (0.0-0.3); EOSINOPHILS % (AUTO) 1 % (0-10); HEMATOCRIT 42 % (35-52); HEMOGLOBIN 14.1 g/dL (11.5-16.0); LYMPHOCYTES # (AUTO) 2.2 10^3/uL (1.0-4.0); LYMPHOCYTES % (AUTO) 33 % (12-44); MEAN CORPUSCULAR HEMOGLOBIN 29 pg (25-34); MEAN CORPUSCULAR HGB CONC 34 g/dL (32-36); MEAN CORPUSCULAR VOLUME 87 fL (80-99); MEAN PLATELET VOLUME 9.9 fL (9.0-12.2); MONOCYTES # (AUTO) 0.5 10^3/uL (0.0-1.0); MONOCYTES % (AUTO) 7 % (0-12); NEUTROPHILS # (AUTO) 3.9 10^3/uL (1.8-7.8); NEUTROPHILS % (AUTO) 58 % (42-75); PLATELET COUNT 280 10^3/uL (130-400); WHITE BLOOD COUNT 6.6 10^3/uL (4.3-11.0)
[2020-08-14 22:58] LABS: ALBUMIN 4.3 GM/DL (3.2-4.5); CHLORIDE 105 MMOL/L (98-107); POTASSIUM 3.5 MMOL/L (3.6-5.0); PROTHROMBIN TIME PATIENT 13.1 SEC (12.2-14.7); SODIUM 139 MMOL/L (135-145)
[2020-08-14 22:59] LABS: CALCIUM 9.6 MG/DL (8.5-10.1)
[2020-08-14 23:00] LABS: AMYLASE 73 U/L (25-125); GLUCOSE 88 MG/DL (70-105)
[2020-08-14 23:02] LABS: BILIRUBIN,TOTAL 0.2 MG/DL (0.1-1.0); CARBON DIOXIDE 21 MMOL/L (21-32)
[2020-08-14 23:04] LABS: ALKALINE PHOSPHATASE 113 U/L (40-136); CREATININE SERUM 0.96 MG/DL (0.60-1.30); GFR ESTIMATED > 60
[2020-08-14 23:05] LABS: BUN/CREATININE RATIO 14
[2020-08-14 23:07] LABS: ALANINE AMINOTRANSFERASE 37 U/L (0-55); MAGNESIUM 1.9 MG/DL (1.6-2.4)
[2020-08-14 23:08] LABS: LIPASE 10 U/L (8-78)
[2020-08-14 23:09] LABS: CREATINE KINASE 122 U/L (29-168)
[2020-08-14 23:16] LABS: CREATINE KINASE MB 0.7 NG/ML (<6.6)
[2020-08-15] MEDS ORDERED: NS 100 ML (IVPB) BAG IV ONE
[2020-08-15] MEDS ORDERED: HOLD METFORMIN - RECEIVED CONTRAST 20 ML VIAL IV SCH
[2020-08-15] MEDS ORDERED: IOHEXOL 350 MG/ML 100 ML (OMNIPAQUE 350) VIAL IV ONE
[2020-08-15] MEDS ORDERED: METH4TAB PO (00:25)
--- NOTE | 2020-08-15 00:25 | ED Cardiac General ---
History of Present Illness General Chief Complaint: Chest Pain Stated Complaint: SOA CHEST TIGHTNESS/PAIN Nursing Triage Note: PT AMBULATES TO ROOM #8 WITH C/O CHEST DISCOMFORT. REPORTS INTERMITTENT CHEST DISCOMFORT BEGAN AT 1700 ON THIS DAY. DESCRIBES CHEST DISCOMFORT "WEIGHTS ON MY CHEST." REPORTS SOA WHEN EXPERIENCING CHEST DISCOMFORT. REPORTS HX ANXIETY. DENIES FEVER, CHILLS, COUGH, CONGESTION, OR ANY KNOWN COVID EXPOSURE. A&OX4. Source: patient History of Present Illness Date Seen by Provider: Aug 14, 2020 Time Seen by Provider: 22:08 Initial Comments PT ARRIVES VIA POV FROM HOME C/O MID CHEST PAIN SINCE 1699 TODAY ALSO C/O SHORTNESS OF BREATH WITH CHEST PAIN NO COUGH NO FEVER/SWEATS/CHILLS NO SWELLING IN LEGS/ FEET OR PAIN IN CALVES NO PALPITATIONS NO DIZZINESS OR SYNCOPE NO GI SYMPTOMS NO LOSS OF TASTE OR SMELL HAS HISTORY OF ASTHMA BUT HAS NOT USED AN INHALER IN A LONG TIME ALSO HAS ANXIETY, WELL MULTIPLE OTHER PSYCH DIAGNOSES. TAKES HYDROXYZINE AT BEDTIME, HAS NOT TAKEN ANY TONIGHT. 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 PCP; [facility] Allergies and Home Medications Allergies Coded Allergies: Penicillins (Verified Allergy, Intermediate, HIVES, 12/01/18) Home Medications Docusate Sodium 100 Mg Capsule, 100 MG PO BID Prescribed by: HIRAM LARES on 12/07/18 1259 Hydrocodone Bit/Acetaminophen 1 Tab Tab, 2 TAB PO Q6HR PRN for PAIN-MODERATE Prescribed by: HIRAM LARES on 12/07/18 1259 Ibuprofen 600 Mg Tablet, 600 MG PO Q6H Prescribed by: HIRAM LARES on 12/07/18 1259 Levothyroxine Sodium 150 Mcg Tablet, 150 MCG PO DAILY, (Reported) Methylprednisolone 4 Mg Tab.ds.pk, 4 MG PO UD PER DOSE PACK INSTRUCTIONS Prescribed by: SAMMIE WALKER on 08/15/20 0025 [id number]/Iron Fumarate/FA/Dss 1 Each Tablet, 1 EACH PO DAILY, (Reported) Patient Home Medication List Home Medication List Reviewed: Yes Review of Systems Review of Systems Constitutional: no symptoms reported; No chills, No diaphoresis, No dizziness, No fever EENTM: No Symptoms Reported Respiratory: See HPI; Denies Cough, Denies Orthopnea; Shortness of Air Cardiovascular: See HPI, Chest Pain; Denies Edema, Denies Irregular Heart Rate, Denies Lightheadedness, Denies Palpitations, Denies Syncope Gastrointestinal: No Symptoms Reported Genitourinary: No Symptoms Reported Musculoskeletal: no symptoms reported Skin: no symptoms reported Psychiatric/Neurological: Anxiety Endocrine: No Symptoms Reported Hematologic/Lymphatic: No Symptoms Reported Past Oelejaq-Gqamjb-Dvhvdg Hx Past Med/Social Hx: Reviewed and Corrections made Patient Social History Alcohol Use: Denies Use Smoking Status: Current Everyday Smoker (1 PPD) Type Used: Cigarettes Recent Infectious Disease Expo: No Recent Hopitalizations: No Immunizations Up To Date Tetanus Booster (TDap): Unknown PED Vaccines UTD: Yes Date of Influenza Vaccine: Jun 20, 2014 Seasonal Allergies Seasonal Allergies: Yes Past Medical History Surgeries: Yes ( X 2 ) Section Respiratory: Yes (childhood asthma) Asthma Cardiac: No Hypotension Neurological: No : No (HAS IUD IN PLACE--NO PERIOD SINCE IT WAS PLACED IN 2018) Reproductive Disorders: No Female Reproductive Disorders: Denies 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 Sexually Transmitted Disease: No HIV/AIDS: No Genitourinary: No Gastrointestinal: No Musculoskeletal: No Endocrine: Yes Hypothyroidsim HEENT: No Loss of Vision: Denies Hearing Impairment: Denies Cancer: No Psychosocial: Yes (MOOD DISORDER) Sleep Difficulties, Anxiety, Schizophrenia, Depression Integumentary: No Blood Disorders: No Adverse Reaction/Blood Tranf: No (HAS HAD BLOOD WITH NO REACTION) Family Medical History Hypertension 19 FATHER Heart Disease, Hypertension Physical Exam Vital Signs Vital Signs - First Documented 08/14/20 21:55 Temp 36.0 Pulse 71 Resp 18 B/P (MAP) 116/78 (91) Pulse Ox 98 O2 Delivery Room Air Capillary Refill : Less Than 3 Seconds Height, Weight, BMI Height: 5'3.00" Weight: 135lbs. 2.0oz. [id number]; 23.9 BMI Method:Stated General Appearance: No Apparent Distress, WD/WN, Anxious HEENT: PERRL/EOMI, Normal ENT Inspection Neck: Full Range of Motion, Normal Inspection, Non Tender, Supple Respiratory: Chest Non Tender, Normal Breath Sounds, No Accessory Muscle Use, No Respiratory Distress Cardiovascular: Regular Rate, Rhythm, No Edema, No JVD, No Murmur, Normal Peripheral Pulses Gastrointestinal: Normal Bowel Sounds, Non Tender, Soft Extremity: Normal Inspection, Normal Range of Motion, Non Tender, No Calf Tenderness, No Pedal Edema Neurologic/Psychiatric: Alert, Oriented x3, No Motor/Sensory Deficits, investigations manager II- XII Norm as Tested Skin: Normal Color, Warm/Dry Progress/Results/Core Measures Results/Orders Lab Results Laboratory Tests Test 08/14/20 22:10 Range/Units White Blood Count 6.6 4.3-11.0 10^3/uL Red Blood Count 4.83 3.80-5.11 10^6/uL Hemoglobin 14.1 11.5-16.0 g/dL Hematocrit 42 35-52 % Mean Corpuscular Volume 87 80-99 fL Mean Corpuscular Hemoglobin 29 25-34 pg Mean Corpuscular Hemoglobin Concent 34 32-36 g/dL Red Cell Distribution Width 13.0 10.0-14.5 % Platelet Count 280 130-400 10^3/uL Mean Platelet Volume 9.9 9.0-12.2 fL Immature Granulocyte % (Auto) 0 % Neutrophils (%) (Auto) 58 42-75 % Lymphocytes (%) (Auto) 33 12-44 % Monocytes (%) (Auto) 7 0-12 % Eosinophils (%) (Auto) 1 0-10 % Basophils (%) (Auto) 0 0-10 % Neutrophils # (Auto) 3.9 1.8-7.8 10^3/uL Lymphocytes # (Auto) 2.2 1.0-4.0 10^3/uL Monocytes # (Auto) 0.5 0.0-1.0 10^3/uL Eosinophils # (Auto) 0.1 0.0-0.3 10^3/uL Basophils # (Auto) 0.0 0.0-0.1 10^3/uL Immature Granulocyte # (Auto) 0.0 0.0-0.1 10^3/uL Erythrocyte Sedimentation Rate 7 0-20 MM/HR Prothrombin Time 13.1 12.2-14.7 SEC INR Comment 1.0 0.8-1.4 Activated Partial Thromboplast Time 28 24-35 SEC D-Dimer 0.89 H 0.00-0.49 UG/ML Sodium Level 139 135-145 MMOL/L Potassium Level 3.5 L 3.6-5.0 MMOL/L Chloride Level 105 98-107 MMOL/L Carbon Dioxide Level 21 21-32 MMOL/L Anion Gap 13 5-14 MMOL/L Blood Urea Nitrogen 13 7-18 MG/DL Creatinine 0.96 0.60-1.30 MG/DL Estimat Glomerular Filtration Rate > 60 BUN/Creatinine Ratio 14 Glucose Level 88 70-105 MG/DL Calcium Level 9.6 8.5-10.1 MG/DL Corrected Calcium 9.4 8.5-10.1 MG/DL Magnesium Level 1.9 1.6-2.4 MG/DL Total Bilirubin 0.2 0.1-1.0 MG/DL Aspartate Amino Transf (AST/SGOT) 28 5-34 U/L Alanine Aminotransferase (ALT/SGPT) 37 0-55 U/L Alkaline Phosphatase 113 40-136 U/L Lactate Dehydrogenase 267 H 125-220 U/L Total Creatine Kinase 122 29-168 U/L Creatine Kinase MB 0.7 <6.6 NG/ML Myoglobin 33.0 10.0-92.0 NG/ML Troponin I < 0.028 <0.028 NG/ML C-Reactive Protein High Sensitivity 0.46 0.00-0.50 MG/DL B-Type Natriuretic Peptide < 10.0 <100.0 PG/ML Total Protein 8.0 6.4-8.2 GM/DL Albumin 4.3 3.2-4.5 GM/DL Amylase Level 73 25-125 U/L Lipase 10 8-78 U/L Procalcitonin 0.01 <0.10 NG/ML Serum Test, Qualitative NEGATIVE NEGATIVE Coronavirus 2019 (BALTAZAR) Negative Negative Micro Results Microbiology 08/14/20 Influenza Types A,B Antigen (JUAN) - Final, Complete My Orders Orders - SAMMIE WALKER DO Ed Iv/Invasive Line Start (08/14/20 22:09) Ekg Tracing (08/14/20 22:09) Monitor-Rhythm Ecg Trace Only (08/14/20 22:09) Cbc With Automated Diff (08/14/20 22:09) Magnesium (08/14/20 22:09) Chest 1 View, Ap/Pa Only (08/14/20 22:09) Ekg Tracing (08/14/20 22:09) Comprehensive Metabolic Panel (08/14/20 22:09) Myoglobin Serum (08/14/20 22:09) Protime With Inr (08/14/20 22:09) Partial Thromboplastin Time (08/14/20 22:09) O2 (08/14/20 22:09) Ed Iv/Invasive Line Start (08/14/20 22:09) Creatine Kinase (08/14/20 22:09) Creatine Kinase Mb (08/14/20 22:09) Lipase (08/14/20 22:09) Amylase (08/14/20 22:09) BNP (08/14/20 22:09) Troponin I (08/14/20 22:09) Aspirin Chewable Tablet (Baby Aspirin Ch (08/14/20 22:15) Fibrin Degradation Products (08/14/20 22:09) Procalcitonin (Pct) (08/14/20 22:09) Hs C Reactive Protein (08/14/20 22:09) Erythrocyte Sedimentation Rate (08/14/20 22:09) LDH (08/14/20 22:09) Influenza A And B Antigens (08/14/20 22:09) Coronavirus Sars-Cov-2 So 2018 (08/14/20 22:09) Covid 19 Inhouse Test (08/14/20 22:09) Hcg,Qualitative Serum (08/14/20 22:09) Ct Angio Chest W (08/14/20 23:19) Iohexol Injection (Omnipaque 350 Mg/Ml 1 (08/15/20 00:00) Received Contrast (Hold Metformin- Contr (08/15/20 00:00) Ns (Ivpb) (Sodium Chloride 0.9% Ivpb Bag (08/15/20 00:00) Medications Given in ED Current Medications Medications Dose Ordered Sig/John Route Start Time Stop Time Status Last Admin Dose Admin Aspirin 324 mg ONCE ONCE PO 08/14/20 22:15 08/14/20 22:16 DC 08/14/20 22:22 324 MG Iohexol 100 ml ONCE ONCE IV 08/15/20 00:00 08/15/20 00:13 DC 08/14/20 23:57 100 ML Sodium Chloride 80 ml ONCE ONCE IV 08/15/20 00:00 08/15/20 00:13 DC 08/14/20 23:57 80 ML Vital Signs/I&O 108/14/20 08/15/20 21:55 21:55 00:35 Temp 36.0 36.0 Pulse 71 74 Resp 18 17 B/P (MAP) 116/78 (91) 122/77 (91) Pulse Ox 98 98 O2 Delivery Room Air Room Air Room Air Blood Pressure Mean: 91 Progress Progress Note : Progress Note PLACED IN ISOLATION ROOM PPE WORN AT ALL TIMES COVID-19 TESTING PERFORMED NO SYMPTOMS DURING ER STAY Initial ECG Impression Date: Aug 14, 2020 Initial ECG Impression Time: 22:05 Initial ECG Rate: 68 Initial ECG Rhythm: Normal Sinus Diagnostic Imaging Comments CXR--NO ACUTE PROCESS, PENDING RADIOLOGIST REVIEW CT CHEST ANGIOGRAM--NO P.E.. SMALL BILATERAL PLEURAL EFFUSIONS AND MILD NON- SPECIFIC INTERSTITIAL EDEMA. PER [facility] VIA FAX AT 0016 Reviewed: Reviewed by Me Departure Impression Primary Impression: Chest pain Additional Impressions: Anxiety SMALL BILATERAL PLEURAL EFFUSIONS Disposition: HOME, SELF-CARE Condition: Stable Departure-Patient Inst. Referrals: [facility] Patient Instructions: Anxiety, Adult (DC), Chest Pain, Adult ED, Pleural Effusion (DC) Add. Discharge Instructions: HOME, REST TYLENOL AND MOTRIN NEEDED FOR PAIN USE YOUR HYDROXYZINE UP TO 50 MG THREE TIMES A DAY NEEDED FOR ANXIETY FOLLOW UP WITH [facility] IN 3-4 DAYS FOR FURTHER CARE All discharge instructions reviewed with patient and/or family. Voiced understanding. Scripts Methylprednisolone (Medrol) 4 Mg Tab.ds.pk 4 MG PO UD for 6 Days, #21 PKG PER DOSE PACK INSTRUCTIONS Prov: SAMMIE WALKER DO 08/15/20 SAMMIE WALKER DO Aug 15, 2020 00:25
[2020-08-15 00:35] VITALS: BP 122/77
--- NOTE | 2020-08-15 06:27 | Diagnostic Imaging Report ---
Clinical indication: Patient with chest pain. Exam: Portable chest x-ray upright view. Comparisons: Chest x-ray dated 11/13/2016. Findings: Lungs/pleura: Lungs are clear. There is no pneumothorax. There is no pleural effusion. Mediastinum: Unremarkable. Pulmonary vasculature: Unremarkable. Heart: Unremarkable. Bones/extrathoracic soft tissue: Unremarkable. Impression: There is no radiographic evidence of acute cardiopulmonary process. Dictated by: Dictated on workstation # [id number]
--- NOTE | 2020-08-15 06:54 | Diagnostic Imaging Report ---
Clinical indications: Patient with chest tightness and shortness of air. Exam: CT angiogram of the chest performed with 100 cc Omnipaque 350 IV contrast. Coronal and oblique MIP images of the vasculature were created to better evaluate anatomy. Auto Exposure Controls were utilized during the CT exam to meet ALARA standards for radiation dose reduction. Comparison: Chest x-ray dated 08/14/2020. Findings: There is no evidence of pulmonary embolism. There is no thoracic aortic dissection or aneurysm. Lungs are clear. Small low-density pleural tag seen involving the lateral right lower lobe region. There is a 3 mm nodule in the right lung apex. There is a 3 mm pleural-based nodule involving the lateral left upper lobe. There is a 5 mm pleural-based nodule involving the lateral aspect right lower lobe. There is mild groundglass opacification involving the posterior aspects of both upper lobes and both lower lobes with slight volume loss seen, likely representing atelectasis. There is minimal patchy consolidation involving the posterior aspects of both lung bases. Small bilateral pleural effusions are seen. There is no significant mediastinal or hilar lymphadenopathy. There is no significant axillary lymphadenopathy. There is dense contrast bolus within the superior vena cava and right subclavian vein which causes streak artifact obscures portions of the mediastinum. There is no evidence of pulmonary embolism. There is no thoracic aortic aneurysm or dissection. Extrathoracic soft tissue structures are unremarkable. Limited visualization upper abdominal structures are unremarkable. Bones show no significant abnormality. IMPRESSION: 1: There is no evidence of pulmonary embolism. There is no thoracic aortic aneurysm or dissection. 2: Nonspecific small bilateral pleural effusions. 3: There are a few smaller nodules involving both lungs which may be from mild infectious or inflammatory process. There is groundglass opacification involving the posterior aspects of both lungs which may represent atelectasis, but superimposed infectious process cannot be completely excluded, especially given the bilateral pleural effusions. 4: There is no significant lymphadenopathy. I agree with [facility] report Dictated by: Dictated on workstation # [id number]
== END 2020-08-15 00:35 | disposition home or self-care (01) ==
LOC: EDUNIT# 21:33 → ER 21:36
DX: J90 Pleural effusion, not elsewhere classified (principal); F41.9 Anxiety disorder, unspecified; E03.9 Hypothyroidism, unspecified; J45.909 Unspecified asthma, uncomplicated; F17.210 Nicotine dependence, cigarettes, uncomplicated; Z88.0 Allergy status to penicillin; Z82.49 Family history of ischemic heart disease and other diseases of the circulatory system; Z79.890 Hormone replacement therapy; Z20.822 Contact with and (suspected) exposure to COVID-19
CPT/HCPCS: 71045; 71275; 80053; 82150; 82550; 82553; 83615; 83690; 83735; 83874; 83880; 84145; 84484; 84703; 85025; 85379; 85610; 85652; 85730; 86141; 87804; 93005; 93041; 99284; U0002; 36415; 87635

== ENCOUNTER 2020-11-07 22:25 | Emergency (ER) | payer MEDICAID ==
[~2020-11-07] VITALS: Ht 160 cm; Wt 99.1 kg
[~2020-11-07 22:25] MED LIST changes: +METH4TAB PO
[2020-11-07] MEDS ORDERED: ARIP2TAB3 PO (22:46)
[2020-11-07] MEDS ORDERED: SERT-414 (22:46)
[2020-11-07] MEDS ORDERED: HYDR-700 (22:46)
[2020-11-07 22:57] LABS: BILIRUBIN,URINE NEGATIVE (NEGATIVE); CLARITY,URINE CLEAR; COLOR,URINE YELLOW; GLUCOSE, URINE (UA) NEGATIVE (NEGATIVE); KETONES,URINE NEGATIVE (NEGATIVE); LEUKOCYTE ESTERASE ,URINE NEGATIVE (NEGATIVE); NITRITE,URINE NEGATIVE (NEGATIVE); PROTEIN,URINE NEGATIVE (NEGATIVE)
[2020-11-07 23:04] LABS: BACTERIA,URINE FEW /HPF; RBC,URINE 0-2 /HPF; WBC,URINE 0-2 /HPF
[2020-11-07 23:08] LABS: AMPHETAMINE SCREEN, URINE NEGATIVE (NEGATIVE); BARBITURATE SCREEN URINE NEGATIVE (NEGATIVE); BENZODIAZEPINES SCREEN URINE NEGATIVE (NEGATIVE); CANNABINOID SCREEN, URINE NEGATIVE (NEGATIVE); COCAINE SCREEN URINE NEGATIVE (NEGATIVE); METHADONE STAT NEGATIVE (NEGATIVE); METHAMPHETAMINE SCREEN URINE S NEGATIVE (NEGATIVE); OPIATE SCREEN URINE NEGATIVE (NEGATIVE); OXYCODONE STAT NEGATIVE (NEGATIVE); PROPOXYPHENE STAT NEGATIVE (NEGATIVE); TRICYCLIC ANTIDEPRESSANTS SCRE NEGATIVE (NEGATIVE)
[2020-11-07] MEDS ORDERED: KETOROLAC 60 MG/2 ML VIAL IM ONE (23:15)
[2020-11-07] MEDS ORDERED: ORPHENADRINE 60 MG/2 ML (NORFLEX) AMP (ED ONLY) IM ONE (23:15)
[2020-11-07] MEDS ORDERED: NAPR500T8 PO (23:17)
[2020-11-07] MEDS ORDERED: CYCL10TA9 PO (23:17)
--- NOTE | 2020-11-07 23:17 | ED General ---
General Chief Complaint: Respiratory Problems Stated Complaint: SOB,N/V,LIGHTHEADED, COUGH Nursing Triage Note: SOA/CHEST PRESSURE/ANXIETY Nursing Sepsis Screen: No Definite Risk Source of Information: Patient History of Present Illness Date Seen by Provider: Nov 07, 2020 Time Seen by Provider: 22:49 Initial Comments PT ARRIVES VIA POV FROM HOME--STATES HER BOYFRIEND DROVE HER HERE PT STATES ABOUT 2 HOURS AGO, SHE STARTED HAVING SOME "TIGHTNESS" IN HER CHEST--STATES IT TIGHTENS UP AND THEN LETS UP STATES SHE FEELS LIKE IT IS HARD TO BREATHE WHEN IT TIGHTENS UP PT STATES SHE HAS HAD THIS BEFORE AND THIS IS NO DIFFERENT PT WITH HISTORY OF PSYCH ISSUES, STATES SHE TOOK VISTARIL 25 MG AROUND 1999 TONIGHT--STATES SHE WAS NOT HAVING THESE SYMPTOMS WHEN SHE TOOK IT STATES [facility] AND HER ABILIFY DOSE WAS INCREASED DUE TO ONGOING ISSUES WITH ANXIETY PT HAS NOT TAKEN ANYTHING FOR THESE SYMPTOMS NO FEVER OR RECENT ILLNESS DENIES ALL COVID-19 SYMPTOMS OTHERWISE PT STATES SHE WAS SUPPOSED TO BE AT WORK TONIGHT AT 2300, BUT CALLED IN TO WORK AND CAME HERE INSTEAD 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 LMP--2 YEARS AGO, HAS HAD MIRENA IUD IN PLACE FOR 2 YEARS. PCP; [facility]. 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 [facility]: [facility] Allergies and Home Medications Allergies Coded Allergies: Penicillins (Verified Allergy, Intermediate, HIVES, 12/01/18) Home Medications Cyclobenzaprine HCl 10 Mg Tablet, 10 MG PO Q8H PRN for SPASMS Prescribed by: SAMMIE WALKER on 11/07/202316 Ibuprofen 600 Mg Tablet, 600 MG PO Q6H Prescribed by: HIRAM LARES on 12/07/18 1259 Levothyroxine Sodium 150 Mcg Tablet, 150 MCG PO DAILY, (Reported) Last Action: Last Taken Edited Naproxen 500 Mg Tablet.dr, 500 MG PO BID Prescribed by: SAMMIE WALKER on 11/07/202316 Patient Home Medication List Home Medication List Reviewed: Yes Review of Systems Review of Systems Constitutional: no symptoms reported; No chills, No diaphoresis, No dizziness, No fever, No malaise EENTM: no symptoms reported Respiratory: see HPI Cardiovascular: see HPI Gastrointestinal: no symptoms reported Genitourinary: no symptoms reported Musculoskeletal: no symptoms reported Skin: no symptoms reported Psychiatric/Neurological: Anxiety; Denies Headache, Denies Numbness, Denies Paresthesia, Denies Tingling, Denies Tremors, Denies Weakness Hematologic/Lymphatic: No Symptoms Reported Immunological/Allergic: no symptoms reported Past Xtgbock-Jvrvpf-Chjjft Hx Past Med/Social Hx: Reviewed and Corrections made Patient Social History Alcohol Use: Denies Use Smoking Status: Former Smoker Type Used: Cigarettes Former Smoker, Quit: Aug 20, 2016 Recent Infectious Disease Expo: No Recent Hopitalizations: No Immunizations Up To Date Tetanus Booster (TDap): Unknown PED Vaccines UTD: Yes Date of Influenza Vaccine: Jun 20, 2014 Seasonal Allergies Seasonal Allergies: Yes Past Medical History Surgeries: Yes ( X 2 ) Section Respiratory: Yes Asthma Cardiac: No Hypotension Neurological: No : No Reproductive Disorders: No Female Reproductive Disorders: Denies 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 Sexually Transmitted Disease: No HIV/AIDS: No Genitourinary: No Gastrointestinal: No Musculoskeletal: No Endocrine: Yes Hypothyroidsim HEENT: No Loss of Vision: Denies Hearing Impairment: Denies Cancer: No Psychosocial: Yes (MOOD DISORDER) Sleep Difficulties, Anxiety, Schizophrenia, Depression Integumentary: No Blood Disorders: No Adverse Reaction/Blood Tranf: No Family Medical History Hypertension 19 FATHER Heart Disease, Hypertension Physical Exam Vital Signs Vital Signs - First Documented 11/07/20 22:38 Temp 36.0 Pulse 91 Resp 18 B/P (MAP) 137/80 (99) Pulse Ox 98 O2 Delivery Room Air Capillary Refill : Less Than 3 Seconds Height, Weight, BMI Height: 5'3.00" Weight: 135lbs. 2.0oz. 61.783848bf; 38.00 BMI Method:Stated General Appearance: No Apparent Distress, WD/WN, Other (PINK HAIR) HEENT: PERRL/EOMI, TMs Normal, Normal ENT Inspection, Pharynx Normal Neck: Full Range of Motion, Normal Inspection, Non Tender, Supple Respiratory: Normal Breath Sounds, No Accessory Muscle Use, No Respiratory Distress, Other (ANTERIOR CHEST WALL TENDERNESS. PALPATION REPRODUCES PAIN ) Cardiovascular: Regular Rate, Rhythm, No JVD, No Murmur, Normal Peripheral Pulses Gastrointestinal: Non Tender, Soft Back: Normal Inspection Extremity: Normal Inspection Neurologic/Psychiatric: Alert, Oriented x3, No Motor/Sensory Deficits, underwriting internship II- XII Norm as Tested, Other (MILDLY ANXIOUS) Skin: Normal Color, Warm/Dry Progress/Results/Core Measures Suspected Sepsis Recent Fever Within 48 Hours: No Infection Criteria Present: None New/Unexplained Altered Menta: No Sepsis Screen: No Definite Risk SIRS Temperature: Pulse: 91 Respiratory Rate: 18 Blood Pressure 137 /80 Mean: 99 Results/Orders Lab Results Laboratory Tests Test 11/07/20 22:40 Range/Units Urine Color YELLOW Urine Clarity CLEAR Urine pH 6.0 5-9 Urine Specific [place] 1.025 H 1.016-1.022 Urine Protein NEGATIVE NEGATIVE Urine Glucose (UA) NEGATIVE NEGATIVE Urine Ketones NEGATIVE NEGATIVE Urine Nitrite NEGATIVE NEGATIVE Urine Bilirubin NEGATIVE NEGATIVE Urine Urobilinogen 0.2 < = 1.0 MG/DL Urine Leukocyte Esterase NEGATIVE NEGATIVE Urine RBC (Auto) TRACE-I NEGATIVE Urine RBC 0-2 /HPF Urine WBC 0-2 /HPF Urine Squamous Epithelial Cells 5-10 /HPF Urine Crystals NONE /LPF Urine Bacteria FEW H /HPF Urine Casts NONE /LPF Urine Mucus NEGATIVE /LPF Urine Culture Indicated NO Urine Opiates Screen NEGATIVE NEGATIVE Urine Oxycodone Screen NEGATIVE NEGATIVE Urine Methadone Screen NEGATIVE NEGATIVE Urine Propoxyphene Screen NEGATIVE NEGATIVE Urine Barbiturates Screen NEGATIVE NEGATIVE Ur Tricyclic Antidepressants Screen NEGATIVE NEGATIVE Urine Phencyclidine Screen NEGATIVE NEGATIVE Urine Amphetamines Screen NEGATIVE NEGATIVE Urine Methamphetamines Screen NEGATIVE NEGATIVE Urine Benzodiazepines Screen NEGATIVE NEGATIVE Urine Cocaine Screen NEGATIVE NEGATIVE Urine Cannabinoids Screen NEGATIVE NEGATIVE My Orders Orders - SAMMIE WALKER DO Urine Bedside (11/07/20 22:48) Drug Screen Stat (Urine) (11/07/20 22:48) Ua Culture If Indicated (11/07/20 22:48) Ketorolac Injection (Toradol Injection) (11/07/20 23:15) Orphenadrine Inj (Ed Only) (Norflex Inje (11/07/20 23:15) Medications Given in ED Current Medications Medications Dose Ordered Sig/John Route Start Time Stop Time Status Last Admin Dose Admin Ketorolac Tromethamine 60 mg ONCE ONCE IM 11/07/20 23:15 11/07/20 23:17 DC 11/07/20 23:50 60 MG Orphenadrine Citrate 60 mg ONCE ONCE IM 11/07/20 23:15 11/07/20 23:17 DC 11/07/20 23:50 60 MG Vital Signs/I&O 11/07/20 11/07/20 11/07/20 22:38 23:50 23:54 Temp 36.0 36.0 36.1 Pulse 91 88 Resp 18 16 B/P (MAP) 137/80 (99) 132/78 (99) Pulse Ox 98 99 O2 Delivery Room Air Room Air Capillary Refill : Less Than 3 Seconds Blood Pressure Mean: 99 Progress Note : Progress Note GIVEN TORADOL AND NORFLEX WITH IMPROVEMENT IN SYMPTOMS Departure Impression Primary Impression: Anxiety Additional Impression: Anterior chest wall pain Disposition: HOME, SELF-CARE Condition: Stable Departure-Patient Inst. Referrals: [facility] (PCP) Primary Care Physician ROSALIE SANTIAGO (Family) Primary Care Physician Patient Instructions: Anxiety, Adult ED, Muscle and Bone Pain (DC) Add. Discharge Instructions: HOME, REST TAKE YOUR HYDROXYZINE 1-2 PILLS EVERY 6 HOURS NEEDED MOIST HEAT TO CHEST AT 20 MINUTE INTERVALS FOLL0W UP WITH [facility] THIS WEEK FOR FURTHER CARE, RETURN TO ER IF WORSE All discharge instructions reviewed with patient and/or family. Voiced understanding. Scripts Cyclobenzaprine HCl (Cyclobenzaprine HCl) 10 Mg Tablet 10 MG PO Q8H PRN for SPASMS, #15 TAB 0 Refills Prov: SAMMIE WALKER DO 11/07/20 Naproxen (Naproxen) 500 Mg Tablet. 500 MG PO BID, #20 TAB Prov: SAMMIE WALKER DO 11/07/20 SAMMIE WALKER DO Nov 07, 2020 23:17
[2020-11-07 23:54] VITALS: BP 132/78
== END 2020-11-07 23:54 | disposition home or self-care (01) ==
LOC: EDUNIT# 22:25 → ER 22:27
DX: F41.9 Anxiety disorder, unspecified (principal); R07.89 Other chest pain; J45.909 Unspecified asthma, uncomplicated; I95.9 Hypotension, unspecified; E03.9 Hypothyroidism, unspecified; Z88.0 Allergy status to penicillin; Z87.891 Personal history of nicotine dependence; Z79.890 Hormone replacement therapy
CPT/HCPCS: 80306; 81000; 84703; 99284

== ENCOUNTER 2021-02-13 00:03 | Emergency (ER) | payer MEDICAID, OTHER ==
[~2021-02-13 00:03] MED LIST changes: +ARIP2TAB3 PO; +CYCL10TA9 PO; +HYDR-700; +NAPR500T8 PO; +SERT-414
[2021-02-13 00:25] VITALS: BP 133/86
--- NOTE | 2021-02-13 00:39 | ED Lower Extremity ---
General Chief Complaint: Lower Extremity Stated Complaint: RT FOOT INJURY Source: patient History of Present Illness Date Seen by Provider: Feb 13, 2021 Time Seen by Provider: 00:27 Initial Comments PT ARRIVES VIA POV FROM HOME C/O RIGHT ANKLE INJURY STATES AROUND 1500 TODAY, SHE WAS GOING DOWN SOME STEPS, AND HAD STEPPED FROM THE BOTTOM STEP ONTO THE GROUND AND TWISTED HER RIGHT ANKLE AND HEARD/FELT A POP. DID NOT FALL TO THE GROUND NO PARESTHESIAS OR MOTOR DEFICITS NO OTHER INJURIES FROM THE INCIDENT NO PRIOR INJURIES TO THIS ANKLE. TOOK IBUPROFEN AT 2000 LMP--2 YEARS AGO. HAS IUD IN PLACE PCP: [facility] Allergies and Home Medications Allergies Coded Allergies: Penicillins (Verified Allergy, Intermediate, HIVES, 12/01/18) Home Medications Cyclobenzaprine HCl 10 Mg Tablet, 10 MG PO Q8H PRN for SPASMS Prescribed by: SAMMIE WALKER on 11/07/202316 Ibuprofen 600 Mg Tablet, 600 MG PO Q6H Prescribed by: HIRAM LARES on 12/07/18 1259 Levothyroxine Sodium 150 Mcg Tablet, 150 MCG PO DAILY, (Reported) Naproxen 500 Mg Tablet.dr, 500 MG PO BID Prescribed by: SAMMIE WALKER on 11/07/202316 Naproxen 500 Mg Tablet.dr, 500 MG PO BID Prescribed by: SAMMIE WALKER on 02/13/21 0047 Patient Home Medication List Home Medication List Reviewed: Yes Review of Systems Constitutional: no symptoms reported : No Control/STD Prophylaxis: IUD Musculoskeletal: see HPI Skin: no symptoms reported Psychiatric/Neurological: No Symptoms Reported Past Lnwhpob-Sxlujw-Jtnhnf Hx Patient Social History Tobacco Use?: Yes Smoking Status: Current Everyday Smoker (< 1/2 PPD) Smokeless Tobacco Frequency: Never a User Use of E-Cig and/or Vaping René: Never a User Substance use?: Yes (THC, PILLS, DENIES IV USE) Substance type: Opiates/Opioids, Misuse of prescript meds, Marijuana Additional substance use comme: CLAIMS NO RECENT USE Alcohol Use?: Yes (USED TO DRINK MODERATE TO HEAVY, NOW ONLY OCCASIONALLY USES) Immunizations Up To Date Tetanus Booster (TDap): Unknown PED Vaccines UTD: Yes Seasonal Allergies Seasonal Allergies: Yes Past Medical History Surgery/Hospitalization HX: X 2 Surgeries: Yes ( X 2 ) Section Respiratory: Yes Asthma Cardiac: No Hypotension Neurological: No Reproductive Disorders: No 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 Sexually Transmitted Disease: No HIV/AIDS: No Genitourinary: No Gastrointestinal: No Musculoskeletal: No Endocrine: Yes (OBESITY) Hypothyroidsim HEENT: No Loss of Vision: Denies Hearing Impairment: Denies Cancer: No Psychosocial: Yes (MOOD DISORDER; SUBSTANCE ABUSE) Sleep Difficulties, Anxiety, Schizophrenia, Depression Integumentary: No Blood Disorders: No Adverse Reaction/Blood Tranf: No Family Medical History Hypertension 19 FATHER Heart Disease, Hypertension Physical Exam Vital Signs Vital Signs - First Documented 02/13/21 00:25 Temp 36.0 Pulse 94 Resp 16 B/P (MAP) 133/86 (102) Pulse Ox 93 O2 Delivery Room Air Capillary Refill : Height, Weight, BMI Height: 5'3.00" Weight: 135lbs. 2.0oz. [id number]; 38.00 BMI Method:Stated General Appearance: WD/WN, no apparent distress, obese Legs: right leg normal inspection Knees: right knee normal inspection Ankles: right ankle other (TENDERNESS AND SWELLING TO RIGHT LATERAL MALLEOLUS AREA. MOTOR/SENSORY/VASCULAR INTACT. 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, no motor/sensory deficits, alert, normal mood/affect, oriented x 3 Skin: normal color, warm/dry; No ecchymosis Procedures/Interventions Splinting and Joint Reduction : Saul wrap: Yes Splints: Air Stirrup [place] Progress/Results/Core Measures Results/Orders My Orders Orders - SAMMIE WALKER DO Ankle, Right, 3 Views (02/13/21 00:33) Saul Bandage (02/13/21 00:48) Gel Ankle Brace (02/13/21 00:48) Rx-Naproxen (Rx-Naprosyn) (02/13/21 00:48) Vital Signs/I&O 02/13/21 00:25 Temp 36.0 Pulse 94 Resp 16 B/P (MAP) 133/86 (102) Pulse Ox 93 O2 Delivery Room Air Diagnostic Imaging Comments XRAYS RIGHT ANKLE--NO ACUTE PROCESS, PENDING RADIOLOGIST REVIEW Reviewed: Reviewed by Me Departure Impression Primary Impression: Right ankle sprain Disposition: HOME, SELF-CARE Condition: Stable Departure-Patient Inst. Decision time for Depature: 00:45 Referrals: [facility] (PCP/Family) Primary Care Physician Patient Instructions: Ankle Sprain ED, How to Use an Elastic Bandage, Splint Care ED Add. Discharge Instructions: ICE TO SORE AREA AT 20 MINUTE INTERVALS SAUL WRAP AND SPLINT NEEDED FOR COMFORT ELEVATE FOOT MUCH POSSIBLE TYLENOL 1 GRAM 4 TIMES A DAY NEEDED FOR PAIN FOLLOW UP WITH [facility] IN 1 WEEK IF NO BETTER All discharge instructions reviewed with patient and/or family. Voiced understanding. Scripts Naproxen (Naproxen) 500 Mg Tablet. 500 MG PO BID, #20 TAB Prov: SAMMIE WALKER DO 02/13/21 SAMMIE WALKER DO Feb 13, 2021 00:39
[2021-02-13] MEDS ORDERED: NAPR500T8 PO (00:47)
[2021-02-13] MEDS ORDERED: RX-NAPROXEN (NAPROSYN) 250 MG TAB PPK#4 PO STA (00:48)
--- NOTE | 2021-02-13 07:15 | Diagnostic Imaging Report ---
Right ankle at 1242 INDICATION: Ankle pain 3 views were obtained. There are no prior studies for comparison. There is no fracture, dislocation or acute bony abnormality identified. The ankle mortise is not widened and the talar dome is smooth. There is soft tissue edema about the ankle joint, particularly over the lateral malleolus. IMPRESSION: There is soft tissue edema about the ankle joint but there is no evidence for an acute bony abnormality. Dictated by: Dictated on workstation # [id number]
== END 2021-02-13 00:56 | disposition home or self-care (01) ==
LOC: EDUNIT# 00:03 → ER 00:06
DX: S93.401A Sprain of unspecified ligament of right ankle, initial encounter (principal); E66.9 Obesity, unspecified; J45.909 Unspecified asthma, uncomplicated; I95.9 Hypotension, unspecified; E03.9 Hypothyroidism, unspecified; F17.200 Nicotine dependence, unspecified, uncomplicated; Z68.38 Body mass index [BMI] 38.0-38.9, adult; Z79.890 Hormone replacement therapy; Z79.899 Other long term (current) drug therapy; X50.1XXA Overexertion from prolonged static or awkward postures, initial encounter
CPT/HCPCS: 73610; 99282; L4350